=== PATIENT | female | born 1950 | race Caucasian/White ===

== ENCOUNTER 2018-04-28 14:50 | Inpatient (IN) ==
[2018-04-28] MEDS ORDERED: Ipratropium/Albuterol Neb 3 ML IH PRN (15:09)
[2018-04-28] MEDS: *HR* Metformin 500 MG TABLET PO SCH (17:41)
[2018-04-28] MEDS: hydrALAZINE 25 MG TABLET PO SCH (17:45)
[2018-04-28] MEDS: Budesonide/Formoterol 160/4.5 1 PUFF INH IH SCH (22:30)
[2018-04-29] MEDS: hydrALAZINE 25 MG TABLET PO SCH ×3 (00:09→17:26)
[2018-04-29 06:00] LABS: Basophils # 0.1 K/mcL (0.0-0.2); Basophils % 0.9 %; Eosinophils # 0.1 K/mcL (0.0-0.6); Eosinophils % 0.4 %; Hematocrit 48.1 % (35.3-44.9); Hemoglobin 14.9 g/dL (11.5-15.4); Immature Granulocytes % 4.3 % (0-4); Lymphocytes % 15.7 %; Mean Corpuscular Hemoglobin 27.5 pg (28.0-33.3); Mean Corpuscular Volume 88.7 fL (83.0-100.0); Mean Platelet Volume 9.8 fL (9.4-12.4); Monocytes # 1.1 K/mcL (0.0-1.3); Monocytes % 8.9 %; Neutrophils # 8.9 K/mcL (1.6-8.9); Platelet Count 272 K/mcL (140-400); Red Blood Count 5.42 M/mcL (3.82-4.97); Red Cell Distribution Width 15.1 % (11.5-14.5); Segmented Neutrophils % 69.8 %
[2018-04-29 06:25] LABS: Calcium 9.3 mg/dL (8.6-10.3); Potassium 3.4 mEq/L (3.5-5.1)
[2018-04-29] MEDS: *HR* Metformin 500 MG TABLET PO SCH ×2 (08:45→17:26)
[2018-04-29] MEDS: Aspirin 81 MG TAB.CHEW PO SCH (08:45)
[2018-04-29] MEDS: Isosorbide MONOnitrate (24 HR) 60 MG TAB.ER.24H PO SCH (08:46)
[2018-04-29] MEDS: OMEGA ACID ETHYL ESTERS PO SCH (08:47)
[2018-04-29] MEDS ORDERED: levoFLOXacin 500 MG TABLET PO SCH (09:00)
[2018-04-29] MEDS ORDERED: predniSONE 20 MG TABLET PO SCH (09:00)
[2018-04-29] MEDS ORDERED: Furosemide 40 MG TABLET PO SCH (09:00)
[2018-04-29] MEDS: Budesonide/Formoterol 160/4.5 1 PUFF INH IH SCH ×2 (09:33→21:41)
--- NOTE | 2018-04-29 16:08 | Internal Med History&Physical ---
Date of Encounter: 04/29/18 Time of Encounter: 15:25 Assessment and Plan (1) Multifocal pneumonia Current visit: No Status: Acute Continue Levaquin through May 05. Add lactobacillus. (2) Azotemia Current visit: Yes Status: Acute BUN and creatinine are 29 and 1.14 respectively with estimated GFR 48 today. Discontinue Lasix since BN peptide normal. (3) Hypokalemia Current visit: Yes Status: Acute Discontinue Lasix and give supplemental potassium. (4) Hypertension Current visit: No Status: Chronic Continue hydralazine and Cozaar. Qualifiers: Hypertension type: essential hypertension Qualified Code(s): I10 - Essential (primary) hypertension (5) DM type 2 (diabetes mellitus, type 2) Current visit: No Status: Chronic Hemoglobin A1c was 6.1% on 04/26/2018. Decrease prednisone to avoid worsening hyperglycemia. 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 Taper prednisone as per above. Continue Symbicort and use albuterol as needed. Qualifiers: COPD type: COPD with acute exacerbation Qualified Code(s): J44.1 - Chronic obstructive pulmonary disease with (acute) exacerbation (7) (HFpEF) heart failure with preserved ejection fraction Current visit: No Status: Acute Continue hydralazine, Imdur, and Cozaar. Internal Medicine - H&P: HPI Chief complaint: Pneumonia Admitted From: Hospital to Hospital Transfer Plans for Post Hospital Care: Home History of present illness: Ms. Frias is a 67 year old female who was hospitalized at [facility] April 25- for dyspnea felt to be secondary to multifocal pneumonia, exacerbation of COPD, and heart failure. She had elevated BN peptide at 366 on admission which normalized by day of discharge. She received antibiotics and stabilized and was discharged to [facility] swing bed for ongoing antibiotic and therapy intervention prior to returning to independent living at home. Respiratory history is significant for having smoked since age 44 up to 2 packs per day. She has not had PFTs. She qualified for home oxygen at her July 2015 [facility] discharge and states she wears it at bedtime but not during the daytime. She has a diagnosis of MISBAH but states she cannot tolerate CPAP. Past Med Surg Social Fam HX - Past Medical History Medical history: CHF, diabetes, fibromyalgia, GERD, hyperlipidemia, hypertension, other Additional medical history: Deteriorated discs Psychiatric history: depression - Past Surgical History Surgical History: no surgical history - Social History Smoking Status: Current every day smoker Smokeless Tobacco Status: No Alcohol use: none Drug use: none - Family History Mother Living Status: Hx Family Cardiac Disorders: Yes (CHF) Hx Family Respiratory Disorders: Yes (COPD) Hx Family Cancer: Yes (Lung, brain) Hx Family GI Disorders: No Hx Family Endocrine Disorder: No Hx Family Neuromuscular Disorders: No Hx Family Neurologic Disorders: No Hx Family HEENT Disorders: No Hx Family Autoimmune Disorders: No Father Living Status: Internal Medicine - H&P: Meds metFORMIN [Glucophage] 1,000 mg PO BIDWM 07/16/15 [History] Esomeprazole Magnesium [Nexium] 40 mg PO BID 11/22/16 [History] Albuterol Sulfate [Albuterol Inhaler] 1 - 2 puff IH Q6HR PRN 04/25/18 [History] DiphenhydraMINE [Benadryl] 25 mg PO Q4HR 04/25/18 [History] Furosemide [Lasix] 40 mg PO DAILY 04/25/18 [History] [place]-3 Acid Ethyl Esters [Lovaza] 4 gm PO DAILY 04/27/18 [History] Aspirin 81 mg PO DAILY #30 tab.chew 04/28/18 [Rx] Atorvastatin [Lipitor] 40 mg PO HS #30 tablet 04/28/18 [Rx] Budesonide/Formoterol 160/4.5 [Symbicort 160/4.5] 2 puff IH BIDR #1 inh 04/28/18 [Rx] Ipratropium/Albuterol Neb [Duoneb] 3 ml IH [id number] PRN #30 inhsol 04/28/18 [Rx] Isosorbide MONOnitrate (24 HR) [Imdur] 60 mg PO DAILY #30 tab.er.24h 04/28/18 [Rx] Losartan [Cozaar] 100 mg PO DAILY 30 Days #120 tablet 04/28/18 [Rx] hydrALAZINE [HydrALAZINE] 25 mg PO Q8HR 30 Days #90 tablet 04/28/18 [Rx] levoFLOXacin [Levaquin] 500 mg PO Q24H 7 Days #7 tablet 04/28/18 [Rx] predniSONE [PredniSONE] 10 mg PO TAPER 7 Days #21 tablet 04/28/18 [Rx] predniSONE [PredniSONE] 40 mg PO DAILY 7 Days #14 tablet 04/28/18 [Rx] Allergy/AdvReac Type Severity Reaction Status Date / Time amlodipine [From [facility]] Allergy Palpitation Verified 04/26/18 02:07 s Methadone Allergy See Verified 04/25/18 17:01 Comments metoprolol Allergy Itching Verified 04/25/18 17:01 All Systems PM: A 10-system review of systems was performed and is negative for pertinent findings except as documented above in the HPI. Review of systems: Gen.: Her weight is minimally changed from 113.398 kg on 07/16/2015 to 111.272 kg at present. Cardiovascular: She has a history of hypertension but no IL heart failure angina DVT or pulmonary embolus. She had an exercise stress test approximately 2009 which did not show ischemia. Echocardiogram during her recent [facility] stay showed LVEF of 75% and hyperdynamic LV. Interventricular septum and posterior wall thickness measurements were 1.60 and 1.00 cm respectively. The E/A ratio was 0.7. Respiratory: As per history of present illness GI: She has GERD and hiatal hernia but no known disorder of her liver or exocrine pancreas. She has known gallstones. : She denies hematuria dysuria or kidney stones. Neurologic: She denies large distribution strokes or seizures. Endocrine: She was diagnosed with DM 2 in 2012. She has hyperlipidemia but no known thyroid disease. Hematology/oncology: She denies blood disorders cancers or anemia Psychiatric: She has depression but does not take medication. She denies anxiety or other mental health issues Musk skeletal: She has degenerative disc disease and degenerative joint disease. She has chronic low back pain. She denies known gout or osteoporosis. - Constitutional Vitals: Temp Pulse Resp BP Pulse Ox 98.2 F 67 18 131/75 93 04/29/18 07:23 04/29/18 07:23 04/29/18 09:34 04/29/18 07:23 04/29/18 09:34 Exam: Gen.: She is a well-developed obese female lying in bed who appears in no severe distress at present time HEENT: Head is atraumatic and normocephalic. Eyes: EOMI. There is no scleral icterus. Mouth: Mucosa is moist. Neck: Supple and nontender. There is no thyromegaly or adenopathy noted. Heart: Regular without murmurs gallops or ectopics Lungs: No wheezes or crackles are heard. Abdomen: Soft and nontender. No masses or guarding are noted. Extremities: There is no cyanosis edema or clubbing noted. Dorsalis pedis and posttibial pulses are trace palpable bilaterally. Her feet are warm to touch. She has chronic venous stasis pigmentation changes bilaterally. Neurologic: Mental status: She is talkative and a good historian. Cranial nerves: Smile is symmetric. Forehead wrinkles bilaterally. Tongue protrudes midline. EOMI. Motor: There is no pronator drift. Cerebellar: Finger to nose is intact bilaterally. Skin: Warm and dry Internal Med - H&P Results - Labs CBC & Chem 7: 04/29/18 05:15 04/29/18 05:15 Labs: Short CBC 04/29/18 Range/Units 05:15 WBC 12.8 H (4.3-11.1) K/mcL Hgb 14.9 (11.5-15.4) g/dL Hct 48.1 H (35.3-44.9) % Plt Count 272 (140-400) K/mcL Neutrophils # 8.9 (1.6-8.9) K/mcL BMP 04/29/18 05:15 Sodium 136 Potassium 3.4 L Chloride 92 L Carbon Dioxide 33 H BUN 29 H Creatinine 1.14 Glucose 129 H Calcium 9.3
[2018-04-29 17:36] LABS: Magnesium 2.1 mg/dL (1.6-2.6)
[2018-04-29 17:48] LABS: Thyroid Stimulating Hormone 0.594 mcIU/mL (0.340-5.600)
[2018-04-29] MEDS: Lactobacillus 1 EACH CAP.SPRINK PO SCH (20:55)
[2018-04-30] MEDS: hydrALAZINE 25 MG TABLET PO SCH ×3 (00:11→16:34)
[2018-04-30] MEDS: *HR* Metformin 500 MG TABLET PO SCH ×2 (09:18→16:34)
[2018-04-30] MEDS: predniSONE 20 MG TABLET PO SCH (09:18)
[2018-04-30] MEDS: Isosorbide MONOnitrate (24 HR) 60 MG TAB.ER.24H PO SCH (09:18)
[2018-04-30] MEDS: Aspirin 81 MG TAB.CHEW PO SCH (09:18)
[2018-04-30] MEDS: Lactobacillus 1 EACH CAP.SPRINK PO SCH ×2 (09:18→22:03)
[2018-04-30] MEDS: OMEGA ACID ETHYL ESTERS PO SCH (09:19)
[2018-04-30] MEDS: Budesonide/Formoterol 160/4.5 1 PUFF INH IH SCH ×2 (09:26→22:07)
--- NOTE | 2018-04-30 11:17 | Internal Med Progress Note ---
Date of Encounter: 04/30/18 Time of Encounter: 11:10 - Assessment and plan (1) Multifocal pneumonia Current Visit: No Status: Acute Assessment and plan: April 30. Continue oral Levaquin and lactobacillus through May 05. (2) Azotemia Current Visit: Yes Status: Acute Assessment and plan: April 30. Remain off Lasix and monitor labs. (3) Hypokalemia Current Visit: Yes Status: Acute Assessment and plan: April 30. Remain off Lasix and monitor labs. (4) Hypertension Current Visit: No Status: Chronic Assessment and plan: April 30. Continue hydralazine and Cozaar Qualifiers: Hypertension type: essential hypertension Qualified Code(s): I10 - Essential (primary) hypertension (5) DM type 2 (diabetes mellitus, type 2) Current Visit: No Status: Chronic Assessment and plan: April 30. Hemoglobin A1c was 6.1% on 04/26/2018. Continue Glucophage and lower dose prednisone. Qualifiers: Diabetes mellitus roll changer insulin use: with halfway use Diabetes mellitus complication status: with unspecified complications Qualified Code(s): E11.8 - Type 2 diabetes mellitus with unspecified complications; Z79.4 - long-term (current) use of insulin (6) COPD (chronic obstructive pulmonary disease) Current Visit: No Status: Acute Assessment and plan: April 30. Continue Symbicort and tapering prednisone. Qualifiers: COPD type: COPD with acute exacerbation Qualified Code(s): J44.1 - Chronic obstructive pulmonary disease with (acute) exacerbation (7) (HFpEF) heart failure with preserved ejection fraction Current Visit: No Status: Acute Assessment and plan: April 30. Continue hydralazine, Imdur, and Cozaar - Subjective Interval history: April 30. She has no new complaints and feels better. She states she has ambulated to the bathroom using a wheeled walker with contact guard assist from staff. - Constitutional Vitals: Temp Pulse Resp BP Pulse Ox 98.1 F 71 17 133/77 96 04/30/18 07:01 04/30/18 07:01 04/30/18 07:01 04/30/18 07:01 04/30/18 07:01 Exam: She is resting comfortably in bed and appears in no acute distress. Her affect is bright and cheerful. I reviewed her medications and lab results. Internal Medicine: Result - Labs CBC & Chem 7: 04/29/18 05:15 04/29/18 05:15 Consult Discharge Plan - Plan Referrals: NONE,PCP [Primary Care Provider] - 1 week
[2018-05-01] MEDS: hydrALAZINE 25 MG TABLET PO SCH ×3 (00:27→16:10)
[2018-05-01 05:00] LABS: Basophils % 0.2 %; Eosinophils # 0.1 K/mcL (0.0-0.6); Eosinophils % 0.3 %; Hematocrit 49.1 % (35.3-44.9); Hemoglobin 15.6 g/dL (11.5-15.4); Immature Granulocytes % 6.1 % (0-4); Lymphocytes # 2.4 K/mcL (0.6-4.6); Lymphocytes % 13.7 %; Mean Corpuscular HGB Conc 31.8 g/dL (31.6-35.5); Mean Corpuscular Hemoglobin 27.4 pg (28.0-33.3); Mean Corpuscular Volume 86.1 fL (83.0-100.0); Mean Platelet Volume 9.5 fL (9.4-12.4); Monocytes # 1.1 K/mcL (0.0-1.3); Monocytes % 6.5 %; Neutrophils # 12.7 K/mcL (1.6-8.9); Platelet Count 311 K/mcL (140-400); Red Cell Distribution Width 15.1 % (11.5-14.5); Segmented Neutrophils % 73.2 %
[2018-05-01 05:21] LABS: BUN/Creatinine Ratio 25 (6-26); Blood Urea Nitrogen 28 mg/dL (8-23); Calcium 9.4 mg/dL (8.6-10.3); Carbon Dioxide 31 mEq/L (23-29); Chloride 93 mEq/L (98-107); Glucose 144 mg/dL (70-105); Osmolality,Calculated 284 (280-300); Potassium 3.5 mEq/L (3.5-5.1); Sodium 133 mEq/L (136-145); eGFR For Non-African Americans 50 (> 60)
[2018-05-01 05:31] LABS: Platelet Estimate Normal (Normal)
[2018-05-01] MEDS: *HR* Metformin 500 MG TABLET PO SCH (07:17)
[2018-05-01] MEDS: OMEGA ACID ETHYL ESTERS PO SCH (08:08)
[2018-05-01] MEDS: Aspirin 81 MG TAB.CHEW PO SCH (08:11)
[2018-05-01] MEDS: Isosorbide MONOnitrate (24 HR) 60 MG TAB.ER.24H PO SCH (08:12)
[2018-05-01] MEDS: Lactobacillus 1 EACH CAP.SPRINK PO SCH ×2 (08:12→20:08)
[2018-05-01] MEDS: predniSONE 20 MG TABLET PO SCH (08:13)
[2018-05-01] MEDS ORDERED: levoFLOXacin 500 MG TABLET PO SCH (09:00)
[2018-05-01] MEDS: Budesonide/Formoterol 160/4.5 1 PUFF INH IH SCH ×2 (09:40→21:48)
--- NOTE | 2018-05-01 10:55 | Internal Med Progress Note ---
Date of Encounter: 05/01/18 Time of Encounter: 10:45 - Assessment and plan (1) Multifocal pneumonia Current Visit: No Status: Acute Assessment and plan: April 30. Continue oral Levaquin and lactobacillus through May 05. (2) Azotemia Current Visit: Yes Status: Acute Assessment and plan: April 30. Remain off Lasix and monitor labs. (3) Hypokalemia Current Visit: Yes Status: Acute Assessment and plan: April 30. Remain off Lasix and monitor labs. May 01. Potassium improved to 3.5 and creatinine decreased to 1.10. Continue present management. (4) Hypertension Current Visit: No Status: Chronic Assessment and plan: April 30. Continue hydralazine and Cozaar Qualifiers: Hypertension type: essential hypertension Qualified Code(s): I10 - Essential (primary) hypertension (5) DM type 2 (diabetes mellitus, type 2) Current Visit: No Status: Chronic Assessment and plan: April 30. Hemoglobin A1c was 6.1% on 04/26/2018. Continue Glucophage and lower dose prednisone. May 01. Hold Glucophage and discontinue prednisone and see if blood sugars remain stable and diarrhea improves. Qualifiers: Diabetes mellitus care home insulin use: with care home use Diabetes mellitus complication status: with unspecified complications Qualified Code(s): E11.8 - Type 2 diabetes mellitus with unspecified complications; Z79.4 - senior care (current) use of insulin (6) COPD (chronic obstructive pulmonary disease) Current Visit: No Status: Acute Assessment and plan: April 30. Continue Symbicort and tapering prednisone. May 01. Continue Symbicort. Discontinue prednisone. Qualifiers: COPD type: COPD with acute exacerbation Qualified Code(s): J44.1 - Chronic obstructive pulmonary disease with (acute) exacerbation (7) (HFpEF) heart failure with preserved ejection fraction Current Visit: No Status: Acute Assessment and plan: April 30. Continue hydralazine, Imdur, and Cozaar (8) Insomnia Current Visit: Yes Status: Acute Assessment and plan: May 01. Order trazodone. Qualifiers: Insomnia type: unspecified Qualified Code(s): G47.00 - Insomnia, unspecified - Subjective Interval history: April 30. She has no new complaints and feels better. She states she has ambulated to the bathroom using a wheeled walker with contact guard assist from staff. May 01. She states she is fatigued from having multiple episodes of "diarrhea" during the evening and did not sleep well. - Constitutional Vitals: Temp Pulse Resp BP Pulse Ox 98.3 F 96 17 163/77 97 05/01/18 07:08 05/01/18 07:08 05/01/18 07:08 05/01/18 07:08 05/01/18 07:08 Exam: She is resting comfortably in bed and appears in no acute distress. Her affect is overall cheerful. Her lungs are clear. I reviewed her medications and lab results. Internal Medicine: Result - Labs CBC & Chem 7: 05/01/18 04:36 05/01/18 04:36 Labs: Short CBC 05/01/18 Range/Units 04:36 WBC 17.4 H (4.3-11.1) K/mcL Hgb 15.6 H (11.5-15.4) g/dL Hct 49.1 H (35.3-44.9) % Plt Count 311 (140-400) K/mcL Neutrophils # 12.7 H (1.6-8.9) K/mcL BMP 05/01/18 04:36 Sodium 133 L Potassium 3.5 Chloride 93 L Carbon Dioxide 31 H BUN 28 H Creatinine 1.10 Glucose 144 H Calcium 9.4 Consult Discharge Plan - Plan Referrals: NONE,PCP [Primary Care Provider] - 1 week ([facility] Tuesday @ 1100AM at [facility]. )
[2018-05-01] MEDS ORDERED: traZODone 50 MG TABLET PO SCH (21:00)
[2018-05-02] MEDS: hydrALAZINE 25 MG TABLET PO SCH ×2 (00:22→08:25)
[2018-05-02 05:41] VITALS: BP 146/79
[2018-05-02] MEDS: Aspirin 81 MG TAB.CHEW PO SCH (08:25)
[2018-05-02] MEDS: Isosorbide MONOnitrate (24 HR) 60 MG TAB.ER.24H PO SCH (08:25)
[2018-05-02] MEDS: Lactobacillus 1 EACH CAP.SPRINK PO SCH (08:26)
[2018-05-02] MEDS: OMEGA ACID ETHYL ESTERS PO SCH (08:29)
[2018-05-02] MEDS ORDERED: levoFLOXacin 500 MG TABLET PO SCH (09:00)
[2018-05-02] MEDS: Budesonide/Formoterol 160/4.5 1 PUFF INH IH SCH (09:20)
--- NOTE | 2018-05-02 10:50 | Discharge Summary ---
Orders not resulted at time of discharge: Pending orders 05/17/18 15:43 CT chest wo con [CT] Routine Date of Encounter: 05/02/18 Time of Encounter: 10:40 - Discharge Diagnosis (1) Multifocal pneumonia Priority: Primary Status: Acute (2) Azotemia Priority: Secondary Status: Acute (3) Hypokalemia Priority: Secondary Status: Acute (4) Hypertension Priority: Secondary Status: Chronic Qualifiers: Hypertension type: essential hypertension Qualified Code(s): I10 - Essential (primary) hypertension (5) DM type 2 (diabetes mellitus, type 2) Priority: Secondary Status: Chronic Qualifiers: Diabetes mellitus half-way insulin use: with salvage determiner use Diabetes mellitus complication status: with unspecified complications Qualified Code(s): E11.8 - Type 2 diabetes mellitus with unspecified complications; Z79.4 - superintendent marine oil terminal (current) use of insulin (6) COPD (chronic obstructive pulmonary disease) Priority: Secondary Status: Acute Qualifiers: COPD type: COPD with acute exacerbation Qualified Code(s): J44.1 - Chronic obstructive pulmonary disease with (acute) exacerbation (7) (HFpEF) heart failure with preserved ejection fraction Priority: Secondary Status: Acute (8) Insomnia Priority: Secondary Status: Acute Qualifiers: Insomnia type: unspecified Qualified Code(s): G47.00 - Insomnia, unspecified Hospital course: Ms. Frias is a 67 year old female who was hospitalized at [facility] April 25- for dyspnea felt to be secondary to multifocal pneumonia, exacerbation of COPD, and heart failure. She had elevated BN peptide at 366 on admission which normalized by day of discharge. She received antibiotics and stabilized and was discharged to [facility] swing bed for ongoing antibiotic and therapy intervention prior to returning to independent living at home. Initial orders were written by the discharging physicians at [facility]. I saw her on April 29 and performed a swing bed history and physical. She was continued on Levaquin. Lactobacillus was added. She remained afebrile during her hospital stay. WBC re to 17.4 with 73.2% segs on May 01. Follow-up labs were planned before discharge but on May 02 she stated she wished to be discharged home and follow up as an outpatient. Her PCP can monitor labs. Lasix was discontinued since she had no clinical or lab evidence of heart failure. BN peptide remained normal during her hospital stay. She will remain off Lasix at discharge. Azotemia and hypokalemia improved off diuretics with potassium level rising to 3.5 by May 01. BUN and creatinine had improved to 28 and 1.10 respectively with estimated GFR 50 by May 01. Blood pressure remained well controlled on hydralazine and Cozaar. She complained of diarrhea. Glucophage was held and prn Imodium was given. Diarrhea resolved by day of discharge. Blood sugars remain satisfactorily controlled. She will remain off Glucophage at discharge. She will follow with her PCP Suman Scott CNP within 1 week. I encouraged her to wear her oxygen 29/11. PCP can monitor oximetry on room air to see if continuous use is still required. - Time Spent with Patient Total time spent providing and/or coordinating discharge services: - Discharge Medications Prescriptions: Lactobacillus [Culturelle] 1 each PO BID #6 cap.sprink levoFLOXacin [Levaquin] 500 mg PO Q24H #3 tablet Home Medications: Albuterol Sulfate [Albuterol Inhaler] 1 - 2 puff IH Q6HR PRN 04/25/18 [History] [place]-3 Acid Ethyl Esters [Lovaza] 4 gm PO DAILY 04/27/18 [History] Aspirin 81 mg PO DAILY #30 tab.chew 04/28/18 [Rx] Atorvastatin [Lipitor] 40 mg PO HS #30 tablet 04/28/18 [Rx] Budesonide/Formoterol 160/4.5 [Symbicort 160/4.5] 2 puff IH BIDR #1 inh 04/28/18 [Rx] Ipratropium/Albuterol Neb [Duoneb] 3 ml IH [id number] PRN #30 inhsol 04/28/18 [Rx] Isosorbide MONOnitrate (24 HR) [Imdur] 60 mg PO DAILY #30 tab.er.24h 04/28/18 [Rx] Losartan [Cozaar] 100 mg PO DAILY 30 Days #120 tablet 04/28/18 [Rx] hydrALAZINE [HydrALAZINE] 25 mg PO Q8HR 30 Days #90 tablet 04/28/18 [Rx] Lactobacillus [Culturelle] 1 each PO BID #6 cap.sprink 05/02/18 [Rx] levoFLOXacin [Levaquin] 500 mg PO Q24H #3 tablet 12/25/18 [Rx] Allergies/Adverse Reactions: Allergy/AdvReac Type Severity Reaction Status Date / Time amlodipine [From [facility]] Allergy Palpitation Verified 04/26/18 02:07 s Methadone Allergy See Verified 04/25/18 17:01 Comments metoprolol Allergy Itching Verified 04/25/18 17:01 Date of admission: 04/28/18 15:01 Primary care physician: Suman Scott CNP Consults: 04/28/18 15:22 Consult to Physical Therapy [CONS] Routine Comment: Evaluate, develop and implement POC Reason for Consult: Evaluate, develop and implement POC Does patient have active BEDREST order?: No Is patient medically & hemodynamically stable?: Yes Patient assessed for mobility or mobilized this visit?: Yes OT [Consult to Occupational Therapy] [CONS] Routine Comment: Evaluate, develop and implement POC Reason for Consult: Evaluate, develop and implement POC Does patient have active BEDREST order?: No Is patient medically & hemodynamically stable?: Yes Patient assessed for mobility or mobilized this visit?: Yes 04/29/18 16:23 Consult to Physical Therapy [CONS] Routine Comment: Evaluate, develop and implement POC Reason for Consult: Weakness Does patient have active BEDREST order?: No Is patient medically & hemodynamically stable?: Yes Patient assessed for mobility or mobilized this visit?: Yes - Constitutional Vitals: Temp Pulse Resp BP Pulse Ox 98.3 F 105 16 146/79 95 05/02/18 05:40 05/02/18 05:40 05/02/18 09:21 05/02/18 05:40 05/02/18 09:21 - Patient Status Disposition: Home, Self-Care - Discharge Instructions Follow Up With: Suman Scott, [place] [Advanced Practice Nurse] - 1 week - Diet and Activity Activity: resume usual activities as tolerated, wear oxygen at all times Diet: diabetic diet
== END 2018-05-02 12:20 | disposition home or self-care (01) | DRG 194 ==
LOC: INPPIK 15:01
PROVIDERS: ADMIT Internal Medicine; ATTEND Internal Medicine

== ENCOUNTER 2020-09-11 11:27 | Inpatient (IN) ==
[2020-09-11] MEDS: Ipratropium 1 PUFF INHALER IH SCH ×2 (16:20→20:45)
[2020-09-11] MEDS: Levalbuterol 1 PUFF INHALER IH SCH ×2 (16:21→20:45)
[2020-09-11] MEDS: *HR* Rivaroxaban 10 MG TABLET PO SCH (17:11)
[2020-09-11] MEDS: Gabapentin 400 MG CAPSULE PO SCH ×2 (17:11→21:23)
[2020-09-11] MEDS: carvediloL 25 MG TABLET PO SCH (17:12)
[2020-09-11] MEDS: *HR* Metformin 500 MG TABLET PO SCH (17:12)
[2020-09-11] MEDS: Budesonide/Formoterol 160/4.5 1 PUFF INH IH SCH (20:46)
[2020-09-12] MEDS: Levalbuterol 1 PUFF INHALER IH SCH ×6 (00:46→21:45)
[2020-09-12] MEDS: Ipratropium 1 PUFF INHALER IH SCH ×6 (00:47→21:44)
[2020-09-12] MEDS: Levothyroxine 25 MCG TABLET PO SCH (04:35)
[2020-09-12 06:38] LABS: Basophils # 0.1 K/mcL (0.0-0.2); Basophils % 0.6 %; Eosinophils % 0.2 %; Hematocrit 37.3 % (35.3-44.9); Hemoglobin 10.9 g/dL (11.5-15.4); Immature Granulocytes % 4.5 % (0-4); Lymphocytes % 7.1 %; Mean Corpuscular HGB Conc 29.2 g/dL (31.6-35.5); Mean Corpuscular Hemoglobin 23.1 pg (28.0-33.3); Mean Platelet Volume 9.3 fL (9.4-12.4); Monocytes # 0.9 K/mcL (0.0-1.3); Monocytes % 6.5 %; Neutrophils # 11.8 K/mcL (1.6-8.9); Nucleated Red Blood Cells 0.1 /100 WBC (0); Platelet Count 295 K/mcL (140-400); Red Blood Count 4.72 M/mcL (3.82-4.97); Red Cell Distribution Width 16.4 % (11.5-14.5); Segmented Neutrophils % 81.1 %; White Blood Count 14.5 K/mcL (4.3-11.1)
[2020-09-12 07:18] LABS: BUN/Creatinine Ratio 39 (6-26); Blood Urea Nitrogen 31 mg/dL (8-23); Calcium 8.8 mg/dL (8.6-10.3); Carbon Dioxide 27 mEq/L (23-29); Chloride 100 mEq/L (98-107); Glucose 145 mg/dL (70-105); Osmolality,Calculated 293 (280-300); Potassium 4.2 mEq/L (3.5-5.1); Sodium 137 mEq/L (136-145); eGFR For African Americans > 60 (> 60); eGFR For Non-African Americans > 60 (> 60)
[2020-09-12] MEDS: Budesonide/Formoterol 160/4.5 1 PUFF INH IH SCH ×2 (07:55→21:43)
[2020-09-12] MEDS: Furosemide 40 MG TABLET PO SCH (08:48)
[2020-09-12] MEDS: carvediloL 25 MG TABLET PO SCH ×2 (08:48→16:23)
[2020-09-12] MEDS: Aspirin 81 MG TAB.CHEW PO SCH (08:48)
[2020-09-12] MEDS: *HR* Metformin 500 MG TABLET PO SCH ×2 (08:48→16:23)
[2020-09-12] MEDS: Gabapentin 400 MG CAPSULE PO SCH ×3 (08:48→20:46)
[2020-09-12] MEDS: DilTIAZem CD (24hr) 180 MG CAP.ER.24H PO SCH (08:48)
[2020-09-12] MEDS: *HR* Rivaroxaban 10 MG TABLET PO SCH (16:24)
[2020-09-12] MEDS: Methyl Salicylate/Menthol 57 APPL/57 GM TUBE TP PRN (16:25)
[2020-09-12] MEDS: Insulin LISPRO 300 UNITS/3 ML VIAL SUBQ SCH ×2 (16:37→20:46)
[2020-09-13] MEDS: Levalbuterol 1 PUFF INHALER IH SCH ×4 (03:06→22:02)
[2020-09-13] MEDS: Ipratropium 1 PUFF INHALER IH SCH ×4 (03:07→22:02)
[2020-09-13] MEDS: Levothyroxine 25 MCG TABLET PO SCH (05:50)
[2020-09-13] MEDS: Insulin LISPRO 300 UNITS/3 ML VIAL SUBQ SCH ×4 (08:07→21:10)
[2020-09-13] MEDS: carvediloL 25 MG TABLET PO SCH ×2 (08:08→17:36)
[2020-09-13] MEDS: Aspirin 81 MG TAB.CHEW PO SCH (08:08)
[2020-09-13] MEDS: DilTIAZem CD (24hr) 180 MG CAP.ER.24H PO SCH (08:08)
[2020-09-13] MEDS: *HR* Metformin 500 MG TABLET PO SCH ×2 (08:08→17:36)
[2020-09-13] MEDS: Furosemide 40 MG TABLET PO SCH (08:08)
[2020-09-13] MEDS: Gabapentin 400 MG CAPSULE PO SCH ×3 (08:08→21:09)
[2020-09-13] MEDS: Budesonide/Formoterol 160/4.5 1 PUFF INH IH SCH ×2 (09:22→22:01)
[2020-09-13] MEDS ORDERED: 0.9 % Sodium Chloride 500 ML IVC ONE (12:18)
[2020-09-13] MEDS ORDERED: 0.9 % Sodium Chloride 500 ML ONE (13:48)
[2020-09-13] MEDS ORDERED: 0.9 % Sodium Chloride 500 ML IVC PRN (13:50)
[2020-09-13] MEDS: *HR* Rivaroxaban 10 MG TABLET PO SCH (17:36)
[2020-09-14] MEDS: Levalbuterol 1 PUFF INHALER IH SCH ×4 (04:47→22:56)
[2020-09-14] MEDS: Ipratropium 1 PUFF INHALER IH SCH ×4 (04:48→22:57)
[2020-09-14] MEDS: Levothyroxine 25 MCG TABLET PO SCH (05:20)
[2020-09-14] MEDS: DilTIAZem CD (24hr) 180 MG CAP.ER.24H PO SCH (07:53)
[2020-09-14] MEDS: Furosemide 40 MG TABLET PO SCH (07:53)
[2020-09-14] MEDS: *HR* Metformin 500 MG TABLET PO SCH ×2 (07:53→16:35)
[2020-09-14] MEDS: Insulin LISPRO 300 UNITS/3 ML VIAL SUBQ SCH ×3 (07:53→16:36)
[2020-09-14] MEDS: Aspirin 81 MG TAB.CHEW PO SCH (07:53)
[2020-09-14] MEDS: Gabapentin 400 MG CAPSULE PO SCH ×3 (07:53→19:27)
[2020-09-14] MEDS: Budesonide/Formoterol 160/4.5 1 PUFF INH IH SCH ×2 (09:52→22:56)
[2020-09-14] MEDS: Nystatin Cream 15 GM TUBE TP SCH ×2 (15:21→19:29)
[2020-09-14] MEDS: *HR* Rivaroxaban 10 MG TABLET PO SCH (16:35)
[2020-09-15] MEDS: Levalbuterol 1 PUFF INHALER IH SCH ×4 (04:24→22:50)
[2020-09-15] MEDS: Ipratropium 1 PUFF INHALER IH SCH ×4 (04:24→22:49)
[2020-09-15] MEDS: Levothyroxine 25 MCG TABLET PO SCH (06:02)
[2020-09-15] MEDS: Insulin LISPRO 300 UNITS/3 ML VIAL SUBQ SCH ×5 (06:03→20:22)
[2020-09-15 07:18] LABS: Basophils % 0.2 %; Eosinophils # 0.4 K/mcL (0.0-0.6); Eosinophils % 3.4 %; Hematocrit 34.3 % (35.3-44.9); Immature Granulocytes % 1.5 % (0-4); Lymphocytes # 0.8 K/mcL (0.6-4.6); Lymphocytes % 6.4 %; Mean Corpuscular HGB Conc 29.2 g/dL (31.6-35.5); Mean Corpuscular Hemoglobin 23.3 pg (28.0-33.3); Mean Platelet Volume 10.1 fL (9.4-12.4); Monocytes # 0.9 K/mcL (0.0-1.3); Platelet Count 285 K/mcL (140-400); Red Blood Count 4.29 M/mcL (3.82-4.97); Segmented Neutrophils % 81.5 %; White Blood Count 12.6 K/mcL (4.3-11.1)
[2020-09-15 07:27] LABS: BUN/Creatinine Ratio 28 (6-26); Blood Urea Nitrogen 22 mg/dL (8-23); Calcium 8.4 mg/dL (8.6-10.3); Carbon Dioxide 35 mEq/L (23-29); Chloride 99 mEq/L (98-107); Glucose 216 mg/dL (70-105); Osmolality,Calculated 296 (280-300); Potassium 4.2 mEq/L (3.5-5.1); Sodium 138 mEq/L (136-145); eGFR For African Americans > 60 (> 60); eGFR For Non-African Americans > 60 (> 60)
[2020-09-15 07:32] LABS: Neutrophils # 10.3 K/mcL (1.6-8.9)
[2020-09-15] MEDS: Gabapentin 400 MG CAPSULE PO SCH ×3 (07:39→20:23)
[2020-09-15] MEDS: carvediloL 25 MG TABLET PO SCH ×2 (07:39→17:03)
[2020-09-15] MEDS: Aspirin 81 MG TAB.CHEW PO SCH (07:39)
[2020-09-15] MEDS: *HR* Metformin 500 MG TABLET PO SCH ×2 (07:39→17:02)
[2020-09-15] MEDS: Nystatin Cream 15 GM TUBE TP SCH ×3 (07:39→20:31)
[2020-09-15] MEDS: DilTIAZem CD (24hr) 180 MG CAP.ER.24H PO SCH (07:40)
[2020-09-15] MEDS: Furosemide 40 MG TABLET PO SCH (07:40)
[2020-09-15] MEDS: Budesonide/Formoterol 160/4.5 1 PUFF INH IH SCH ×2 (09:12→22:49)
[2020-09-15] MEDS ORDERED: Acetaminophen 325 MG TABLET PO PRN (16:48)
[2020-09-15] MEDS: *HR* Rivaroxaban 10 MG TABLET PO SCH (17:04)
[2020-09-16] MEDS: Ipratropium 1 PUFF INHALER IH SCH ×4 (04:28→21:42)
[2020-09-16] MEDS: Levalbuterol 1 PUFF INHALER IH SCH ×4 (04:28→21:43)
[2020-09-16] MEDS: Levothyroxine 25 MCG TABLET PO SCH (05:24)
[2020-09-16] MEDS: carvediloL 25 MG TABLET PO SCH ×2 (08:31→16:53)
[2020-09-16] MEDS: DilTIAZem CD (24hr) 180 MG CAP.ER.24H PO SCH (08:31)
[2020-09-16] MEDS: Aspirin 81 MG TAB.CHEW PO SCH (08:32)
[2020-09-16] MEDS: Gabapentin 400 MG CAPSULE PO SCH ×3 (08:32→20:33)
[2020-09-16] MEDS: *HR* Metformin 500 MG TABLET PO SCH ×2 (08:32→16:53)
[2020-09-16] MEDS: Furosemide 40 MG TABLET PO SCH (08:32)
[2020-09-16] MEDS: Insulin LISPRO 300 UNITS/3 ML VIAL SUBQ SCH ×4 (08:33→21:54)
[2020-09-16] MEDS: Budesonide/Formoterol 160/4.5 1 PUFF INH IH SCH ×2 (10:51→21:44)
[2020-09-16] MEDS: Nystatin Cream 15 GM TUBE TP SCH ×3 (12:12→20:33)
[2020-09-16] MEDS: *HR* Rivaroxaban 10 MG TABLET PO SCH (16:53)
[2020-09-17] MEDS: Levalbuterol 1 PUFF INHALER IH SCH ×2 (04:15→11:03)
[2020-09-17] MEDS: Ipratropium 1 PUFF INHALER IH SCH ×2 (04:16→11:03)
[2020-09-17] MEDS: Levothyroxine 25 MCG TABLET PO SCH (05:47)
[2020-09-17] MEDS: Aspirin 81 MG TAB.CHEW PO SCH (07:48)
[2020-09-17] MEDS: Gabapentin 400 MG CAPSULE PO SCH ×3 (07:48→19:44)
[2020-09-17] MEDS: Furosemide 40 MG TABLET PO SCH (07:48)
[2020-09-17] MEDS: DilTIAZem CD (24hr) 180 MG CAP.ER.24H PO SCH (07:48)
[2020-09-17] MEDS: Nystatin Cream 15 GM TUBE TP SCH ×3 (07:48→19:45)
[2020-09-17] MEDS: *HR* Metformin 500 MG TABLET PO SCH ×2 (07:48→16:59)
[2020-09-17] MEDS: carvediloL 25 MG TABLET PO SCH ×2 (07:48→16:59)
[2020-09-17] MEDS: Insulin LISPRO 300 UNITS/3 ML VIAL SUBQ SCH ×4 (07:51→19:45)
[2020-09-17] MEDS: Budesonide/Formoterol 160/4.5 1 PUFF INH IH SCH ×2 (11:04→22:15)
[2020-09-17] MEDS ORDERED: Ipratropium 1 PUFF INHALER IH PRN (14:16)
[2020-09-17] MEDS ORDERED: Levalbuterol 1 PUFF INHALER IH PRN (14:19)
[2020-09-17] MEDS: *HR* Rivaroxaban 10 MG TABLET PO SCH (16:59)
[2020-09-17] MEDS: Simethicone 80 MG TAB.CHEW PO PRN (16:59)
[2020-09-17] MEDS: hydrOXYzine pamoate 25 MG CAPSULE PO PRN (16:59)
[2020-09-18] MEDS: Levothyroxine 25 MCG TABLET PO SCH (05:02)
[2020-09-18] MEDS: Budesonide/Formoterol 160/4.5 1 PUFF INH IH SCH ×2 (07:42→22:45)
[2020-09-18] MEDS: DilTIAZem CD (24hr) 180 MG CAP.ER.24H PO SCH (08:16)
[2020-09-18] MEDS: Gabapentin 400 MG CAPSULE PO SCH ×3 (08:16→20:06)
[2020-09-18] MEDS: *HR* Metformin 500 MG TABLET PO SCH ×2 (08:16→16:55)
[2020-09-18] MEDS: Aspirin 81 MG TAB.CHEW PO SCH (08:16)
[2020-09-18] MEDS: Insulin LISPRO 300 UNITS/3 ML VIAL SUBQ SCH ×4 (08:16→20:07)
[2020-09-18] MEDS: carvediloL 25 MG TABLET PO SCH ×2 (08:16→16:55)
[2020-09-18] MEDS: Furosemide 40 MG TABLET PO SCH (08:16)
[2020-09-18] MEDS: Nystatin Cream 15 GM TUBE TP SCH (08:18)
[2020-09-18] MEDS: Nystatin POWDER 30 GM BOTTLE TP SCH ×2 (11:36→21:28)
[2020-09-18] MEDS: *HR* Rivaroxaban 10 MG TABLET PO SCH (16:55)
[2020-09-18] MEDS: Simethicone 80 MG TAB.CHEW PO PRN (16:55)
[2020-09-19] MEDS: Levothyroxine 25 MCG TABLET PO SCH (05:04)
[2020-09-19] MEDS: hydrOXYzine pamoate 25 MG CAPSULE PO PRN ×2 (08:38→20:37)
[2020-09-19] MEDS: *HR* Metformin 500 MG TABLET PO SCH ×2 (08:38→15:38)
[2020-09-19] MEDS: Gabapentin 400 MG CAPSULE PO SCH ×3 (08:38→20:37)
[2020-09-19] MEDS: DilTIAZem CD (24hr) 180 MG CAP.ER.24H PO SCH (08:38)
[2020-09-19] MEDS: Furosemide 40 MG TABLET PO SCH (08:38)
[2020-09-19] MEDS: Insulin LISPRO 300 UNITS/3 ML VIAL SUBQ SCH ×4 (08:39→20:38)
[2020-09-19] MEDS: carvediloL 25 MG TABLET PO SCH ×2 (08:39→15:38)
[2020-09-19] MEDS: Aspirin 81 MG TAB.CHEW PO SCH (08:39)
[2020-09-19] MEDS: Budesonide/Formoterol 160/4.5 1 PUFF INH IH SCH ×2 (09:53→22:17)
[2020-09-19] MEDS: Nystatin POWDER 30 GM BOTTLE TP SCH ×2 (15:08→20:40)
[2020-09-19] MEDS: *HR* Rivaroxaban 10 MG TABLET PO SCH (15:38)
[2020-09-20] MEDS: Levothyroxine 25 MCG TABLET PO SCH (05:11)
[2020-09-20] MEDS: *HR* Metformin 500 MG TABLET PO SCH ×2 (09:02→16:33)
[2020-09-20] MEDS: carvediloL 25 MG TABLET PO SCH ×2 (09:02→16:33)
[2020-09-20] MEDS: DilTIAZem CD (24hr) 180 MG CAP.ER.24H PO SCH (09:02)
[2020-09-20] MEDS: Simethicone 80 MG TAB.CHEW PO PRN (09:03)
[2020-09-20] MEDS: Nystatin POWDER 30 GM BOTTLE TP SCH ×2 (09:03→20:57)
[2020-09-20] MEDS: Aspirin 81 MG TAB.CHEW PO SCH (09:03)
[2020-09-20] MEDS: Furosemide 40 MG TABLET PO SCH (09:03)
[2020-09-20] MEDS: hydrOXYzine pamoate 25 MG CAPSULE PO PRN ×2 (09:03→20:50)
[2020-09-20] MEDS: Gabapentin 400 MG CAPSULE PO SCH ×3 (09:03→20:48)
[2020-09-20] MEDS: Insulin LISPRO 300 UNITS/3 ML VIAL SUBQ SCH ×4 (09:04→20:48)
[2020-09-20] MEDS: Budesonide/Formoterol 160/4.5 1 PUFF INH IH SCH ×2 (09:56→22:06)
[2020-09-20] MEDS: *HR* Rivaroxaban 10 MG TABLET PO SCH (16:33)
[2020-09-20] MEDS: Methyl Salicylate/Menthol 57 APPL/57 GM TUBE TP PRN (22:30)
[2020-09-21] MEDS: Levothyroxine 25 MCG TABLET PO SCH (05:26)
[2020-09-21] MEDS: Furosemide 40 MG TABLET PO SCH (07:31)
[2020-09-21] MEDS: carvediloL 25 MG TABLET PO SCH ×2 (07:31→16:39)
[2020-09-21] MEDS: DilTIAZem CD (24hr) 180 MG CAP.ER.24H PO SCH (07:31)
[2020-09-21] MEDS: Gabapentin 400 MG CAPSULE PO SCH ×3 (07:32→20:48)
[2020-09-21] MEDS: Aspirin 81 MG TAB.CHEW PO SCH (07:32)
[2020-09-21] MEDS: *HR* Metformin 500 MG TABLET PO SCH ×2 (07:32→16:39)
[2020-09-21] MEDS: Nystatin POWDER 30 GM BOTTLE TP SCH ×2 (07:33→20:47)
[2020-09-21] MEDS: Insulin LISPRO 300 UNITS/3 ML VIAL SUBQ SCH ×4 (08:07→20:25)
[2020-09-21] MEDS: Budesonide/Formoterol 160/4.5 1 PUFF INH IH SCH ×2 (10:40→21:36)
[2020-09-21] MEDS: *HR* Rivaroxaban 10 MG TABLET PO SCH (16:39)
[2020-09-21] MEDS: hydrOXYzine pamoate 25 MG CAPSULE PO PRN (20:48)
[2020-09-22] MEDS: Levothyroxine 25 MCG TABLET PO SCH (05:39)
[2020-09-22] MEDS: Furosemide 40 MG TABLET PO SCH (08:36)
[2020-09-22] MEDS: *HR* Metformin 500 MG TABLET PO SCH ×2 (08:36→16:54)
[2020-09-22] MEDS: DilTIAZem CD (24hr) 180 MG CAP.ER.24H PO SCH (08:36)
[2020-09-22] MEDS: Gabapentin 400 MG CAPSULE PO SCH ×3 (08:36→20:22)
[2020-09-22] MEDS: Aspirin 81 MG TAB.CHEW PO SCH (08:36)
[2020-09-22] MEDS: carvediloL 25 MG TABLET PO SCH ×2 (08:36→16:54)
[2020-09-22] MEDS: Nystatin POWDER 30 GM BOTTLE TP SCH ×2 (08:39→20:26)
[2020-09-22] MEDS: Insulin LISPRO 300 UNITS/3 ML VIAL SUBQ SCH ×4 (08:45→20:32)
[2020-09-22 09:48] LABS: Basophils % 0.3 %; Eosinophils # 0.2 K/mcL (0.0-0.6); Eosinophils % 2.8 %; Hematocrit 31.9 % (35.3-44.9); Hemoglobin 9.3 g/dL (11.5-15.4); Immature Granulocytes % 0.5 % (0-4); Lymphocytes % 12.8 %; Mean Corpuscular HGB Conc 29.2 g/dL (31.6-35.5); Mean Corpuscular Hemoglobin 24.3 pg (28.0-33.3); Mean Corpuscular Volume 83.5 fL (83.0-100.0); Mean Platelet Volume 10.4 fL (9.4-12.4); Monocytes # 0.6 K/mcL (0.0-1.3); Monocytes % 7.4 %; Platelet Count 171 K/mcL (140-400); Red Blood Count 3.82 M/mcL (3.82-4.97); Segmented Neutrophils % 76.2 %; White Blood Count 7.9 K/mcL (4.3-11.1)
[2020-09-22] MEDS: Budesonide/Formoterol 160/4.5 1 PUFF INH IH SCH ×2 (11:15→22:08)
[2020-09-22 11:58] LABS: BUN/Creatinine Ratio 21 (6-26); Blood Urea Nitrogen 19 mg/dL (8-23); Calcium 8.5 mg/dL (8.6-10.3); Carbon Dioxide 38 mEq/L (23-29); Chloride 94 mEq/L (98-107); Glucose 223 mg/dL (70-105); Osmolality,Calculated 297 (280-300); Potassium 4.5 mEq/L (3.5-5.1); Sodium 139 mEq/L (136-145); eGFR For African Americans > 60 (> 60); eGFR For Non-African Americans > 60 (> 60)
[2020-09-22] MEDS: hydrOXYzine pamoate 25 MG CAPSULE PO PRN (14:44)
[2020-09-22] MEDS: *HR* Rivaroxaban 10 MG TABLET PO SCH (16:53)
[2020-09-23] MEDS: Levothyroxine 25 MCG TABLET PO SCH (05:35)
[2020-09-23] MEDS: Insulin LISPRO 300 UNITS/3 ML VIAL SUBQ SCH ×4 (07:32→19:58)
[2020-09-23] MEDS: Gabapentin 400 MG CAPSULE PO SCH ×3 (09:01→21:00)
[2020-09-23] MEDS: DilTIAZem CD (24hr) 180 MG CAP.ER.24H PO SCH (09:01)
[2020-09-23] MEDS: Aspirin 81 MG TAB.CHEW PO SCH (09:02)
[2020-09-23] MEDS: *HR* Metformin 500 MG TABLET PO SCH ×2 (09:03→15:51)
[2020-09-23] MEDS: Furosemide 40 MG TABLET PO SCH (09:03)
[2020-09-23] MEDS: carvediloL 25 MG TABLET PO SCH ×2 (09:03→15:51)
[2020-09-23] MEDS: Nystatin POWDER 30 GM BOTTLE TP SCH ×2 (09:30→21:00)
[2020-09-23] MEDS: Budesonide/Formoterol 160/4.5 1 PUFF INH IH SCH ×2 (09:36→22:49)
[2020-09-23] MEDS: *HR* Rivaroxaban 10 MG TABLET PO SCH (15:51)
[2020-09-24] MEDS: Levothyroxine 25 MCG TABLET PO SCH (05:17)
[2020-09-24] MEDS: Budesonide/Formoterol 160/4.5 1 PUFF INH IH SCH ×2 (08:16→21:47)
[2020-09-24] MEDS: hydrOXYzine pamoate 25 MG CAPSULE PO PRN ×3 (08:27→22:01)
[2020-09-24] MEDS: Aspirin 81 MG TAB.CHEW PO SCH (08:27)
[2020-09-24] MEDS: Gabapentin 400 MG CAPSULE PO SCH ×3 (08:27→20:21)
[2020-09-24] MEDS: DilTIAZem CD (24hr) 180 MG CAP.ER.24H PO SCH (08:27)
[2020-09-24] MEDS: carvediloL 25 MG TABLET PO SCH ×2 (08:28→16:39)
[2020-09-24] MEDS: Furosemide 40 MG TABLET PO SCH (08:28)
[2020-09-24] MEDS: *HR* Metformin 500 MG TABLET PO SCH ×2 (08:28→16:39)
[2020-09-24] MEDS: Nystatin POWDER 30 GM BOTTLE TP SCH ×2 (08:31→23:34)
[2020-09-24] MEDS: Insulin LISPRO 300 UNITS/3 ML VIAL SUBQ SCH ×4 (08:31→20:21)
[2020-09-24] MEDS: Simethicone 80 MG TAB.CHEW PO PRN ×2 (12:12→18:08)
[2020-09-24] MEDS: *HR* Rivaroxaban 10 MG TABLET PO SCH (16:39)
[2020-09-25] MEDS: Levothyroxine 25 MCG TABLET PO SCH (05:34)
[2020-09-25] MEDS: Insulin LISPRO 300 UNITS/3 ML VIAL SUBQ SCH ×3 (08:43→16:30)
[2020-09-25] MEDS: carvediloL 25 MG TABLET PO SCH ×2 (08:44→20:36)
[2020-09-25] MEDS: DilTIAZem CD (24hr) 180 MG CAP.ER.24H PO SCH (08:44)
[2020-09-25] MEDS: hydrOXYzine pamoate 25 MG CAPSULE PO PRN (08:45)
[2020-09-25] MEDS: Gabapentin 400 MG CAPSULE PO SCH ×3 (08:46→20:36)
[2020-09-25] MEDS: Aspirin 81 MG TAB.CHEW PO SCH (08:46)
[2020-09-25] MEDS: *HR* Metformin 500 MG TABLET PO SCH ×2 (08:48→20:36)
[2020-09-25] MEDS: Nystatin POWDER 30 GM BOTTLE TP SCH ×2 (08:48→20:36)
[2020-09-25] MEDS: Furosemide 40 MG TABLET PO SCH (08:52)
[2020-09-25] MEDS: Budesonide/Formoterol 160/4.5 1 PUFF INH IH SCH ×2 (10:03→21:59)
[2020-09-25] MEDS: *HR* Rivaroxaban 10 MG TABLET PO SCH (20:35)
[2020-09-26] MEDS: Insulin LISPRO 300 UNITS/3 ML VIAL SUBQ SCH ×5 (00:28→21:27)
[2020-09-26] MEDS: Levothyroxine 25 MCG TABLET PO SCH (08:34)
[2020-09-26] MEDS: *HR* Metformin 500 MG TABLET PO SCH ×2 (08:34→16:44)
[2020-09-26] MEDS: Furosemide 40 MG TABLET PO SCH (08:34)
[2020-09-26] MEDS: DilTIAZem CD (24hr) 180 MG CAP.ER.24H PO SCH (08:34)
[2020-09-26] MEDS: carvediloL 25 MG TABLET PO SCH ×2 (08:34→16:44)
[2020-09-26] MEDS: Aspirin 81 MG TAB.CHEW PO SCH (08:35)
[2020-09-26] MEDS: Nystatin POWDER 30 GM BOTTLE TP SCH ×2 (08:35→22:24)
[2020-09-26] MEDS: Gabapentin 400 MG CAPSULE PO SCH ×3 (08:35→21:27)
[2020-09-26] MEDS: Budesonide/Formoterol 160/4.5 1 PUFF INH IH SCH ×2 (11:30→21:48)
[2020-09-26] MEDS: *HR* Rivaroxaban 10 MG TABLET PO SCH (16:44)
[2020-09-26] MEDS: hydrOXYzine pamoate 25 MG CAPSULE PO PRN (21:27)
[2020-09-26] MEDS: Methyl Salicylate/Menthol 57 APPL/57 GM TUBE TP PRN (23:55)
[2020-09-27] MEDS: Levothyroxine 25 MCG TABLET PO SCH (05:06)
[2020-09-27] MEDS: Insulin LISPRO 300 UNITS/3 ML VIAL SUBQ SCH ×4 (07:48→21:17)
[2020-09-27] MEDS: carvediloL 25 MG TABLET PO SCH ×2 (07:59→16:54)
[2020-09-27] MEDS: Aspirin 81 MG TAB.CHEW PO SCH (07:59)
[2020-09-27] MEDS: *HR* Metformin 500 MG TABLET PO SCH ×2 (07:59→16:54)
[2020-09-27] MEDS: DilTIAZem CD (24hr) 180 MG CAP.ER.24H PO SCH (08:00)
[2020-09-27] MEDS: Furosemide 40 MG TABLET PO SCH (08:00)
[2020-09-27] MEDS: Nystatin POWDER 30 GM BOTTLE TP SCH ×2 (08:01→21:17)
[2020-09-27] MEDS: Gabapentin 400 MG CAPSULE PO SCH ×3 (08:01→21:13)
[2020-09-27] MEDS: Budesonide/Formoterol 160/4.5 1 PUFF INH IH SCH ×2 (08:47→23:21)
[2020-09-27] MEDS: *HR* Rivaroxaban 10 MG TABLET PO SCH (16:54)
[2020-09-28] MEDS: Levothyroxine 25 MCG TABLET PO SCH (05:26)
[2020-09-28] MEDS: *HR* Metformin 500 MG TABLET PO SCH ×2 (07:33→16:19)
[2020-09-28] MEDS: carvediloL 25 MG TABLET PO SCH ×2 (07:33→16:19)
[2020-09-28] MEDS: Insulin LISPRO 300 UNITS/3 ML VIAL SUBQ SCH ×4 (07:34→19:58)
[2020-09-28] MEDS: Aspirin 81 MG TAB.CHEW PO SCH (09:20)
[2020-09-28] MEDS: DilTIAZem CD (24hr) 180 MG CAP.ER.24H PO SCH (09:20)
[2020-09-28] MEDS: Furosemide 40 MG TABLET PO SCH (09:21)
[2020-09-28] MEDS: Nystatin POWDER 30 GM BOTTLE TP SCH ×2 (09:21→21:51)
[2020-09-28] MEDS: Gabapentin 400 MG CAPSULE PO SCH ×3 (09:21→20:05)
[2020-09-28] MEDS: Budesonide/Formoterol 160/4.5 1 PUFF INH IH SCH ×2 (09:27→21:30)
[2020-09-28] MEDS: *HR* Rivaroxaban 10 MG TABLET PO SCH (16:19)
[2020-09-28] MEDS: Simethicone 80 MG TAB.CHEW PO PRN (18:23)
[2020-09-29] MEDS: Levothyroxine 25 MCG TABLET PO SCH (05:27)
[2020-09-29 06:52] VITALS: BP 128/76
[2020-09-29] MEDS: carvediloL 25 MG TABLET PO SCH (08:12)
[2020-09-29] MEDS: Furosemide 40 MG TABLET PO SCH (08:13)
[2020-09-29] MEDS: DilTIAZem CD (24hr) 180 MG CAP.ER.24H PO SCH (08:13)
[2020-09-29] MEDS: *HR* Metformin 500 MG TABLET PO SCH (08:13)
[2020-09-29] MEDS: Aspirin 81 MG TAB.CHEW PO SCH (08:13)
[2020-09-29] MEDS: Insulin LISPRO 300 UNITS/3 ML VIAL SUBQ SCH ×2 (08:13→12:11)
[2020-09-29] MEDS: Gabapentin 400 MG CAPSULE PO SCH (08:13)
[2020-09-29] MEDS: Nystatin POWDER 30 GM BOTTLE TP SCH (08:14)
[2020-09-29] MEDS: Budesonide/Formoterol 160/4.5 1 PUFF INH IH SCH (09:14)
== END 2020-09-29 16:17 | disposition home health service (06) | DRG 177 ==
LOC: INPPIK 13:04 → UNDODISIN 09-25 13:30
PROVIDERS: ADMIT Family Medicine; ATTEND Family Medicine

== ENCOUNTER 2020-11-19 18:51 | Inpatient (IN) ==
[2020-11-19 19:30] LABS: Bilirubin,Urine Negative (Negative); Blood,Urine Negative (Negative); Clarity,Urine Clear (Clear); Color,Urine Yellow (Yellow); Glucose,Urine (UA) Normal (Normal); Ketones,Urine Negative (Negative); Leukocyte Esterase,Urine Small (Negative); Nitrite,Urine Negative (Negative); PH,Urine 7.5 pH Units (5.0-8.0); Protein,Urine Negative (Neg-Trace)
[2020-11-19 19:35] LABS: Basophils % 0.4 %; Eosinophils # 0.1 K/mcL (0.0-0.6); Eosinophils % 2.4 %; Hematocrit 32.4 % (35.3-44.9); Hemoglobin 9.7 g/dL (11.5-15.4); Immature Granulocytes % 0.5 % (0-4); Mean Corpuscular HGB Conc 29.9 g/dL (31.6-35.5); Mean Corpuscular Hemoglobin 25.9 pg (28.0-33.3); Mean Corpuscular Volume 86.4 fL (83.0-100.0); Mean Platelet Volume 9.6 fL (9.4-12.4); Monocytes # 0.5 K/mcL (0.0-1.3); Monocytes % 8.9 %; Neutrophils # 3.8 K/mcL (1.6-8.9); Platelet Count 159 K/mcL (140-400); Red Blood Count 3.75 M/mcL (3.82-4.97); Red Cell Distribution Width 15.2 % (11.5-14.5); Segmented Neutrophils % 69.8 %; White Blood Count 5.5 K/mcL (4.3-11.1)
[2020-11-19 19:38] LABS: Hyaline Casts,Urine Few per lpf (None Seen); RBC,Urine 0-3 per hpf (0-3); Squamous Epithelial Cell,Urine Few per hpf (None-Few)
[2020-11-19 19:39] LABS: Bacteria,Urine Few per hpf (None-Few)
[2020-11-19 20:10] LABS: Alanine Aminotransferase 11 Units/L (7-52); Albumin 3.9 g/dL (3.5-5.7); Albumin/Globulin Ratio 1.3 (1.1-2.2); Alkaline Phosphatase 70 Units/L (34-104); Aspartate Amino Transferase 13 Units/L (13-39); BUN/Creatinine Ratio 15 (6-26); Bilirubin,Total 0.7 mg/dL (0.3-1.0); Blood Urea Nitrogen 12 mg/dL (8-23); Calcium 9.4 mg/dL (8.6-10.3); Chloride 94 mEq/L (98-107); Globulin 3.1 g/dL (2.4-3.5); Glucose 117 mg/dL (70-105); Osmolality,Calculated 293 (280-300); Sodium 141 mEq/L (136-145); eGFR For African Americans > 60 (> 60); eGFR For Non-African Americans > 60 (> 60)
[2020-11-19] MEDS ORDERED: Furosemide 40 MG/4 ML VIAL IVP ONE (20:10)
[2020-11-19] MEDS ORDERED: cefTRIAXone 1,000 MG in 0.9 % Sodium Chloride Mini Bag 100 ML IVPB ONE (20:11)
[2020-11-19] MEDS: *HR* Metoprolol 5 MG/5 ML VIAL IVP ONE ×2 (20:14→20:17)
[2020-11-19] MEDS ORDERED: DilTIAZem 125 MG in 0.9 % Sodium Chloride 50 MG/100 ML IV.SOLN IVC SCH (21:30)
[2020-11-20] MEDS ORDERED: Simethicone 80 MG TAB.CHEW PO PRN (00:19)
[2020-11-20] MEDS ORDERED: DilTIAZem 50 MG in 0.9 % Sodium Chloride 40 ML IVC SCH (00:19)
[2020-11-20] MEDS ORDERED: DilTIAZem 125 MG in 0.9 % Sodium Chloride 50 MG/100 ML IV.SOLN IVC SCH ×2 (00:19→00:45)
[2020-11-20] MEDS ORDERED: Ondansetron ODT 4 MG TAB.RAPDIS SL PRN (00:19)
[2020-11-20] MEDS ORDERED: Naloxone 0.4 MG/ML INJ IVP PRN (00:19)
[2020-11-20] MEDS: Levalbuterol 1 PUFF INHALER IH SCH ×5 (02:19→16:32)
[2020-11-20] MEDS: Ipratropium 1 PUFF INHALER IH SCH ×5 (02:19→16:32)
[2020-11-20] MEDS: Levothyroxine 25 MCG TABLET PO SCH (05:09)
[2020-11-20 07:22] LABS: Basophils % 0.4 %; Eosinophils # 0.2 K/mcL (0.0-0.6); Eosinophils % 3.7 %; Hematocrit 31.4 % (35.3-44.9); Hemoglobin 9.3 g/dL (11.5-15.4); Immature Granulocytes % 0.2 % (0-4); Lymphocytes # 1.2 K/mcL (0.6-4.6); Lymphocytes % 22.7 %; Mean Corpuscular HGB Conc 29.6 g/dL (31.6-35.5); Mean Corpuscular Hemoglobin 25.8 pg (28.0-33.3); Mean Corpuscular Volume 87.2 fL (83.0-100.0); Mean Platelet Volume 9.7 fL (9.4-12.4); Monocytes # 0.5 K/mcL (0.0-1.3); Monocytes % 10.1 %; Neutrophils # 3.3 K/mcL (1.6-8.9); Platelet Count 168 K/mcL (140-400); Red Cell Distribution Width 15.5 % (11.5-14.5); Segmented Neutrophils % 62.9 %; White Blood Count 5.2 K/mcL (4.3-11.1)
[2020-11-20 07:55] LABS: BUN/Creatinine Ratio 14 (6-26); Blood Urea Nitrogen 11 mg/dL (8-23); Calcium 9.1 mg/dL (8.6-10.3); Carbon Dioxide 44 mEq/L (23-29); Chloride 93 mEq/L (98-107); Glucose 132 mg/dL (70-105); Osmolality,Calculated 293 (280-300); Potassium 3.5 mEq/L (3.5-5.1); Sodium 141 mEq/L (136-145); eGFR For African Americans > 60 (> 60); eGFR For Non-African Americans > 60 (> 60)
[2020-11-20] MEDS ORDERED: Isovue-370 500 ML BOTTLE IVP ONE (08:00)
[2020-11-20] MEDS ORDERED: *HR* Metformin 500 MG TABLET PO SCH (08:00)
[2020-11-20 08:20] LABS: Carbon Dioxide 41 mEq/L (23-29)
[2020-11-20] MEDS: Gabapentin 400 MG CAPSULE PO SCH ×3 (08:50→20:27)
[2020-11-20] MEDS: carvediloL 25 MG TABLET PO SCH ×2 (08:51→17:44)
[2020-11-20] MEDS: Aspirin 81 MG TAB.CHEW PO SCH (08:51)
[2020-11-20] MEDS: (Omega-3/Dha/Epa/Fish Oil) PO SCH (08:52)
[2020-11-20] MEDS ORDERED: DilTIAZem CD (24hr) 180 MG CAP.ER.24H PO SCH (09:00)
[2020-11-20] MEDS ORDERED: Furosemide 40 MG/4 ML VIAL IVP SCH (09:00)
[2020-11-20] MEDS ORDERED: Furosemide 40 MG TABLET PO SCH (09:00)
[2020-11-20] MEDS: Budesonide/Formoterol 160/4.5 1 PUFF INH IH SCH ×2 (09:07→20:12)
[2020-11-20] MEDS: cefTRIAXone 2,000 MG in 0.9 % Sodium Chloride Mini Bag 100 ML IVPB SCH (10:49)
[2020-11-20] MEDS: Insulin LISPRO 300 UNITS/3 ML VIAL SUBQ SCH ×3 (12:00→23:30)
[2020-11-20] MEDS: DilTIAZem CD (24hr) 180 MG CAP.ER.24H PO SCH (16:06)
[2020-11-20] MEDS: *HR* Rivaroxaban 10 MG TABLET PO SCH (17:43)
[2020-11-20] MEDS: hydrOXYzine pamoate 25 MG CAPSULE PO PRN (23:48)
[2020-11-21] MEDS: Levothyroxine 25 MCG TABLET PO SCH (06:48)
[2020-11-21 08:11] LABS: Basophils % 0.7 %; Eosinophils # 0.4 K/mcL (0.0-0.6); Eosinophils % 6.5 %; Hemoglobin 9.7 g/dL (11.5-15.4); Immature Granulocytes % 0.5 % (0-4); Lymphocytes # 1.7 K/mcL (0.6-4.6); Lymphocytes % 31.1 %; Mean Corpuscular HGB Conc 29.4 g/dL (31.6-35.5); Mean Corpuscular Hemoglobin 25.7 pg (28.0-33.3); Mean Corpuscular Volume 87.5 fL (83.0-100.0); Mean Platelet Volume 10.2 fL (9.4-12.4); Monocytes # 0.5 K/mcL (0.0-1.3); Monocytes % 9.3 %; Neutrophils # 2.9 K/mcL (1.6-8.9); Platelet Count 193 K/mcL (140-400); Red Blood Count 3.77 M/mcL (3.82-4.97); Red Cell Distribution Width 15.7 % (11.5-14.5); Segmented Neutrophils % 51.9 %; White Blood Count 5.6 K/mcL (4.3-11.1)
[2020-11-21 08:39] LABS: BUN/Creatinine Ratio 13 (6-26); Blood Urea Nitrogen 11 mg/dL (8-23); Calcium 9.3 mg/dL (8.6-10.3); Carbon Dioxide 41 mEq/L (23-29); Chloride 94 mEq/L (98-107); Glucose 134 mg/dL (70-105); Osmolality,Calculated 293 (280-300); Potassium 3.6 mEq/L (3.5-5.1); Sodium 141 mEq/L (136-145); eGFR For African Americans > 60 (> 60); eGFR For Non-African Americans > 60 (> 60)
[2020-11-21] MEDS: Gabapentin 400 MG CAPSULE PO SCH ×3 (09:04→22:06)
[2020-11-21] MEDS: DilTIAZem CD (24hr) 180 MG CAP.ER.24H PO SCH (09:04)
[2020-11-21] MEDS: cefTRIAXone 2,000 MG in 0.9 % Sodium Chloride Mini Bag 100 ML IVPB SCH (09:04)
[2020-11-21] MEDS: carvediloL 25 MG TABLET PO SCH ×2 (09:04→16:05)
[2020-11-21] MEDS: Aspirin 81 MG TAB.CHEW PO SCH (09:04)
[2020-11-21] MEDS: (Omega-3/Dha/Epa/Fish Oil) PO SCH (09:05)
[2020-11-21] MEDS: Insulin LISPRO 300 UNITS/3 ML VIAL SUBQ SCH ×4 (09:36→22:06)
[2020-11-21] MEDS: Furosemide 20 MG/2 ML VIAL IVP SCH ×2 (09:43→17:09)
[2020-11-21] MEDS: Budesonide/Formoterol 160/4.5 1 PUFF INH IH SCH ×2 (10:13→21:05)
[2020-11-21] MEDS: Levalbuterol 1 PUFF INHALER IH PRN (10:14)
[2020-11-21] MEDS: Ipratropium 1 PUFF INHALER IH PRN (10:15)
[2020-11-21] MEDS: Loratadine 10 MG TABLET PO SCH (11:38)
[2020-11-21 15:15] LABS: Adenovirus Not Detected (Not Detect); Bordetella Pertussis Not Detected (Not Detect); Chlamydophila pneumoniae Not Detected (Not Detect); Coronavirus 229E Not Detected (Not Detect); Coronavirus HKU1 Not Detected (Not Detect); Coronavirus NL63 Not Detected (Not Detect); Coronavirus OC43 Not Detected (Not Detect); Human Metapneumovirus Not Detected (Not Detect); Human Rhinovirus/Enterovirus Not Detected (Not Detect); Influenza A Subtype 2009 H1 Not Detected (Not Detect); Influenza B Not Detected (Not Detect); Mycoplasma pneumoniae Not Detected (Not Detect); Parainfluenza Virus 1 Not Detected (Not Detect); Parainfluenza Virus 2 Not Detected (Not Detect); Parainfluenza Virus 3 Not Detected (Not Detect); Parainfluenza Virus 4 Not Detected (Not Detect); Respiratory Syncytial Virus Not Detected (Not Detect); SARS-CoV-2 Not Detected (Not Detect)
[2020-11-21] MEDS: *HR* Rivaroxaban 10 MG TABLET PO SCH (16:05)
[2020-11-21] MEDS: hydrOXYzine pamoate 25 MG CAPSULE PO PRN (22:11)
[2020-11-22] MEDS: Levothyroxine 25 MCG TABLET PO SCH (06:46)
[2020-11-22 08:29] LABS: Basophils % 0.6 %; Eosinophils # 0.4 K/mcL (0.0-0.6); Eosinophils % 6.5 %; Hematocrit 31.5 % (35.3-44.9); Hemoglobin 9.2 g/dL (11.5-15.4); Immature Granulocytes % 0.5 % (0-4); Lymphocytes # 1.8 K/mcL (0.6-4.6); Lymphocytes % 28.5 %; Mean Corpuscular HGB Conc 29.2 g/dL (31.6-35.5); Mean Corpuscular Hemoglobin 25.6 pg (28.0-33.3); Mean Corpuscular Volume 87.7 fL (83.0-100.0); Mean Platelet Volume 10.4 fL (9.4-12.4); Monocytes # 0.7 K/mcL (0.0-1.3); Monocytes % 10.5 %; Neutrophils # 3.4 K/mcL (1.6-8.9); Platelet Count 193 K/mcL (140-400); Red Blood Count 3.59 M/mcL (3.82-4.97); Red Cell Distribution Width 15.7 % (11.5-14.5); Segmented Neutrophils % 53.4 %; White Blood Count 6.3 K/mcL (4.3-11.1)
[2020-11-22 08:33] LABS: Calcium 9.1 mg/dL (8.6-10.3); Potassium 3.8 mEq/L (3.5-5.1)
[2020-11-22] MEDS: Gabapentin 400 MG CAPSULE PO SCH ×3 (08:48→21:01)
[2020-11-22] MEDS: Aspirin 81 MG TAB.CHEW PO SCH (08:48)
[2020-11-22] MEDS: Furosemide 20 MG/2 ML VIAL IVP SCH (08:49)
[2020-11-22] MEDS: Loratadine 10 MG TABLET PO SCH (08:49)
[2020-11-22] MEDS: DilTIAZem CD (24hr) 180 MG CAP.ER.24H PO SCH (08:49)
[2020-11-22] MEDS: Insulin LISPRO 300 UNITS/3 ML VIAL SUBQ SCH ×4 (08:50→21:00)
[2020-11-22] MEDS: carvediloL 25 MG TABLET PO SCH (08:50)
[2020-11-22] MEDS: (Omega-3/Dha/Epa/Fish Oil) PO SCH (08:50)
[2020-11-22] MEDS: cefTRIAXone 2,000 MG in 0.9 % Sodium Chloride Mini Bag 100 ML IVPB SCH (08:50)
[2020-11-22] MEDS: Budesonide/Formoterol 160/4.5 1 PUFF INH IH SCH ×2 (10:19→22:05)
[2020-11-22] MEDS: Ipratropium 1 PUFF INHALER IH PRN ×2 (10:20→22:06)
[2020-11-22] MEDS: Levalbuterol 1 PUFF INHALER IH PRN ×2 (10:20→22:05)
[2020-11-22] MEDS ORDERED: 0.9 % Sodium Chloride 500 ML IVC ONE (13:18)
[2020-11-22] MEDS: Nitrofurantoin (BID) 100 MG CAPSULE PO SCH (17:42)
[2020-11-22] MEDS: *HR* Rivaroxaban 10 MG TABLET PO SCH (17:42)
[2020-11-23] MEDS: hydrOXYzine pamoate 25 MG CAPSULE PO PRN (03:21)
[2020-11-23 04:36] LABS: Basophils % 0.4 %; Eosinophils # 0.3 K/mcL (0.0-0.6); Eosinophils % 4.6 %; Hematocrit 32.2 % (35.3-44.9); Hemoglobin 9.5 g/dL (11.5-15.4); Immature Granulocytes % 0.4 % (0-4); Lymphocytes # 1.7 K/mcL (0.6-4.6); Lymphocytes % 22.5 %; Mean Corpuscular HGB Conc 29.5 g/dL (31.6-35.5); Mean Corpuscular Hemoglobin 25.9 pg (28.0-33.3); Mean Corpuscular Volume 87.7 fL (83.0-100.0); Mean Platelet Volume 9.9 fL (9.4-12.4); Monocytes # 0.6 K/mcL (0.0-1.3); Monocytes % 8.6 %; Neutrophils # 4.6 K/mcL (1.6-8.9); Platelet Count 194 K/mcL (140-400); Red Blood Count 3.67 M/mcL (3.82-4.97); Red Cell Distribution Width 15.6 % (11.5-14.5); Segmented Neutrophils % 63.5 %; White Blood Count 7.3 K/mcL (4.3-11.1)
[2020-11-23] MEDS: Levothyroxine 25 MCG TABLET PO SCH (05:51)
[2020-11-23 07:55] LABS: BUN/Creatinine Ratio 26 (6-26); Blood Urea Nitrogen 28 mg/dL (8-23); Calcium 8.9 mg/dL (8.6-10.3); Carbon Dioxide 40 mEq/L (23-29); Chloride 96 mEq/L (98-107); Glucose 172 mg/dL (70-105); Osmolality,Calculated 300 (280-300); Potassium 4.4 mEq/L (3.5-5.1); Sodium 140 mEq/L (136-145); eGFR For African Americans > 60 (> 60); eGFR For Non-African Americans 50 (> 60)
[2020-11-23] MEDS: Budesonide/Formoterol 160/4.5 1 PUFF INH IH SCH (08:12)
[2020-11-23] MEDS: Ipratropium 1 PUFF INHALER IH PRN (08:12)
[2020-11-23] MEDS: Levalbuterol 1 PUFF INHALER IH PRN (08:13)
[2020-11-23] MEDS ORDERED: Furosemide 40 MG TABLET PO SCH (09:00)
[2020-11-23] MEDS ORDERED: DilTIAZem CD (24hr) 240 MG CAP.ER.24H PO SCH (09:34)
[2020-11-23] MEDS: Nitrofurantoin (BID) 100 MG CAPSULE PO SCH ×2 (10:24→16:58)
[2020-11-23] MEDS: Loratadine 10 MG TABLET PO SCH (10:24)
[2020-11-23] MEDS: Insulin LISPRO 300 UNITS/3 ML VIAL SUBQ SCH ×4 (10:24→19:41)
[2020-11-23] MEDS: Aspirin 81 MG TAB.CHEW PO SCH (10:24)
[2020-11-23] MEDS: Gabapentin 400 MG CAPSULE PO SCH ×3 (10:25→19:40)
[2020-11-23] MEDS: (Omega-3/Dha/Epa/Fish Oil) PO SCH (10:25)
[2020-11-23] MEDS: acetaZOLAMIDE 250 MG TABLET PO SCH ×2 (10:29→19:39)
[2020-11-23] MEDS: Nystatin POWDER 30 GM BOTTLE TP SCH ×3 (10:42→19:40)
[2020-11-23] MEDS: carvediloL 25 MG TABLET PO SCH (16:56)
[2020-11-23] MEDS: *HR* Rivaroxaban 10 MG TABLET PO SCH (16:57)
[2020-11-23 18:40] VITALS: BP 130/75
== END 2020-11-23 19:52 | disposition other institution (70) | DRG 292 ==
LOC: EMEROOPIK 18:51 → INPPIK 18:51
PROVIDERS: ADMIT Family Medicine; ATTEND Family Medicine

== ENCOUNTER 2020-11-23 18:36 | Inpatient (IN) ==
[2020-11-23] MEDS: Levalbuterol 1 PUFF INHALER IH SCH ×2 (22:36→23:42)
[2020-11-23] MEDS: Budesonide/Formoterol 160/4.5 1 PUFF INH IH SCH (22:37)
[2020-11-23] MEDS: Ipratropium 1 PUFF INHALER IH SCH ×2 (22:37→23:42)
[2020-11-23] MEDS: carvediloL 6.25 MG TABLET PO SCH (23:42)
[2020-11-23] MEDS: *HR* Rivaroxaban 10 MG TABLET PO SCH (23:58)
[2020-11-23] MEDS: Nitrofurantoin (BID) 100 MG CAPSULE PO SCH (23:58)
[2020-11-23] MEDS: *HR* Metformin 500 MG TABLET PO SCH (23:58)
[2020-11-24] MEDS: acetaZOLAMIDE 250 MG TABLET PO SCH ×3 (00:03→21:36)
[2020-11-24] MEDS: Gabapentin 400 MG CAPSULE PO SCH ×4 (00:03→21:36)
[2020-11-24] MEDS: Nystatin POWDER 30 GM BOTTLE TP SCH ×4 (00:04→21:10)
[2020-11-24] MEDS: Levalbuterol 1 PUFF INHALER IH SCH ×2 (00:50→04:14)
[2020-11-24] MEDS: Ipratropium 1 PUFF INHALER IH SCH ×2 (00:50→04:14)
[2020-11-24] MEDS: Levothyroxine 25 MCG TABLET PO SCH (06:51)
[2020-11-24 07:39] LABS: Basophils % 0.7 %; Eosinophils # 0.3 K/mcL (0.0-0.6); Eosinophils % 4.8 %; Hematocrit 31.8 % (35.3-44.9); Hemoglobin 9.1 g/dL (11.5-15.4); Immature Granulocytes % 0.5 % (0-4); Lymphocytes # 1.2 K/mcL (0.6-4.6); Mean Corpuscular HGB Conc 28.6 g/dL (31.6-35.5); Mean Corpuscular Hemoglobin 25.7 pg (28.0-33.3); Mean Corpuscular Volume 89.8 fL (83.0-100.0); Mean Platelet Volume 10.6 fL (9.4-12.4); Monocytes # 0.6 K/mcL (0.0-1.3); Monocytes % 9.4 %; Neutrophils # 3.9 K/mcL (1.6-8.9); Platelet Count 192 K/mcL (140-400); Red Blood Count 3.54 M/mcL (3.82-4.97); Red Cell Distribution Width 15.3 % (11.5-14.5); Segmented Neutrophils % 64.6 %
[2020-11-24 08:00] LABS: BUN/Creatinine Ratio 20 (6-26); Blood Urea Nitrogen 19 mg/dL (8-23); Carbon Dioxide 34 mEq/L (23-29); Chloride 101 mEq/L (98-107); Glucose 150 mg/dL (70-105); Osmolality,Calculated 295 (280-300); Potassium 4.2 mEq/L (3.5-5.1); Sodium 140 mEq/L (136-145); eGFR For African Americans > 60 (> 60); eGFR For Non-African Americans 57 (> 60)
[2020-11-24 08:48] LABS: Anisocytosis 1+ (Not Present); Platelet Estimate Normal (Normal)
[2020-11-24] MEDS ORDERED: Furosemide 40 MG TABLET PO SCH (09:00)
[2020-11-24] MEDS: carvediloL 6.25 MG TABLET PO SCH (09:06)
[2020-11-24] MEDS: Nitrofurantoin (BID) 100 MG CAPSULE PO SCH ×2 (09:06→16:40)
[2020-11-24] MEDS: *HR* Metformin 500 MG TABLET PO SCH ×2 (09:06→16:40)
[2020-11-24] MEDS: Aspirin 81 MG TAB.CHEW PO SCH (09:06)
[2020-11-24] MEDS: DilTIAZem CD (24hr) 240 MG CAP.ER.24H PO SCH (09:06)
[2020-11-24] MEDS: Loratadine 10 MG TABLET PO SCH (09:06)
[2020-11-24] MEDS: Budesonide/Formoterol 160/4.5 1 PUFF INH IH SCH ×2 (09:15→21:55)
[2020-11-24] MEDS: Levalbuterol 1 PUFF INHALER IH PRN ×2 (09:15→21:54)
[2020-11-24] MEDS ORDERED: D5% in Water 1,000 ML IVC PRN (12:59)
[2020-11-24] MEDS ORDERED: Dextrose Gel 15 GM/37.5 ML TUBE PO PRN ×2 (12:59)
[2020-11-24] MEDS ORDERED: *HR* Dextrose 50 % in Water (Vial) 50 ML VIAL IVP PRN (12:59)
[2020-11-24] MEDS: *HR* Rivaroxaban 10 MG TABLET PO SCH (16:40)
[2020-11-24] MEDS: Insulin LISPRO 300 UNITS/3 ML VIAL SUBQ SCH ×2 (16:47→21:10)
[2020-11-24] MEDS: Ipratropium 1 PUFF INHALER IH PRN (21:55)
[2020-11-25] MEDS: Levothyroxine 25 MCG TABLET PO SCH (05:30)
[2020-11-25] MEDS ORDERED: carvediloL 6.25 MG TABLET PO SCH (08:00)
[2020-11-25] MEDS: *HR* Metformin 500 MG TABLET PO SCH ×2 (09:31→17:40)
[2020-11-25] MEDS: Aspirin 81 MG TAB.CHEW PO SCH (09:31)
[2020-11-25] MEDS: Gabapentin 400 MG CAPSULE PO SCH ×3 (09:31→20:25)
[2020-11-25] MEDS: Nitrofurantoin (BID) 100 MG CAPSULE PO SCH ×2 (09:31→17:40)
[2020-11-25] MEDS: DilTIAZem CD (24hr) 240 MG CAP.ER.24H PO SCH (09:32)
[2020-11-25] MEDS: Loratadine 10 MG TABLET PO SCH (09:32)
[2020-11-25] MEDS: Insulin LISPRO 300 UNITS/3 ML VIAL SUBQ SCH ×4 (09:32→20:25)
[2020-11-25] MEDS: Nystatin POWDER 30 GM BOTTLE TP SCH ×3 (09:35→20:27)
[2020-11-25] MEDS: Budesonide/Formoterol 160/4.5 1 PUFF INH IH SCH ×2 (10:05→20:38)
[2020-11-25] MEDS: *HR* Rivaroxaban 10 MG TABLET PO SCH (17:40)
[2020-11-25] MEDS: Ipratropium 1 PUFF INHALER IH PRN (20:40)
[2020-11-25] MEDS: Levalbuterol 1 PUFF INHALER IH PRN (20:40)
[2020-11-26] MEDS: Levothyroxine 25 MCG TABLET PO SCH (05:27)
[2020-11-26] MEDS: DilTIAZem CD (24hr) 240 MG CAP.ER.24H PO SCH (08:04)
[2020-11-26] MEDS: Aspirin 81 MG TAB.CHEW PO SCH (08:04)
[2020-11-26] MEDS: Loratadine 10 MG TABLET PO SCH (08:05)
[2020-11-26] MEDS: Nitrofurantoin (BID) 100 MG CAPSULE PO SCH ×2 (08:05→17:08)
[2020-11-26] MEDS: *HR* Metformin 500 MG TABLET PO SCH ×2 (08:05→17:08)
[2020-11-26] MEDS: Gabapentin 400 MG CAPSULE PO SCH ×3 (08:05→20:49)
[2020-11-26] MEDS: Insulin LISPRO 300 UNITS/3 ML VIAL SUBQ SCH ×4 (08:05→20:50)
[2020-11-26] MEDS: Furosemide 40 MG TABLET PO SCH (08:05)
[2020-11-26] MEDS: Nystatin POWDER 30 GM BOTTLE TP SCH ×3 (11:15→20:50)
[2020-11-26] MEDS: Budesonide/Formoterol 160/4.5 1 PUFF INH IH SCH ×2 (11:21→21:39)
[2020-11-26] MEDS: Levalbuterol 1 PUFF INHALER IH PRN (11:22)
[2020-11-26] MEDS: *HR* Rivaroxaban 10 MG TABLET PO SCH (17:08)
[2020-11-27 06:51] LABS: Hemoglobin 9.5 g/dL (11.5-15.4); Mean Corpuscular HGB Conc 29.7 g/dL (31.6-35.5); Mean Corpuscular Hemoglobin 25.4 pg (28.0-33.3); Mean Corpuscular Volume 85.6 fL (83.0-100.0); Mean Platelet Volume 10.4 fL (9.4-12.4); Platelet Count 178 K/mcL (140-400); Red Blood Count 3.74 M/mcL (3.82-4.97); Red Cell Distribution Width 15.1 % (11.5-14.5); White Blood Count 6.1 K/mcL (4.3-11.1)
[2020-11-27] MEDS: Levothyroxine 25 MCG TABLET PO SCH (06:54)
[2020-11-27 07:19] LABS: BUN/Creatinine Ratio 27 (6-26); Blood Urea Nitrogen 20 mg/dL (8-23); Calcium 9.1 mg/dL (8.6-10.3); Carbon Dioxide 37 mEq/L (23-29); Chloride 99 mEq/L (98-107); Glucose 134 mg/dL (70-105); Osmolality,Calculated 297 (280-300); Potassium 4.1 mEq/L (3.5-5.1); Sodium 141 mEq/L (136-145); eGFR For African Americans > 60 (> 60); eGFR For Non-African Americans > 60 (> 60)
[2020-11-27] MEDS: Insulin LISPRO 300 UNITS/3 ML VIAL SUBQ SCH ×4 (07:31→19:53)
[2020-11-27] MEDS: Gabapentin 400 MG CAPSULE PO SCH ×3 (08:26→19:52)
[2020-11-27] MEDS: Nystatin POWDER 30 GM BOTTLE TP SCH ×3 (08:27→19:53)
[2020-11-27] MEDS: Furosemide 40 MG TABLET PO SCH (08:27)
[2020-11-27] MEDS: *HR* Metformin 500 MG TABLET PO SCH ×2 (08:27→17:37)
[2020-11-27] MEDS: Loratadine 10 MG TABLET PO SCH (08:27)
[2020-11-27] MEDS: Nitrofurantoin (BID) 100 MG CAPSULE PO SCH ×2 (08:27→17:37)
[2020-11-27] MEDS: Aspirin 81 MG TAB.CHEW PO SCH (08:27)
[2020-11-27] MEDS ORDERED: DilTIAZem CD (24hr) 180 MG CAP.ER.24H PO SCH (09:00)
[2020-11-27] MEDS: Budesonide/Formoterol 160/4.5 1 PUFF INH IH SCH ×2 (09:35→22:24)
[2020-11-27] MEDS: *HR* Rivaroxaban 10 MG TABLET PO SCH (17:37)
[2020-11-27] MEDS ORDERED: cloNIDine HCL 0.1 MG TABLET PO PRN (19:06)
[2020-11-27] MEDS ORDERED: *HR* Metoprolol 5 MG/5 ML VIAL IVP PRN (21:46)
[2020-11-27] MEDS ORDERED: Acetaminophen 325 MG TABLET PO PRN (21:49)
[2020-11-27] MEDS: Levalbuterol 1 PUFF INHALER IH PRN (22:24)
[2020-11-28] MEDS: Levothyroxine 25 MCG TABLET PO SCH (06:51)
[2020-11-28] MEDS: Insulin LISPRO 300 UNITS/3 ML VIAL SUBQ SCH ×4 (07:45→20:48)
[2020-11-28] MEDS: Budesonide/Formoterol 160/4.5 1 PUFF INH IH SCH ×2 (08:41→21:21)
[2020-11-28] MEDS: Levalbuterol 1 PUFF INHALER IH PRN ×2 (08:41→21:21)
[2020-11-28] MEDS: *HR* Metformin 500 MG TABLET PO SCH ×2 (08:57→16:42)
[2020-11-28] MEDS: Furosemide 40 MG TABLET PO SCH (08:57)
[2020-11-28] MEDS: DilTIAZem CD (24hr) 240 MG CAP.ER.24H PO SCH (08:57)
[2020-11-28] MEDS: Aspirin 81 MG TAB.CHEW PO SCH (08:57)
[2020-11-28] MEDS: Gabapentin 400 MG CAPSULE PO SCH ×3 (08:59→21:09)
[2020-11-28] MEDS: Loratadine 10 MG TABLET PO SCH (08:59)
[2020-11-28] MEDS: Nystatin POWDER 30 GM BOTTLE TP SCH ×3 (09:00→21:09)
[2020-11-28] MEDS: carvediloL 6.25 MG TABLET PO SCH ×2 (09:08→16:43)
[2020-11-28] MEDS: *HR* Rivaroxaban 10 MG TABLET PO SCH (16:43)
[2020-11-28] MEDS: hydrOXYzine pamoate 25 MG CAPSULE PO PRN (22:54)
[2020-11-29] MEDS: Levothyroxine 25 MCG TABLET PO SCH (06:34)
[2020-11-29] MEDS: Insulin LISPRO 300 UNITS/3 ML VIAL SUBQ SCH ×4 (07:17→20:36)
[2020-11-29] MEDS: DilTIAZem CD (24hr) 240 MG CAP.ER.24H PO SCH (07:53)
[2020-11-29] MEDS: Loratadine 10 MG TABLET PO SCH (07:53)
[2020-11-29] MEDS: Aspirin 81 MG TAB.CHEW PO SCH (07:53)
[2020-11-29] MEDS: carvediloL 6.25 MG TABLET PO SCH ×2 (07:54→16:00)
[2020-11-29] MEDS: *HR* Metformin 500 MG TABLET PO SCH ×2 (07:54→15:59)
[2020-11-29] MEDS: Gabapentin 400 MG CAPSULE PO SCH ×3 (07:54→21:01)
[2020-11-29] MEDS: Nystatin POWDER 30 GM BOTTLE TP SCH ×3 (07:54→21:01)
[2020-11-29] MEDS: Furosemide 40 MG TABLET PO SCH (07:54)
[2020-11-29] MEDS: Budesonide/Formoterol 160/4.5 1 PUFF INH IH SCH ×2 (09:46→20:13)
[2020-11-29] MEDS: Levalbuterol 1 PUFF INHALER IH PRN (09:47)
[2020-11-29] MEDS: *HR* Rivaroxaban 10 MG TABLET PO SCH (15:59)
[2020-11-30] MEDS: hydrOXYzine pamoate 25 MG CAPSULE PO PRN ×2 (03:20→23:55)
[2020-11-30] MEDS: Levothyroxine 25 MCG TABLET PO SCH (06:17)
[2020-11-30] MEDS: Insulin LISPRO 300 UNITS/3 ML VIAL SUBQ SCH ×4 (07:24→20:06)
[2020-11-30] MEDS: carvediloL 6.25 MG TABLET PO SCH ×2 (07:37→16:52)
[2020-11-30] MEDS: Aspirin 81 MG TAB.CHEW PO SCH (07:37)
[2020-11-30] MEDS: *HR* Metformin 500 MG TABLET PO SCH ×2 (07:37→16:52)
[2020-11-30] MEDS: Gabapentin 400 MG CAPSULE PO SCH ×3 (07:37→19:54)
[2020-11-30] MEDS: Nystatin POWDER 30 GM BOTTLE TP SCH ×3 (07:38→20:06)
[2020-11-30] MEDS: Furosemide 40 MG TABLET PO SCH (07:38)
[2020-11-30] MEDS: Loratadine 10 MG TABLET PO SCH (07:38)
[2020-11-30] MEDS: DilTIAZem CD (24hr) 240 MG CAP.ER.24H PO SCH (07:38)
[2020-11-30 08:54] LABS: Basophils % 0.3 %; Eosinophils # 0.3 K/mcL (0.0-0.6); Eosinophils % 4.5 %; Hematocrit 31.7 % (35.3-44.9); Hemoglobin 9.4 g/dL (11.5-15.4); Immature Granulocytes % 0.3 % (0-4); Lymphocytes # 1.5 K/mcL (0.6-4.6); Lymphocytes % 26.4 %; Mean Corpuscular HGB Conc 29.7 g/dL (31.6-35.5); Mean Corpuscular Hemoglobin 25.7 pg (28.0-33.3); Mean Corpuscular Volume 86.6 fL (83.0-100.0); Mean Platelet Volume 9.8 fL (9.4-12.4); Monocytes # 0.6 K/mcL (0.0-1.3); Neutrophils # 3.3 K/mcL (1.6-8.9); Platelet Count 192 K/mcL (140-400); Red Blood Count 3.66 M/mcL (3.82-4.97); Red Cell Distribution Width 14.8 % (11.5-14.5); Segmented Neutrophils % 57.5 %; White Blood Count 5.8 K/mcL (4.3-11.1)
[2020-11-30] MEDS: Budesonide/Formoterol 160/4.5 1 PUFF INH IH SCH ×2 (09:53→21:13)
[2020-11-30] MEDS: Levalbuterol 1 PUFF INHALER IH PRN (09:54)
[2020-11-30 11:26] LABS: BUN/Creatinine Ratio 28 (6-26); Blood Urea Nitrogen 26 mg/dL (8-23); Calcium 8.8 mg/dL (8.6-10.3); Carbon Dioxide 42 mEq/L (23-29); Chloride 96 mEq/L (98-107); Glucose 180 mg/dL (70-105); Osmolality,Calculated 299 (280-300); Potassium 4.3 mEq/L (3.5-5.1); Sodium 140 mEq/L (136-145); eGFR For African Americans > 60 (> 60); eGFR For Non-African Americans > 60 (> 60)
[2020-11-30] MEDS: acetaZOLAMIDE 250 MG TABLET PO SCH ×2 (12:38→19:56)
[2020-11-30] MEDS: *HR* Rivaroxaban 10 MG TABLET PO SCH (16:52)
[2020-11-30] MEDS: Simethicone 80 MG TAB.CHEW PO PRN (23:38)
[2020-12-01] MEDS: Levothyroxine 25 MCG TABLET PO SCH (05:12)
[2020-12-01] MEDS: DilTIAZem CD (24hr) 240 MG CAP.ER.24H PO SCH (08:21)
[2020-12-01] MEDS: Aspirin 81 MG TAB.CHEW PO SCH (08:21)
[2020-12-01] MEDS: acetaZOLAMIDE 250 MG TABLET PO SCH ×2 (08:22→20:00)
[2020-12-01] MEDS: *HR* Metformin 500 MG TABLET PO SCH ×2 (08:22→16:51)
[2020-12-01] MEDS: Nystatin POWDER 30 GM BOTTLE TP SCH ×3 (08:23→20:00)
[2020-12-01] MEDS: Gabapentin 400 MG CAPSULE PO SCH ×3 (08:23→19:59)
[2020-12-01] MEDS: Loratadine 10 MG TABLET PO SCH (08:23)
[2020-12-01] MEDS: Insulin LISPRO 300 UNITS/3 ML VIAL SUBQ SCH ×4 (08:23→20:00)
[2020-12-01] MEDS: Furosemide 40 MG TABLET PO SCH (08:23)
[2020-12-01] MEDS: carvediloL 6.25 MG TABLET PO SCH ×2 (08:23→16:51)
[2020-12-01] MEDS: Budesonide/Formoterol 160/4.5 1 PUFF INH IH SCH ×2 (09:35→22:01)
[2020-12-01] MEDS: Levalbuterol 1 PUFF INHALER IH PRN (09:36)
[2020-12-01] MEDS: *HR* Rivaroxaban 10 MG TABLET PO SCH (16:51)
[2020-12-02] MEDS: hydrOXYzine pamoate 25 MG CAPSULE PO PRN (00:37)
[2020-12-02] MEDS: Levothyroxine 25 MCG TABLET PO SCH (05:57)
[2020-12-02 06:02] LABS: Hematocrit 33.3 % (35.3-44.9); Hemoglobin 9.7 g/dL (11.5-15.4); Mean Corpuscular HGB Conc 29.1 g/dL (31.6-35.5); Mean Corpuscular Hemoglobin 25.5 pg (28.0-33.3); Mean Corpuscular Volume 87.4 fL (83.0-100.0); Mean Platelet Volume 10.9 fL (9.4-12.4); Platelet Count 198 K/mcL (140-400); Red Blood Count 3.81 M/mcL (3.82-4.97); Red Cell Distribution Width 14.8 % (11.5-14.5); White Blood Count 6.6 K/mcL (4.3-11.1)
[2020-12-02 06:31] LABS: BUN/Creatinine Ratio 28 (6-26); Blood Urea Nitrogen 25 mg/dL (8-23); Calcium 9.3 mg/dL (8.6-10.3); Carbon Dioxide 33 mEq/L (23-29); Chloride 99 mEq/L (98-107); Glucose 130 mg/dL (70-105); Osmolality,Calculated 296 (280-300); Potassium 4.1 mEq/L (3.5-5.1); Sodium 140 mEq/L (136-145); eGFR For African Americans > 60 (> 60); eGFR For Non-African Americans > 60 (> 60)
[2020-12-02] MEDS: Insulin LISPRO 300 UNITS/3 ML VIAL SUBQ SCH ×4 (07:41→20:37)
[2020-12-02] MEDS: *HR* Metformin 500 MG TABLET PO SCH ×2 (08:57→16:52)
[2020-12-02] MEDS: Aspirin 81 MG TAB.CHEW PO SCH (08:57)
[2020-12-02] MEDS: Gabapentin 400 MG CAPSULE PO SCH ×3 (08:57→20:37)
[2020-12-02] MEDS: DilTIAZem CD (24hr) 240 MG CAP.ER.24H PO SCH (08:57)
[2020-12-02] MEDS: Furosemide 40 MG TABLET PO SCH (08:57)
[2020-12-02] MEDS: carvediloL 6.25 MG TABLET PO SCH ×2 (08:57→16:52)
[2020-12-02] MEDS: acetaZOLAMIDE 250 MG TABLET PO SCH (08:57)
[2020-12-02] MEDS: Loratadine 10 MG TABLET PO SCH (08:57)
[2020-12-02] MEDS: Nystatin POWDER 30 GM BOTTLE TP SCH ×3 (08:58→20:39)
[2020-12-02] MEDS: Budesonide/Formoterol 160/4.5 1 PUFF INH IH SCH ×2 (09:24→23:36)
[2020-12-02] MEDS: Levalbuterol 1 PUFF INHALER IH PRN ×2 (09:24→23:36)
[2020-12-02] MEDS: *HR* Rivaroxaban 10 MG TABLET PO SCH (16:52)
[2020-12-02 17:00] LABS: Bilirubin,Urine Negative (Negative); Blood,Urine Negative (Negative); Clarity,Urine Clear (Clear); Color,Urine Yellow (Yellow); Glucose,Urine (UA) Normal (Normal); Ketones,Urine Negative (Negative); Leukocyte Esterase,Urine Trace (Negative); Nitrite,Urine Negative (Negative); Protein,Urine Negative (Neg-Trace); Urobilinogen,Urine Normal (Normal)
[2020-12-02 18:07] LABS: Hyaline Casts,Urine Few per lpf (None Seen); RBC,Urine 0-3 per hpf (0-3); Squamous Epithelial Cell,Urine Few per hpf (None-Few)
[2020-12-03] MEDS: Levothyroxine 25 MCG TABLET PO SCH (06:28)
[2020-12-03] MEDS: Levalbuterol 1 PUFF INHALER IH PRN ×2 (08:02→22:04)
[2020-12-03] MEDS: Budesonide/Formoterol 160/4.5 1 PUFF INH IH SCH ×2 (08:02→22:04)
[2020-12-03] MEDS: Gabapentin 400 MG CAPSULE PO SCH ×3 (09:54→20:27)
[2020-12-03] MEDS: Loratadine 10 MG TABLET PO SCH (09:55)
[2020-12-03] MEDS: DilTIAZem CD (24hr) 240 MG CAP.ER.24H PO SCH (09:55)
[2020-12-03] MEDS: Furosemide 40 MG TABLET PO SCH (09:55)
[2020-12-03] MEDS: *HR* Metformin 500 MG TABLET PO SCH ×2 (09:55→16:37)
[2020-12-03] MEDS: Insulin LISPRO 300 UNITS/3 ML VIAL SUBQ SCH ×4 (09:55→20:34)
[2020-12-03] MEDS: carvediloL 6.25 MG TABLET PO SCH ×2 (09:55→16:36)
[2020-12-03] MEDS: Aspirin 81 MG TAB.CHEW PO SCH (09:55)
[2020-12-03] MEDS: Nystatin POWDER 30 GM BOTTLE TP SCH ×3 (10:10→20:27)
[2020-12-03] MEDS: *HR* Rivaroxaban 10 MG TABLET PO SCH (16:37)
[2020-12-04] MEDS: Levothyroxine 25 MCG TABLET PO SCH (06:45)
[2020-12-04] MEDS: Insulin LISPRO 300 UNITS/3 ML VIAL SUBQ SCH ×4 (08:16→20:24)
[2020-12-04] MEDS: *HR* Metformin 500 MG TABLET PO SCH ×2 (08:29→16:42)
[2020-12-04] MEDS: Gabapentin 400 MG CAPSULE PO SCH ×3 (08:29→20:22)
[2020-12-04] MEDS: Furosemide 40 MG TABLET PO SCH (08:29)
[2020-12-04] MEDS: Aspirin 81 MG TAB.CHEW PO SCH (08:29)
[2020-12-04] MEDS: Loratadine 10 MG TABLET PO SCH (08:29)
[2020-12-04] MEDS: DilTIAZem CD (24hr) 240 MG CAP.ER.24H PO SCH (08:29)
[2020-12-04] MEDS: carvediloL 6.25 MG TABLET PO SCH ×2 (08:29→16:42)
[2020-12-04] MEDS: Nystatin POWDER 30 GM BOTTLE TP SCH ×3 (08:30→20:24)
[2020-12-04] MEDS: Budesonide/Formoterol 160/4.5 1 PUFF INH IH SCH ×2 (09:52→21:54)
[2020-12-04] MEDS: Levalbuterol 1 PUFF INHALER IH PRN ×2 (09:53→21:54)
[2020-12-04] MEDS: hydrOXYzine pamoate 25 MG CAPSULE PO PRN ×2 (11:28→20:23)
[2020-12-04] MEDS: Simethicone 80 MG TAB.CHEW PO PRN (11:28)
[2020-12-04] MEDS: *HR* Rivaroxaban 10 MG TABLET PO SCH (16:41)
[2020-12-05] MEDS: Levothyroxine 25 MCG TABLET PO SCH (05:51)
[2020-12-05] MEDS: Budesonide/Formoterol 160/4.5 1 PUFF INH IH SCH ×2 (08:35→21:39)
[2020-12-05] MEDS: Levalbuterol 1 PUFF INHALER IH PRN ×2 (08:37→21:39)
[2020-12-05] MEDS: Furosemide 40 MG TABLET PO SCH (09:24)
[2020-12-05] MEDS: Gabapentin 400 MG CAPSULE PO SCH ×3 (09:24→21:13)
[2020-12-05] MEDS: *HR* Metformin 500 MG TABLET PO SCH ×2 (09:24→17:02)
[2020-12-05] MEDS: Loratadine 10 MG TABLET PO SCH (09:24)
[2020-12-05] MEDS: Aspirin 81 MG TAB.CHEW PO SCH (09:24)
[2020-12-05] MEDS: DilTIAZem CD (24hr) 240 MG CAP.ER.24H PO SCH (09:24)
[2020-12-05] MEDS: carvediloL 6.25 MG TABLET PO SCH ×2 (09:24→17:02)
[2020-12-05] MEDS: Insulin LISPRO 300 UNITS/3 ML VIAL SUBQ SCH ×4 (09:25→21:11)
[2020-12-05] MEDS: Nystatin POWDER 30 GM BOTTLE TP SCH ×3 (09:27→21:17)
[2020-12-05] MEDS: hydrOXYzine pamoate 25 MG CAPSULE PO PRN ×2 (14:26→21:13)
[2020-12-05] MEDS: Simethicone 80 MG TAB.CHEW PO PRN (14:26)
[2020-12-05] MEDS: *HR* Rivaroxaban 10 MG TABLET PO SCH (17:02)
[2020-12-05 20:26] VITALS: PULSE 68
[2020-12-06] MEDS: hydrOXYzine pamoate 25 MG CAPSULE PO PRN ×2 (03:54→09:25)
[2020-12-06] MEDS: Levothyroxine 25 MCG TABLET PO SCH (05:56)
[2020-12-06 06:48] VITALS: BP 128/75; TEMP 97.3
[2020-12-06] MEDS: Budesonide/Formoterol 160/4.5 1 PUFF INH IH SCH (09:13)
[2020-12-06] MEDS: Insulin LISPRO 300 UNITS/3 ML VIAL SUBQ SCH (09:16)
[2020-12-06 09:18] VITALS: RESP 18; O2SAT 98
[2020-12-06] MEDS: Gabapentin 400 MG CAPSULE PO SCH (09:23)
[2020-12-06] MEDS: Furosemide 40 MG TABLET PO SCH (09:24)
[2020-12-06] MEDS: *HR* Metformin 500 MG TABLET PO SCH (09:24)
[2020-12-06] MEDS: Loratadine 10 MG TABLET PO SCH (09:24)
[2020-12-06] MEDS: carvediloL 6.25 MG TABLET PO SCH (09:24)
[2020-12-06] MEDS: DilTIAZem CD (24hr) 240 MG CAP.ER.24H PO SCH (09:24)
[2020-12-06] MEDS: Aspirin 81 MG TAB.CHEW PO SCH (09:24)
[2020-12-06] MEDS: Nystatin POWDER 30 GM BOTTLE TP SCH (09:26)
== END 2020-12-06 11:58 | disposition home health service (06) | DRG 945 ==
LOC: INPPIK 19:56
PROVIDERS: ADMIT Family Medicine; ATTEND Family Medicine

== ENCOUNTER 2021-07-29 10:03 | Inpatient (IN) ==
[2021-07-29 10:59] LABS: Basophils % 0.5 %; Eosinophils # 0.1 K/mcL (0.0-0.6); Eosinophils % 2.4 %; Hematocrit 31.4 % (35.3-44.9); Hemoglobin 8.7 g/dL (11.5-15.4); Immature Granulocytes % 0.5 % (0-4); Lymphocytes % 22.9 %; Mean Corpuscular HGB Conc 27.7 g/dL (31.6-35.5); Mean Corpuscular Volume 86.7 fL (83.0-100.0); Mean Platelet Volume 9.7 fL (9.4-12.4); Monocytes # 0.5 K/mcL (0.0-1.3); Monocytes % 12.3 %; Neutrophils # 2.6 K/mcL (1.6-8.9); Platelet Count 180 K/mcL (140-400); Red Blood Count 3.62 M/mcL (3.82-4.97); Segmented Neutrophils % 61.4 %; White Blood Count 4.2 K/mcL (4.3-11.1)
[2021-07-29 11:01] LABS: Bilirubin,Urine Small (Negative); Blood,Urine Negative (Negative); Clarity,Urine Clear (Clear); Color,Urine Yellow (Yellow); Glucose,Urine (UA) Normal (Normal); Ketones,Urine Trace mg/dL (Negative); Leukocyte Esterase,Urine Negative (Negative); Nitrite,Urine Negative (Negative); PH,Urine 5.5 pH Units (5.0-8.0); Protein,Urine Negative (Neg-Trace); Specific Gravity,Urine >= 1.030 (1.010-1.025)
[2021-07-29 11:02] LABS: VBG HCO3 36 mEq/L (21-27); VBG PCO2 74 mmHg (41-51); VBG PO2 27 mmHg (25-50)
[2021-07-29 11:10] LABS: Amphetamine Screen,Urine Negative ng/mL (Cutoff=1000); Barbiturate Screen,Urine Negative ng/mL (Cutoff=200); Benzodiazepines Screen,Urine Negative ng/mL (Cutoff=200); Cannabinoid Screen,Urine Negative ng/mL (Cutoff = 50); Cocaine Screen,Urine Negative ng/mL (Cutoff= 300); Opiate Screen,Urine Negative ng/mL (Cutoff=300); Phencyclidine Screen,Urine Negative ng/mL (Cutoff=25)
[2021-07-29 11:16] LABS: BUN/Creatinine Ratio 23 (6-26); Blood Urea Nitrogen 21 mg/dL (8-23); Calcium 8.7 mg/dL (8.6-10.3); Carbon Dioxide 39 mEq/L (23-29); Chloride 98 mEq/L (98-107); Glucose 144 mg/dL (70-105); Osmolality,Calculated 300 (280-300); Potassium 4.3 mEq/L (3.5-5.1); Sodium 142 mEq/L (136-145); eGFR For African Americans > 60 (> 60); eGFR For Non-African Americans > 60 (> 60)
[2021-07-29 11:41] LABS: Microcytosis Present (Not Present); Platelet Estimate Normal (Normal)
[2021-07-29 13:39] LABS: Albumin 3.6 g/dL (3.5-5.7); Albumin/Globulin Ratio 1.2 (1.1-2.2); Bilirubin,Direct 0.2 mg/dL (0.0-0.2); Bilirubin,Indirect 0.3 mg/dL (0.0-1.0); Bilirubin,Total 0.5 mg/dL (0.3-1.0); Total Protein 6.6 g/dL (6.4-8.9)
[2021-07-29] MEDS: 0.9 % Sodium Chloride 1,000 ML IVC SCH ×2 (13:46→23:32)
[2021-07-29] MEDS ORDERED: Ondansetron ODT 4 MG TAB.RAPDIS SL PRN (13:50)
[2021-07-29] MEDS ORDERED: Simethicone 80 MG TAB.CHEW PO PRN (13:50)
[2021-07-29] MEDS ORDERED: Naloxone 0.4 MG/ML INJ IVP PRN (13:53)
[2021-07-29] MEDS ORDERED: *HR* Dextrose 50 % in Water (Syg) 50 ML SYRINGE IVP PRN (13:55)
[2021-07-29] MEDS ORDERED: Dextrose 4 GM Chewable Tablets PO PRN ×2 (13:55)
[2021-07-29] MEDS ORDERED: D5% in Water 1,000 ML IVC PRN (13:55)
[2021-07-29] MEDS ORDERED: Levalbuterol 1 PUFF INHALER IH PRN (15:20)
[2021-07-29] MEDS ORDERED: Ipratropium 1 PUFF INHALER IH SCH (16:00)
[2021-07-29] MEDS ORDERED: *HR* Metformin 500 MG TABLET PO SCH (17:00)
[2021-07-29] MEDS: cefTRIAXone 1,000 MG in 0.9 % Sodium Chloride Mini Bag 100 ML IVPB SCH (18:32)
[2021-07-29] MEDS: carvediloL 6.25 MG TABLET PO SCH (18:34)
[2021-07-29] MEDS: *HR* Rivaroxaban 10 MG TABLET PO SCH (18:34)
[2021-07-29] MEDS: Nystatin POWDER 30 GM BOTTLE TP SCH ×2 (18:35→20:37)
[2021-07-29] MEDS: Insulin LISPRO 300 UNITS/3 ML VIAL SUBQ SCH ×2 (18:38→20:36)
[2021-07-29] MEDS: Budesonide/Formoterol 160/4.5 1 PUFF INH IH SCH (22:19)
[2021-07-30] MEDS ORDERED: Haloperidol Lactate 5 MG/ML VIAL IVP ONE (01:47)
[2021-07-30] MEDS ORDERED: *HR* LORazepam 2 MG/ML VIAL IVP ONE (04:13)
[2021-07-30] MEDS: Levothyroxine 25 MCG TABLET PO SCH ×2 (05:52→08:25)
[2021-07-30] MEDS: Insulin LISPRO 300 UNITS/3 ML VIAL SUBQ SCH ×4 (07:08→22:51)
[2021-07-30 08:08] LABS: Basophils % 0.5 %; Eosinophils # 0.1 K/mcL (0.0-0.6); Eosinophils % 2.9 %; Hematocrit 30.1 % (35.3-44.9); Hemoglobin 8.6 g/dL (11.5-15.4); Immature Granulocytes % 1.2 % (0-4); Lymphocytes # 1.1 K/mcL (0.6-4.6); Lymphocytes % 26.4 %; Mean Corpuscular HGB Conc 28.6 g/dL (31.6-35.5); Mean Corpuscular Hemoglobin 24.4 pg (28.0-33.3); Mean Corpuscular Volume 85.3 fL (83.0-100.0); Mean Platelet Volume 9.7 fL (9.4-12.4); Monocytes # 0.4 K/mcL (0.0-1.3); Monocytes % 10.5 %; Neutrophils # 2.5 K/mcL (1.6-8.9); Platelet Count 161 K/mcL (140-400); Red Blood Count 3.53 M/mcL (3.82-4.97); Segmented Neutrophils % 58.5 %; White Blood Count 4.2 K/mcL (4.3-11.1)
[2021-07-30 08:17] LABS: VBG HCO3 31 mEq/L (21-27); VBG PCO2 54 mmHg (41-51); VBG PH 7.36 pH Units (7.32-7.42); VBG PO2 76 mmHg (25-50)
[2021-07-30] MEDS: Nystatin POWDER 30 GM BOTTLE TP SCH ×3 (08:23→19:47)
[2021-07-30] MEDS: Loratadine 10 MG TABLET PO SCH (08:23)
[2021-07-30] MEDS: Aspirin 81 MG TAB.CHEW PO SCH (08:24)
[2021-07-30] MEDS: carvediloL 6.25 MG TABLET PO SCH ×2 (08:24→16:59)
[2021-07-30] MEDS: DilTIAZem CD (24hr) 240 MG CAP.ER.24H PO SCH (08:24)
[2021-07-30 08:29] LABS: BUN/Creatinine Ratio 22 (6-26); Blood Urea Nitrogen 18 mg/dL (8-23); Calcium 8.4 mg/dL (8.6-10.3); Carbon Dioxide 33 mEq/L (23-29); Chloride 99 mEq/L (98-107); Glucose 118 mg/dL (70-105); Magnesium 1.5 mg/dL (1.6-2.6); Osmolality,Calculated 289 (280-300); Potassium 4.3 mEq/L (3.5-5.1); Sodium 138 mEq/L (136-145); eGFR For African Americans > 60 (> 60); eGFR For Non-African Americans > 60 (> 60)
[2021-07-30] MEDS ORDERED: Furosemide 40 MG TABLET PO SCH (09:00)
[2021-07-30] MEDS ORDERED: NON-FORMULARY MEDICATION 1 EACH EACH (Omega-3/Dha/Epa/Fish Oil [Fish Oil 1,000 Mg Softgel] PO SCH (09:00)
[2021-07-30] MEDS: Budesonide/Formoterol 160/4.5 1 PUFF INH IH SCH ×2 (09:22→22:01)
[2021-07-30 10:53] LABS: Anisocytosis 1+ (Not Present); Hypochromasia Present (Not Present); Microcytosis Present (Not Present); Ovalocytes 1+ (Not Present); Platelet Estimate Normal (Normal)
[2021-07-30] MEDS: *HR* Rivaroxaban 10 MG TABLET PO SCH (16:59)
[2021-07-30] MEDS: cefTRIAXone 1,000 MG in 0.9 % Sodium Chloride Mini Bag 100 ML IVPB SCH (17:01)
[2021-07-30] MEDS ORDERED: cloNIDine HCL 0.1 MG TABLET PO ONE (18:54)
[2021-07-30] MEDS: hydrOXYzine pamoate 25 MG CAPSULE PO PRN (19:46)
[2021-07-31] MEDS: Levothyroxine 25 MCG TABLET PO SCH ×2 (05:28→09:06)
[2021-07-31 05:48] LABS: Basophils % 0.4 %; Eosinophils # 0.2 K/mcL (0.0-0.6); Eosinophils % 3.5 %; Hematocrit 30.2 % (35.3-44.9); Hemoglobin 8.5 g/dL (11.5-15.4); Immature Granulocytes % 0.7 % (0-4); Lymphocytes # 1.1 K/mcL (0.6-4.6); Lymphocytes % 23.7 %; Mean Corpuscular HGB Conc 28.1 g/dL (31.6-35.5); Mean Corpuscular Hemoglobin 24.2 pg (28.0-33.3); Mean Platelet Volume 9.3 fL (9.4-12.4); Monocytes # 0.4 K/mcL (0.0-1.3); Monocytes % 8.6 %; Neutrophils # 2.8 K/mcL (1.6-8.9); Platelet Count 168 K/mcL (140-400); Red Blood Count 3.51 M/mcL (3.82-4.97); Red Cell Distribution Width 16.1 % (11.5-14.5); Segmented Neutrophils % 63.1 %; White Blood Count 4.5 K/mcL (4.3-11.1)
[2021-07-31 07:03] LABS: BUN/Creatinine Ratio 17 (6-26); Blood Urea Nitrogen 13 mg/dL (8-23); Calcium 8.5 mg/dL (8.6-10.3); Carbon Dioxide 31 mEq/L (23-29); Chloride 100 mEq/L (98-107); Glucose 127 mg/dL (70-105); Magnesium 1.7 mg/dL (1.6-2.6); Osmolality,Calculated 288 (280-300); Potassium 4.1 mEq/L (3.5-5.1); Sodium 138 mEq/L (136-145); eGFR For African Americans > 60 (> 60); eGFR For Non-African Americans > 60 (> 60)
[2021-07-31] MEDS: Insulin LISPRO 300 UNITS/3 ML VIAL SUBQ SCH ×4 (07:30→22:31)
[2021-07-31 07:37] LABS: Hypochromasia Present (Not Present)
[2021-07-31] MEDS: Loratadine 10 MG TABLET PO SCH (09:02)
[2021-07-31] MEDS: carvediloL 6.25 MG TABLET PO SCH ×2 (09:02→16:46)
[2021-07-31] MEDS: DilTIAZem CD (24hr) 240 MG CAP.ER.24H PO SCH (09:02)
[2021-07-31] MEDS: Aspirin 81 MG TAB.CHEW PO SCH (09:02)
[2021-07-31] MEDS: Nystatin POWDER 30 GM BOTTLE TP SCH ×3 (09:03→21:11)
[2021-07-31] MEDS: Budesonide/Formoterol 160/4.5 1 PUFF INH IH SCH ×2 (09:39→22:05)
[2021-07-31] MEDS: hydroCHLOROthiazide 25 MG TABLET PO SCH (16:46)
[2021-07-31] MEDS: *HR* Rivaroxaban 10 MG TABLET PO SCH (16:46)
[2021-07-31] MEDS: Gabapentin 400 MG CAPSULE PO SCH (21:11)
[2021-07-31] MEDS: Cefdinir 300 MG CAPSULE PO SCH (21:11)
[2021-08-01] MEDS: Levothyroxine 25 MCG TABLET PO SCH (05:30)
[2021-08-01 07:34] LABS: Basophils % 0.2 %; Eosinophils # 0.1 K/mcL (0.0-0.6); Eosinophils % 3.1 %; Hematocrit 29.2 % (35.3-44.9); Hemoglobin 8.4 g/dL (11.5-15.4); Immature Granulocytes % 0.5 % (0-4); Lymphocytes % 24.8 %; Mean Corpuscular HGB Conc 28.8 g/dL (31.6-35.5); Mean Corpuscular Hemoglobin 24.3 pg (28.0-33.3); Mean Corpuscular Volume 84.6 fL (83.0-100.0); Mean Platelet Volume 9.1 fL (9.4-12.4); Monocytes # 0.4 K/mcL (0.0-1.3); Monocytes % 10.5 %; Neutrophils # 2.6 K/mcL (1.6-8.9); Platelet Count 164 K/mcL (140-400); Red Blood Count 3.45 M/mcL (3.82-4.97); Red Cell Distribution Width 16.2 % (11.5-14.5); Segmented Neutrophils % 60.9 %; White Blood Count 4.2 K/mcL (4.3-11.1)
[2021-08-01 07:54] LABS: Anisocytosis 1+ (Not Present); BUN/Creatinine Ratio 15 (6-26); Blood Urea Nitrogen 12 mg/dL (8-23); Calcium 8.6 mg/dL (8.6-10.3); Carbon Dioxide 37 mEq/L (23-29); Chloride 100 mEq/L (98-107); Glucose 134 mg/dL (70-105); Hypochromasia Present (Not Present); Magnesium 1.7 mg/dL (1.6-2.6); Osmolality,Calculated 292 (280-300); Platelet Estimate Normal (Normal); Potassium 3.8 mEq/L (3.5-5.1); Sodium 140 mEq/L (136-145); eGFR For African Americans > 60 (> 60); eGFR For Non-African Americans > 60 (> 60)
[2021-08-01] MEDS: Insulin LISPRO 300 UNITS/3 ML VIAL SUBQ SCH ×4 (08:06→21:35)
[2021-08-01] MEDS: Cefdinir 300 MG CAPSULE PO SCH ×2 (08:08→21:39)
[2021-08-01] MEDS: Aspirin 81 MG TAB.CHEW PO SCH (08:09)
[2021-08-01] MEDS: carvediloL 6.25 MG TABLET PO SCH ×2 (08:09→17:17)
[2021-08-01] MEDS: Gabapentin 400 MG CAPSULE PO SCH ×2 (08:09→21:39)
[2021-08-01] MEDS: Loratadine 10 MG TABLET PO SCH (08:10)
[2021-08-01] MEDS: DilTIAZem CD (24hr) 240 MG CAP.ER.24H PO SCH (08:10)
[2021-08-01] MEDS: hydroCHLOROthiazide 25 MG TABLET PO SCH (08:10)
[2021-08-01] MEDS ORDERED: Furosemide 20 MG TABLET PO SCH (09:00)
[2021-08-01] MEDS: Budesonide/Formoterol 160/4.5 1 PUFF INH IH SCH ×2 (09:14→21:58)
[2021-08-01] MEDS: Nystatin POWDER 30 GM BOTTLE TP SCH ×3 (10:13→21:48)
[2021-08-01] MEDS: *HR* Rivaroxaban 10 MG TABLET PO SCH (17:17)
[2021-08-01] MEDS: acetaZOLAMIDE 250 MG TABLET PO SCH (21:39)
[2021-08-01] MEDS: hydrOXYzine pamoate 25 MG CAPSULE PO PRN (21:48)
[2021-08-02] MEDS: Levothyroxine 25 MCG TABLET PO SCH (06:06)
[2021-08-02 07:42] LABS: Basophils % 0.4 %; Eosinophils # 0.2 K/mcL (0.0-0.6); Eosinophils % 3.3 %; Hematocrit 30.3 % (35.3-44.9); Hemoglobin 8.6 g/dL (11.5-15.4); Immature Granulocytes % 0.6 % (0-4); Lymphocytes # 1.2 K/mcL (0.6-4.6); Mean Corpuscular HGB Conc 28.4 g/dL (31.6-35.5); Mean Corpuscular Hemoglobin 24.2 pg (28.0-33.3); Mean Corpuscular Volume 85.1 fL (83.0-100.0); Mean Platelet Volume 9.3 fL (9.4-12.4); Monocytes # 0.5 K/mcL (0.0-1.3); Neutrophils # 3.3 K/mcL (1.6-8.9); Platelet Count 178 K/mcL (140-400); Red Blood Count 3.56 M/mcL (3.82-4.97); Red Cell Distribution Width 16.3 % (11.5-14.5); Segmented Neutrophils % 63.7 %; White Blood Count 5.1 K/mcL (4.3-11.1)
[2021-08-02 07:45] VITALS: BP 157/75; PULSE 63; TEMP 97.5
[2021-08-02] MEDS: Budesonide/Formoterol 160/4.5 1 PUFF INH IH SCH (08:01)
[2021-08-02 08:03] VITALS: RESP 18
[2021-08-02 08:03] LABS: BUN/Creatinine Ratio 16 (6-26); Blood Urea Nitrogen 13 mg/dL (8-23); Calcium 8.8 mg/dL (8.6-10.3); Carbon Dioxide 35 mEq/L (23-29); Chloride 101 mEq/L (98-107); Glucose 130 mg/dL (70-105); Osmolality,Calculated 292 (280-300); Potassium 3.8 mEq/L (3.5-5.1); Sodium 140 mEq/L (136-145); eGFR For African Americans > 60 (> 60); eGFR For Non-African Americans > 60 (> 60)
[2021-08-02] MEDS: Loratadine 10 MG TABLET PO SCH (08:05)
[2021-08-02] MEDS: Aspirin 81 MG TAB.CHEW PO SCH (08:05)
[2021-08-02] MEDS: carvediloL 6.25 MG TABLET PO SCH ×2 (08:05→16:49)
[2021-08-02] MEDS: Gabapentin 400 MG CAPSULE PO SCH (08:05)
[2021-08-02] MEDS: acetaZOLAMIDE 250 MG TABLET PO SCH (08:06)
[2021-08-02] MEDS: DilTIAZem CD (24hr) 240 MG CAP.ER.24H PO SCH (08:06)
[2021-08-02] MEDS: Nystatin POWDER 30 GM BOTTLE TP SCH ×2 (08:06→16:49)
[2021-08-02] MEDS: Insulin LISPRO 300 UNITS/3 ML VIAL SUBQ SCH ×3 (08:06→16:49)
[2021-08-02] MEDS: Cefdinir 300 MG CAPSULE PO SCH (08:06)
[2021-08-02 08:28] LABS: Anisocytosis 1+ (Not Present); Hypochromasia Present (Not Present); Platelet Estimate Normal (Normal)
[2021-08-02 09:57] VITALS: O2SAT 95
[2021-08-02] MEDS: *HR* Rivaroxaban 10 MG TABLET PO SCH (16:48)
== END 2021-08-02 16:59 | disposition other institution (70) | DRG 689 ==
LOC: EMEROOPIK 10:03 → INPPIK 10:03
PROVIDERS: ADMIT Internal Medicine; ATTEND Internal Medicine

== ENCOUNTER 2021-07-31 19:27 | Inpatient (IN) ==
[2021-08-02] MEDS ORDERED: Ondansetron ODT 4 MG TAB.RAPDIS SL PRN (17:40)
[2021-08-02] MEDS ORDERED: Simethicone 80 MG TAB.CHEW PO PRN (17:40)
[2021-08-02] MEDS ORDERED: *HR* Dextrose 50 % in Water (Syg) 50 ML SYRINGE IVP PRN (17:45)
[2021-08-02] MEDS ORDERED: Dextrose 4 GM Chewable Tablets PO PRN ×2 (17:45)
[2021-08-02] MEDS ORDERED: D5% in Water 1,000 ML IVC PRN (17:45)
[2021-08-02] MEDS ORDERED: Levalbuterol 1 PUFF INHALER IH PRN (18:59)
[2021-08-02] MEDS ORDERED: Ipratropium 1 PUFF INHALER IH SCH (20:00)
[2021-08-02] MEDS ORDERED: Levalbuterol 1 PUFF INHALER IH SCH (20:00)
[2021-08-02] MEDS: Insulin LISPRO 300 UNITS/3 ML VIAL SUBQ SCH (21:28)
[2021-08-02] MEDS: Gabapentin 400 MG CAPSULE PO SCH (21:40)
[2021-08-02] MEDS: Cefdinir 300 MG CAPSULE PO SCH (21:40)
[2021-08-02] MEDS: Nystatin POWDER 30 GM BOTTLE TP SCH (21:40)
[2021-08-02] MEDS: acetaZOLAMIDE 250 MG TABLET PO SCH (21:40)
[2021-08-02] MEDS: Budesonide/Formoterol 160/4.5 1 PUFF INH IH SCH (21:46)
[2021-08-03] MEDS: hydrOXYzine pamoate 25 MG CAPSULE PO PRN (02:24)
[2021-08-03 07:24] LABS: Basophils % 0.3 %; Eosinophils # 0.2 K/mcL (0.0-0.6); Eosinophils % 3.2 %; Hematocrit 31.2 % (35.3-44.9); Hemoglobin 8.7 g/dL (11.5-15.4); Immature Granulocytes % 0.5 % (0-4); Lymphocytes # 1.3 K/mcL (0.6-4.6); Lymphocytes % 22.4 %; Mean Corpuscular HGB Conc 27.9 g/dL (31.6-35.5); Mean Corpuscular Hemoglobin 24.1 pg (28.0-33.3); Mean Corpuscular Volume 86.4 fL (83.0-100.0); Mean Platelet Volume 9.1 fL (9.4-12.4); Monocytes # 0.5 K/mcL (0.0-1.3); Neutrophils # 3.8 K/mcL (1.6-8.9); Platelet Count 190 K/mcL (140-400); Red Blood Count 3.61 M/mcL (3.82-4.97); Red Cell Distribution Width 16.3 % (11.5-14.5); Segmented Neutrophils % 64.6 %; White Blood Count 5.9 K/mcL (4.3-11.1)
[2021-08-03 07:53] LABS: BUN/Creatinine Ratio 15 (6-26); Blood Urea Nitrogen 14 mg/dL (8-23); Calcium 8.9 mg/dL (8.6-10.3); Carbon Dioxide 32 mEq/L (23-29); Chloride 105 mEq/L (98-107); Glucose 141 mg/dL (70-105); Osmolality,Calculated 295 (280-300); Potassium 3.9 mEq/L (3.5-5.1); Sodium 141 mEq/L (136-145); eGFR For African Americans > 60 (> 60); eGFR For Non-African Americans 60 (> 60)
[2021-08-03] MEDS ORDERED: *HR* Metformin 500 MG TABLET PO SCH (08:00)
[2021-08-03 08:34] LABS: Hypochromasia Present (Not Present); Platelet Estimate Normal (Normal)
[2021-08-03] MEDS: Insulin LISPRO 300 UNITS/3 ML VIAL SUBQ SCH ×4 (08:57→21:52)
[2021-08-03] MEDS: DilTIAZem CD (24hr) 240 MG CAP.ER.24H PO SCH (09:00)
[2021-08-03] MEDS: Levothyroxine 25 MCG TABLET PO SCH (09:00)
[2021-08-03] MEDS: carvediloL 6.25 MG TABLET PO SCH ×2 (09:00→17:31)
[2021-08-03] MEDS: acetaZOLAMIDE 250 MG TABLET PO SCH ×2 (09:00→21:52)
[2021-08-03] MEDS: Gabapentin 400 MG CAPSULE PO SCH ×2 (09:00→21:51)
[2021-08-03] MEDS ORDERED: NON-FORMULARY MEDICATION 1 EACH EACH (Omega-3/Dha/Epa/Fish Oil [Fish Oil 1,000 Mg Softgel] PO SCH (09:00)
[2021-08-03] MEDS: Cefdinir 300 MG CAPSULE PO SCH ×2 (09:00→21:52)
[2021-08-03] MEDS: Aspirin 81 MG TAB.CHEW PO SCH (09:00)
[2021-08-03] MEDS: Loratadine 10 MG TABLET PO SCH (09:00)
[2021-08-03] MEDS: Nystatin POWDER 30 GM BOTTLE TP SCH ×3 (09:01→21:52)
[2021-08-03] MEDS: Budesonide/Formoterol 160/4.5 1 PUFF INH IH SCH ×2 (09:29→22:42)
[2021-08-03] MEDS: *HR* Rivaroxaban 10 MG TABLET PO SCH (17:31)
[2021-08-04] MEDS: Insulin LISPRO 300 UNITS/3 ML VIAL SUBQ SCH ×4 (08:36→21:00)
[2021-08-04] MEDS: Aspirin 81 MG TAB.CHEW PO SCH (08:41)
[2021-08-04] MEDS: Gabapentin 400 MG CAPSULE PO SCH ×2 (08:41→21:02)
[2021-08-04] MEDS: carvediloL 6.25 MG TABLET PO SCH ×2 (08:42→17:21)
[2021-08-04] MEDS: Levothyroxine 25 MCG TABLET PO SCH (08:42)
[2021-08-04] MEDS: Furosemide 20 MG TABLET PO SCH (08:42)
[2021-08-04] MEDS: Cefdinir 300 MG CAPSULE PO SCH (08:42)
[2021-08-04] MEDS: Nystatin POWDER 30 GM BOTTLE TP SCH ×3 (08:42→21:05)
[2021-08-04] MEDS: DilTIAZem CD (24hr) 240 MG CAP.ER.24H PO SCH (08:42)
[2021-08-04] MEDS: Loratadine 10 MG TABLET PO SCH (08:42)
[2021-08-04] MEDS: Budesonide/Formoterol 160/4.5 1 PUFF INH IH SCH ×2 (10:01→21:54)
[2021-08-04 13:50] LABS: Bilirubin,Urine Negative (Negative); Blood,Urine Moderate (Negative); Clarity,Urine Clear (Clear); Color,Urine Yellow (Yellow); Glucose,Urine (UA) Normal (Normal); Ketones,Urine Negative (Negative); Leukocyte Esterase,Urine Negative (Negative); Nitrite,Urine Negative (Negative); PH,Urine 5.5 pH Units (5.0-8.0); Protein,Urine Negative (Neg-Trace); Specific Gravity,Urine 1.015 (1.010-1.025); Urobilinogen,Urine Normal (Normal)
[2021-08-04 13:57] LABS: Hyaline Casts,Urine Few per lpf (None Seen); Squamous Epithelial Cell,Urine Few per hpf (None-Few); WBC,Urine 0-3 per hpf (0-3)
[2021-08-04] MEDS: *HR* Rivaroxaban 10 MG TABLET PO SCH (17:19)
[2021-08-05] MEDS: hydrOXYzine pamoate 25 MG CAPSULE PO PRN (03:29)
[2021-08-05] MEDS: Insulin LISPRO 300 UNITS/3 ML VIAL SUBQ SCH ×4 (07:17→20:12)
[2021-08-05] MEDS: carvediloL 6.25 MG TABLET PO SCH ×2 (09:07→16:59)
[2021-08-05] MEDS: Furosemide 20 MG TABLET PO SCH (09:07)
[2021-08-05] MEDS: Gabapentin 400 MG CAPSULE PO SCH ×2 (09:07→20:11)
[2021-08-05] MEDS: Aspirin 81 MG TAB.CHEW PO SCH (09:07)
[2021-08-05] MEDS: Loratadine 10 MG TABLET PO SCH (09:07)
[2021-08-05] MEDS: DilTIAZem CD (24hr) 240 MG CAP.ER.24H PO SCH (09:07)
[2021-08-05] MEDS: Levothyroxine 25 MCG TABLET PO SCH (09:07)
[2021-08-05] MEDS: Nystatin POWDER 30 GM BOTTLE TP SCH ×3 (09:08→20:12)
[2021-08-05] MEDS: Budesonide/Formoterol 160/4.5 1 PUFF INH IH SCH ×2 (11:46→22:32)
[2021-08-05] MEDS: *HR* Rivaroxaban 10 MG TABLET PO SCH (16:59)
[2021-08-06 07:57] LABS: BUN/Creatinine Ratio 20 (6-26); Blood Urea Nitrogen 20 mg/dL (8-23); Calcium 8.9 mg/dL (8.6-10.3); Carbon Dioxide 34 mEq/L (23-29); Chloride 104 mEq/L (98-107); Glucose 183 mg/dL (70-105); Osmolality,Calculated 299 (280-300); Potassium 3.9 mEq/L (3.5-5.1); Sodium 141 mEq/L (136-145); eGFR For African Americans > 60 (> 60); eGFR For Non-African Americans 56 (> 60)
[2021-08-06] MEDS: Insulin LISPRO 300 UNITS/3 ML VIAL SUBQ SCH ×4 (08:37→22:38)
[2021-08-06] MEDS: Budesonide/Formoterol 160/4.5 1 PUFF INH IH SCH ×2 (09:08→21:40)
[2021-08-06] MEDS: Aspirin 81 MG TAB.CHEW PO SCH (10:18)
[2021-08-06] MEDS: carvediloL 6.25 MG TABLET PO SCH ×2 (10:18→17:16)
[2021-08-06] MEDS: DilTIAZem CD (24hr) 240 MG CAP.ER.24H PO SCH (10:18)
[2021-08-06] MEDS: Levothyroxine 25 MCG TABLET PO SCH (10:18)
[2021-08-06] MEDS: Loratadine 10 MG TABLET PO SCH (10:18)
[2021-08-06] MEDS: Gabapentin 400 MG CAPSULE PO SCH ×2 (10:18→20:35)
[2021-08-06] MEDS: Furosemide 20 MG TABLET PO SCH (10:19)
[2021-08-06] MEDS: Nystatin POWDER 30 GM BOTTLE TP SCH ×3 (10:19→22:40)
[2021-08-06] MEDS: *HR* Rivaroxaban 10 MG TABLET PO SCH (17:16)
[2021-08-06 19:26] VITALS: TEMP 98.1
[2021-08-06] MEDS: hydrOXYzine pamoate 25 MG CAPSULE PO PRN (20:35)
[2021-08-07 07:33] VITALS: BP 133/79; PULSE 62; RESP 18
[2021-08-07] MEDS: Loratadine 10 MG TABLET PO SCH (08:20)
[2021-08-07] MEDS: Levothyroxine 25 MCG TABLET PO SCH (08:20)
[2021-08-07] MEDS: Aspirin 81 MG TAB.CHEW PO SCH (08:20)
[2021-08-07] MEDS: Gabapentin 400 MG CAPSULE PO SCH (08:21)
[2021-08-07] MEDS: Furosemide 20 MG TABLET PO SCH (08:21)
[2021-08-07] MEDS: DilTIAZem CD (24hr) 240 MG CAP.ER.24H PO SCH (08:21)
[2021-08-07] MEDS: carvediloL 6.25 MG TABLET PO SCH (08:22)
[2021-08-07] MEDS: Nystatin POWDER 30 GM BOTTLE TP SCH (08:22)
[2021-08-07] MEDS: Insulin LISPRO 300 UNITS/3 ML VIAL SUBQ SCH (08:23)
[2021-08-07] MEDS: Budesonide/Formoterol 160/4.5 1 PUFF INH IH SCH (09:41)
[2021-08-07 09:44] VITALS: O2SAT 92
== END 2021-08-07 12:05 | disposition home health service (06) | DRG 189 ==
LOC: INPPIK 08-02 18:43
PROVIDERS: ADMIT Internal Medicine; ATTEND Internal Medicine

== ENCOUNTER 2021-10-07 14:29 | Inpatient (IN) ==
[2021-10-07 15:01] LABS: Bilirubin,Urine Negative (Negative); Blood,Urine Negative (Negative); Clarity,Urine Clear (Clear); Color,Urine Yellow (Yellow); Glucose,Urine (UA) Normal (Normal); Ketones,Urine Negative (Negative); Leukocyte Esterase,Urine Negative (Negative); Nitrite,Urine Negative (Negative); PH,Urine 6.5 pH Units (5.0-8.0); Protein,Urine Negative (Neg-Trace); Urobilinogen,Urine Normal (Normal)
[2021-10-07 15:28] LABS: Basophils % 0.3 %; Eosinophils # 0.1 K/mcL (0.0-0.6); Eosinophils % 1.9 %; Hemoglobin 7.1 g/dL (11.5-15.4); Immature Granulocytes % 0.6 % (0-4); Lymphocytes # 1.1 K/mcL (0.6-4.6); Lymphocytes % 16.6 %; Mean Corpuscular HGB Conc 27.3 g/dL (31.6-35.5); Mean Corpuscular Hemoglobin 24.1 pg (28.0-33.3); Mean Corpuscular Volume 88.1 fL (83.0-100.0); Mean Platelet Volume 10.5 fL (9.4-12.4); Monocytes # 0.6 K/mcL (0.0-1.3); Monocytes % 9.8 %; Neutrophils # 4.5 K/mcL (1.6-8.9); Platelet Count 179 K/mcL (140-400); Red Blood Count 2.95 M/mcL (3.82-4.97); Red Cell Distribution Width 14.8 % (11.5-14.5); Segmented Neutrophils % 70.8 %; White Blood Count 6.3 K/mcL (4.3-11.1)
[2021-10-07 15:37] LABS: INR 1.2; Prothrombin Time 13.6 Seconds (9.4-12.1)
[2021-10-07 15:40] LABS: Activated Partial Thrombo Time 28.5 Seconds (26.0-36.0)
[2021-10-07 15:44] LABS: ABG Base Excess 11 mEq/L (-2 to 3); ABG HCO3 40 mEq/L (21-27); ABG Oxygen Saturation 90 % (95-98); ABG PCO2 79 mmHg (35-45); ABG PH 7.31 pH Units (7.32-7.45); ABG PO2 68 mmHg (85-104); ABG TCO2 42 mEq/L (20-26)
[2021-10-07 15:54] LABS: Microcytosis Present (Not Present); Platelet Estimate Normal (Normal)
[2021-10-07 15:56] LABS: Alanine Aminotransferase 10 Units/L (7-52); Albumin 3.3 g/dL (3.5-5.7); Albumin/Globulin Ratio 1.1 (1.1-2.2); Alkaline Phosphatase 101 Units/L (34-104); Aspartate Amino Transferase 8 Units/L (13-39); BUN/Creatinine Ratio 17 (6-26); Bilirubin,Total 0.4 mg/dL (0.3-1.0); Blood Urea Nitrogen 18 mg/dL (8-23); Calcium 8.3 mg/dL (8.6-10.3); Carbon Dioxide 41 mEq/L (23-29); Chloride 92 mEq/L (98-107); Glucose 175 mg/dL (70-105); Magnesium 1.5 mg/dL (1.6-2.6); Osmolality,Calculated 288 (280-300); Potassium 4.6 mEq/L (3.5-5.1); Sodium 136 mEq/L (136-145); Total Protein 6.3 g/dL (6.4-8.9); Troponin I < 0.03 ng/mL (< 0.04); eGFR For African Americans > 60 (> 60); eGFR For Non-African Americans 52 (> 60)
[2021-10-07 16:59] LABS: ABG Base Excess 11 mEq/L (-2 to 3); ABG HCO3 40 mEq/L (21-27); ABG Oxygen Saturation 95 % (95-98); ABG PCO2 78 mmHg (35-45); ABG PH 7.32 pH Units (7.32-7.45); ABG PO2 88 mmHg (85-104); ABG TCO2 42 mEq/L (20-26)
[2021-10-07] MEDS ORDERED: Naloxone 0.4 MG/ML INJ IVP PRN ×2 (17:32→19:55)
[2021-10-07] MEDS ORDERED: Melatonin 3 MG TABLET PO PRN (17:32)
[2021-10-07] MEDS ORDERED: Simethicone 80 MG TAB.CHEW PO PRN (17:35)
[2021-10-07] MEDS ORDERED: Ondansetron ODT 4 MG TAB.RAPDIS SL PRN (17:35)
[2021-10-07] MEDS ORDERED: *HR* Dextrose 50 % in Water (Syg) 50 ML SYRINGE IVP PRN (17:47)
[2021-10-07] MEDS ORDERED: Dextrose Gel 15 GM/37.5 ML TUBE PO PRN ×2 (17:47)
[2021-10-07] MEDS ORDERED: D5% in Water 1,000 ML IVC PRN (17:47)
[2021-10-07 19:27] LABS: ABG Base Excess 13 mEq/L (-2 to 3); ABG HCO3 41 mEq/L (21-27); ABG Oxygen Saturation 94 % (95-98); ABG PCO2 78 mmHg (35-45); ABG PH 7.33 pH Units (7.32-7.45); ABG PO2 82 mmHg (85-104); ABG TCO2 43 mEq/L (20-26)
[2021-10-07] MEDS ORDERED: 0.9 % Sodium Chloride 250 ML IVC SCH (20:00)
[2021-10-07] MEDS: Levalbuterol 1 PUFF INHALER IH SCH (20:10)
[2021-10-07] MEDS: Budesonide/Formoterol 160/4.5 1 PUFF INH IH SCH (20:10)
[2021-10-07] MEDS: Ipratropium 1 PUFF INHALER IH SCH (20:11)
[2021-10-07] MEDS: Gabapentin 400 MG CAPSULE PO SCH (20:41)
[2021-10-07] MEDS: Nystatin POWDER 30 GM BOTTLE TP SCH (20:42)
[2021-10-07] MEDS: Nicotine 21 MG PATCH.TD24 TD SCH (20:44)
[2021-10-07] MEDS: Insulin LISPRO 300 UNITS/3 ML VIAL SUBQ SCH (20:45)
[2021-10-07 21:31] LABS: Adenovirus Not Detected (Not Detect); Bordetella Pertussis Not Detected (Not Detect); Chlamydophila pneumoniae Not Detected (Not Detect); Coronavirus 229E Not Detected (Not Detect); Coronavirus HKU1 Not Detected (Not Detect); Coronavirus NL63 Not Detected (Not Detect); Coronavirus OC43 Not Detected (Not Detect); Human Metapneumovirus Not Detected (Not Detect); Human Rhinovirus/Enterovirus Not Detected (Not Detect); Influenza A Subtype 2009 H1 Not Detected (Not Detect); Influenza B Not Detected (Not Detect); Mycoplasma pneumoniae Not Detected (Not Detect); Parainfluenza Virus 1 Not Detected (Not Detect); Parainfluenza Virus 2 Not Detected (Not Detect); Parainfluenza Virus 3 Not Detected (Not Detect); Parainfluenza Virus 4 Not Detected (Not Detect); Respiratory Syncytial Virus Not Detected (Not Detect); SARS-CoV-2 Not Detected (Not Detect)
[2021-10-08] MEDS: Levalbuterol 1 PUFF INHALER IH SCH ×6 (00:05→20:02)
[2021-10-08] MEDS: Ipratropium 1 PUFF INHALER IH SCH ×6 (00:06→20:03)
[2021-10-08] MEDS: hydrOXYzine pamoate 25 MG CAPSULE PO PRN ×2 (03:08→21:05)
[2021-10-08] MEDS: Levothyroxine 25 MCG TABLET PO SCH (06:09)
[2021-10-08] MEDS: Nystatin POWDER 30 GM BOTTLE TP SCH ×3 (08:09→20:56)
[2021-10-08] MEDS: DilTIAZem CD (24hr) 240 MG CAP.ER.24H PO SCH (08:09)
[2021-10-08] MEDS: carvediloL 6.25 MG TABLET PO SCH ×2 (08:10→16:55)
[2021-10-08] MEDS: Aspirin 81 MG TAB.CHEW PO SCH (08:10)
[2021-10-08] MEDS: Loratadine 10 MG TABLET PO SCH (08:10)
[2021-10-08] MEDS: Insulin LISPRO 300 UNITS/3 ML VIAL SUBQ SCH ×4 (08:10→20:50)
[2021-10-08] MEDS: Gabapentin 400 MG CAPSULE PO SCH ×2 (08:10→20:55)
[2021-10-08] MEDS: Nicotine 21 MG PATCH.TD24 TD SCH (08:12)
[2021-10-08] MEDS: Budesonide/Formoterol 160/4.5 1 PUFF INH IH SCH ×2 (08:49→20:04)
[2021-10-08] MEDS ORDERED: NON-FORMULARY MEDICATION 1 EACH EACH (Omega-3/Dha/Epa/Fish Oil [Fish Oil 1,000 Mg Softgel] PO SCH (09:00)
[2021-10-08] MEDS ORDERED: Furosemide 20 MG TABLET PO SCH ×2 (09:00)
[2021-10-08 09:22] LABS: Basophils % 0.4 %; Eosinophils # 0.1 K/mcL (0.0-0.6); Eosinophils % 2.6 %; Hematocrit 30.5 % (35.3-44.9); Hemoglobin 8.5 g/dL (11.5-15.4); Immature Granulocytes % 0.4 % (0-4); Lymphocytes # 1.1 K/mcL (0.6-4.6); Lymphocytes % 20.8 %; Mean Corpuscular HGB Conc 27.9 g/dL (31.6-35.5); Mean Corpuscular Hemoglobin 24.4 pg (28.0-33.3); Mean Corpuscular Volume 87.6 fL (83.0-100.0); Mean Platelet Volume 10.3 fL (9.4-12.4); Monocytes # 0.6 K/mcL (0.0-1.3); Monocytes % 11.3 %; Neutrophils # 3.3 K/mcL (1.6-8.9); Platelet Count 181 K/mcL (140-400); Red Blood Count 3.48 M/mcL (3.82-4.97); Red Cell Distribution Width 14.7 % (11.5-14.5); Segmented Neutrophils % 64.5 %
[2021-10-08 09:57] LABS: BUN/Creatinine Ratio 16 (6-26); Blood Urea Nitrogen 15 mg/dL (8-23); Carbon Dioxide 41 mEq/L (23-29); Chloride 95 mEq/L (98-107); Glucose 140 mg/dL (70-105); Magnesium 1.6 mg/dL (1.6-2.6); Osmolality,Calculated 291 (280-300); Potassium 4.4 mEq/L (3.5-5.1); Sodium 139 mEq/L (136-145); eGFR For African Americans > 60 (> 60); eGFR For Non-African Americans 58 (> 60)
[2021-10-08 16:20] LABS: Anisocytosis 1+ (Not Present); Platelet Estimate Normal (Normal)
[2021-10-08] MEDS: Furosemide 20 MG TABLET PO SCH (16:55)
[2021-10-08] MEDS: *HR* Rivaroxaban 10 MG TABLET PO SCH (16:55)
[2021-10-09] MEDS: Levalbuterol 1 PUFF INHALER IH SCH ×6 (00:26→20:22)
[2021-10-09] MEDS: Ipratropium 1 PUFF INHALER IH SCH ×6 (00:26→20:22)
[2021-10-09 04:37] LABS: ABG Base Excess 11 mEq/L (-2 to 3); ABG HCO3 40 mEq/L (21-27); ABG Oxygen Saturation 84 % (95-98); ABG PCO2 74 mmHg (35-45); ABG PH 7.34 pH Units (7.32-7.45); ABG PO2 54 mmHg (85-104); ABG TCO2 42 mEq/L (20-26); Blood Gas Modality BiLevel; Blood Gas Pressure Support 4 cm H2O
[2021-10-09 05:45] LABS: BUN/Creatinine Ratio 17 (6-26); Blood Urea Nitrogen 17 mg/dL (8-23); Calcium 9.1 mg/dL (8.6-10.3); Carbon Dioxide 42 mEq/L (23-29); Chloride 93 mEq/L (98-107); Glucose 164 mg/dL (70-105); Magnesium 1.9 mg/dL (1.6-2.6); Osmolality,Calculated 293 (280-300); Potassium 4.2 mEq/L (3.5-5.1); Sodium 139 mEq/L (136-145); eGFR For African Americans > 60 (> 60); eGFR For Non-African Americans 55 (> 60)
[2021-10-09] MEDS: Levothyroxine 25 MCG TABLET PO SCH (06:45)
[2021-10-09] MEDS: carvediloL 6.25 MG TABLET PO SCH ×2 (07:53→16:50)
[2021-10-09] MEDS: Furosemide 20 MG TABLET PO SCH (07:53)
[2021-10-09] MEDS: Insulin LISPRO 300 UNITS/3 ML VIAL SUBQ SCH ×4 (07:54→20:50)
[2021-10-09] MEDS: Budesonide/Formoterol 160/4.5 1 PUFF INH IH SCH ×2 (08:41→20:23)
[2021-10-09] MEDS: DilTIAZem CD (24hr) 240 MG CAP.ER.24H PO SCH (09:44)
[2021-10-09] MEDS: Aspirin 81 MG TAB.CHEW PO SCH (09:44)
[2021-10-09] MEDS: Nicotine 21 MG PATCH.TD24 TD SCH (09:44)
[2021-10-09] MEDS: Gabapentin 400 MG CAPSULE PO SCH ×2 (09:44→20:50)
[2021-10-09] MEDS: Loratadine 10 MG TABLET PO SCH (09:44)
[2021-10-09] MEDS: Nystatin POWDER 30 GM BOTTLE TP SCH ×3 (09:45→20:52)
[2021-10-09] MEDS ORDERED: *HR* Metoprolol 5 MG/5 ML VIAL IVP ONE (11:41)
[2021-10-09] MEDS ORDERED: DilTIAZem CD (24hr) 120 MG CAP.ER.24H PO ONE (13:47)
[2021-10-09] MEDS: *HR* Rivaroxaban 10 MG TABLET PO SCH (16:50)
[2021-10-09] MEDS: Furosemide 20 MG/2 ML VIAL IVP SCH (20:50)
[2021-10-10] MEDS: Ipratropium 1 PUFF INHALER IH SCH ×6 (00:11→20:21)
[2021-10-10] MEDS: Levalbuterol 1 PUFF INHALER IH SCH ×6 (00:11→20:21)
[2021-10-10] MEDS: Levothyroxine 25 MCG TABLET PO SCH (06:17)
[2021-10-10 07:49] LABS: Hematocrit 31.5 % (35.3-44.9); Hemoglobin 8.7 g/dL (11.5-15.4); Mean Corpuscular HGB Conc 27.6 g/dL (31.6-35.5); Mean Corpuscular Hemoglobin 24.1 pg (28.0-33.3); Mean Corpuscular Volume 87.3 fL (83.0-100.0); Mean Platelet Volume 9.7 fL (9.4-12.4); Platelet Count 184 K/mcL (140-400); Red Blood Count 3.61 M/mcL (3.82-4.97); Red Cell Distribution Width 15.2 % (11.5-14.5); White Blood Count 6.4 K/mcL (4.3-11.1)
[2021-10-10 08:15] LABS: BUN/Creatinine Ratio 15 (6-26); Blood Urea Nitrogen 15 mg/dL (8-23); Calcium 8.8 mg/dL (8.6-10.3); Carbon Dioxide 42 mEq/L (23-29); Chloride 92 mEq/L (98-107); Glucose 148 mg/dL (70-105); Magnesium 1.7 mg/dL (1.6-2.6); Osmolality,Calculated 292 (280-300); Potassium 4.2 mEq/L (3.5-5.1); Sodium 139 mEq/L (136-145); eGFR For African Americans > 60 (> 60); eGFR For Non-African Americans 56 (> 60)
[2021-10-10] MEDS: Aspirin 81 MG TAB.CHEW PO SCH (08:34)
[2021-10-10] MEDS: Loratadine 10 MG TABLET PO SCH (08:34)
[2021-10-10] MEDS: Gabapentin 400 MG CAPSULE PO SCH ×2 (08:34→20:05)
[2021-10-10] MEDS: Nystatin POWDER 30 GM BOTTLE TP SCH ×3 (08:34→20:05)
[2021-10-10] MEDS: Insulin LISPRO 300 UNITS/3 ML VIAL SUBQ SCH ×4 (08:35→20:05)
[2021-10-10] MEDS: carvediloL 6.25 MG TABLET PO SCH ×2 (08:35→16:37)
[2021-10-10] MEDS: Furosemide 20 MG/2 ML VIAL IVP SCH ×2 (08:36→20:05)
[2021-10-10] MEDS: Budesonide/Formoterol 160/4.5 1 PUFF INH IH SCH ×2 (08:51→20:20)
[2021-10-10] MEDS ORDERED: DilTIAZem CD (24hr) 180 MG CAP.ER.24H PO SCH (09:00)
[2021-10-10] MEDS: *HR* Rivaroxaban 10 MG TABLET PO SCH (16:37)
[2021-10-11] MEDS: Ipratropium 1 PUFF INHALER IH SCH ×7 (00:20→23:22)
[2021-10-11] MEDS: Levalbuterol 1 PUFF INHALER IH SCH ×7 (00:20→23:22)
[2021-10-11] MEDS: hydrOXYzine pamoate 25 MG CAPSULE PO PRN ×2 (01:02→14:22)
[2021-10-11 07:44] LABS: Basophils % 0.2 %; Eosinophils # 0.2 K/mcL (0.0-0.6); Eosinophils % 3.7 %; Hematocrit 30.3 % (35.3-44.9); Hemoglobin 8.5 g/dL (11.5-15.4); Immature Granulocytes % 0.4 % (0-4); Lymphocytes % 18.4 %; Mean Corpuscular HGB Conc 28.1 g/dL (31.6-35.5); Mean Corpuscular Hemoglobin 24.7 pg (28.0-33.3); Mean Corpuscular Volume 88.1 fL (83.0-100.0); Mean Platelet Volume 9.9 fL (9.4-12.4); Monocytes # 0.7 K/mcL (0.0-1.3); Monocytes % 12.5 %; Neutrophils # 3.5 K/mcL (1.6-8.9); Platelet Count 185 K/mcL (140-400); Red Blood Count 3.44 M/mcL (3.82-4.97); Red Cell Distribution Width 15.3 % (11.5-14.5); Segmented Neutrophils % 64.8 %; White Blood Count 5.4 K/mcL (4.3-11.1)
[2021-10-11] MEDS: Budesonide/Formoterol 160/4.5 1 PUFF INH IH SCH ×2 (08:01→20:27)
[2021-10-11] MEDS: Gabapentin 400 MG CAPSULE PO SCH ×2 (08:11→22:15)
[2021-10-11] MEDS: Aspirin 81 MG TAB.CHEW PO SCH (08:12)
[2021-10-11] MEDS: Loratadine 10 MG TABLET PO SCH (08:13)
[2021-10-11] MEDS: carvediloL 6.25 MG TABLET PO SCH ×2 (08:13→17:21)
[2021-10-11] MEDS: Furosemide 20 MG/2 ML VIAL IVP SCH (08:13)
[2021-10-11] MEDS: Levothyroxine 25 MCG TABLET PO SCH (08:13)
[2021-10-11] MEDS: Insulin LISPRO 300 UNITS/3 ML VIAL SUBQ SCH ×4 (08:14→19:27)
[2021-10-11] MEDS ORDERED: DilTIAZem CD (24hr) 240 MG CAP.ER.24H PO SCH (09:00)
[2021-10-11 09:21] LABS: BUN/Creatinine Ratio 16 (6-26); Blood Urea Nitrogen 17 mg/dL (8-23); Calcium 8.8 mg/dL (8.6-10.3); Carbon Dioxide 45 mEq/L (23-29); Chloride 92 mEq/L (98-107); Glucose 169 mg/dL (70-105); Osmolality,Calculated 295 (280-300); Potassium 3.7 mEq/L (3.5-5.1); Sodium 140 mEq/L (136-145); eGFR For African Americans > 60 (> 60); eGFR For Non-African Americans 53 (> 60)
[2021-10-11 12:27] LABS: ABG Base Excess 12 mEq/L (-2 to 3); ABG HCO3 40 mEq/L (21-27); ABG Oxygen Saturation 92 % (95-98); ABG PCO2 76 mmHg (35-45); ABG PH 7.33 pH Units (7.32-7.45); ABG PO2 71 mmHg (85-104); ABG TCO2 43 mEq/L (20-26)
[2021-10-11] MEDS: Nystatin POWDER 30 GM BOTTLE TP SCH ×3 (14:24→22:17)
[2021-10-11] MEDS: *HR* Rivaroxaban 10 MG TABLET PO SCH (17:21)
[2021-10-11] MEDS ORDERED: acetaZOLAMIDE 250 MG TABLET PO SCH (21:00)
[2021-10-11] MEDS ORDERED: Ondansetron 4 MG/2 ML VIAL IVP PRN (22:51)
[2021-10-11] MEDS ORDERED: Iopamidol - 370 500 ML MLS IVP ONE (23:06)
[2021-10-11 23:18] VITALS: BP 155/72; PULSE 66; TEMP 98.9
[2021-10-11 23:33] VITALS: RESP 16; O2SAT 94
[2021-10-12] MEDS ORDERED: *HR* Promethazine 25 MG/ML VIAL IM ONE (02:10)
[2021-10-12] MEDS: Ipratropium 1 PUFF INHALER IH SCH (03:50)
[2021-10-12] MEDS: Levalbuterol 1 PUFF INHALER IH SCH (03:50)
== END 2021-10-12 03:53 | disposition short-term general hospital (02) | DRG 189 ==
LOC: EMEROOPIK 14:29 → INPPIK 14:29
PROVIDERS: ADMIT Internal Medicine; ATTEND Internal Medicine

== ENCOUNTER 2021-10-15 15:56 | Inpatient (IN) ==
[2021-10-15] MEDS: *HR* HYDROcodone/Acet 5/325 mg TABLET PO PRN (21:33)
[2021-10-15] MEDS ORDERED: Acetaminophen 325 MG TABLET PO PRN (22:26)
[2021-10-15] MEDS ORDERED: Simethicone 80 MG TAB.CHEW PO PRN (22:26)
[2021-10-15] MEDS ORDERED: Dextrose Gel 15 GM/37.5 ML TUBE PO PRN ×2 (22:29)
[2021-10-15] MEDS ORDERED: D5% in Water 1,000 ML IVC PRN (22:29)
[2021-10-15] MEDS ORDERED: *HR* Dextrose 50 % in Water (Syg) 50 ML SYRINGE IVP PRN (22:29)
[2021-10-15] MEDS ORDERED: Nystatin POWDER 30 GM BOTTLE TP PRN (22:31)
[2021-10-16] MEDS: hydrOXYzine pamoate 25 MG CAPSULE PO PRN ×3 (00:25→20:24)
[2021-10-16] MEDS ORDERED: Albuterol 2.5 MG/3 ML NEBULIZER ONE (00:55)
[2021-10-16] MEDS: Albuterol 2.5 MG/3 ML NEBULIZER IH SCH ×3 (00:57→16:48)
[2021-10-16] MEDS ORDERED: VISINE TEARS DROPS 15 ML BOTH EYES PRN (01:11)
[2021-10-16] MEDS: Fluticasone Propionate Nasal 50 MCG/SPRAY BOTTLE NS SCH ×2 (01:13→09:16)
[2021-10-16] MEDS: *HR* HYDROcodone/Acet 5/325 mg TABLET PO PRN ×2 (04:19→20:24)
[2021-10-16] MEDS: Levothyroxine 25 MCG TABLET PO SCH (05:33)
[2021-10-16] MEDS: carvediloL 25 MG TABLET PO SCH ×2 (06:28→16:24)
[2021-10-16] MEDS: (Fish Oil 1,000 Mg Softgel) PO SCH (07:27)
[2021-10-16 07:41] LABS: Basophils % 0.4 %; Eosinophils # 0.1 K/mcL (0.0-0.6); Eosinophils % 1.6 %; Hematocrit 30.6 % (35.3-44.9); Hemoglobin 10.1 g/dL (11.5-15.4); Immature Granulocytes % 0.4 % (0-4); Lymphocytes # 1.2 K/mcL (0.6-4.6); Lymphocytes % 21.8 %; Mean Corpuscular Hemoglobin 28.3 pg (28.0-33.3); Mean Corpuscular Volume 85.7 fL (83.0-100.0); Mean Platelet Volume 9.6 fL (9.4-12.4); Monocytes # 0.7 K/mcL (0.0-1.3); Monocytes % 11.7 %; Neutrophils # 3.6 K/mcL (1.6-8.9); Platelet Count 231 K/mcL (140-400); Red Blood Count 3.57 M/mcL (3.82-4.97); Red Cell Distribution Width 15.2 % (11.5-14.5); Segmented Neutrophils % 64.1 %; White Blood Count 5.6 K/mcL (4.3-11.1)
[2021-10-16 07:54] LABS: BUN/Creatinine Ratio 20 (6-26); Blood Urea Nitrogen 17 mg/dL (8-23); Calcium 9.2 mg/dL (8.6-10.3); Carbon Dioxide 37 mEq/L (23-29); Chloride 97 mEq/L (98-107); Glucose 146 mg/dL (70-105); Osmolality,Calculated 292 (280-300); Potassium 3.1 mEq/L (3.5-5.1); Sodium 139 mEq/L (136-145); eGFR For African Americans > 60 (> 60); eGFR For Non-African Americans > 60 (> 60)
[2021-10-16] MEDS: Aspirin 81 MG TAB.CHEW PO SCH (09:15)
[2021-10-16] MEDS: Gabapentin 400 MG CAPSULE PO SCH ×3 (09:15→20:24)
[2021-10-16] MEDS: *HR* Metformin 500 MG TABLET PO SCH ×2 (09:15→16:24)
[2021-10-16] MEDS: Loratadine 10 MG TABLET PO SCH (09:15)
[2021-10-16] MEDS: predniSONE 20 MG TABLET PO SCH (09:15)
[2021-10-16] MEDS: DilTIAZem CD (24hr) 240 MG CAP.ER.24H PO SCH (09:15)
[2021-10-16] MEDS: Artificial Tears SOLN 15 ML BOTTLE BOTH EYES SCH ×4 (09:16→20:24)
[2021-10-16] MEDS: Furosemide 40 MG TABLET PO SCH (09:16)
[2021-10-16] MEDS: Insulin LISPRO 300 UNITS/3 ML VIAL SUBQ SCH ×4 (09:18→21:26)
[2021-10-16] MEDS: Budesonide/Formoterol 160/4.5 1 PUFF INH IH SCH ×2 (10:57→21:01)
[2021-10-16] MEDS: *HR* Rivaroxaban 10 MG TABLET PO SCH (16:24)
[2021-10-16] MEDS ORDERED: Insulin LISPRO 300 UNITS/3 ML VIAL SUBQ SCH (21:00)
[2021-10-17] MEDS: Albuterol 2.5 MG/3 ML NEBULIZER IH SCH ×3 (02:27→18:03)
[2021-10-17] MEDS: Levothyroxine 25 MCG TABLET PO SCH (06:17)
[2021-10-17 06:48] LABS: BUN/Creatinine Ratio 25 (6-26); Blood Urea Nitrogen 22 mg/dL (8-23); Calcium 9.2 mg/dL (8.6-10.3); Carbon Dioxide 37 mEq/L (23-29); Chloride 97 mEq/L (98-107); Glucose 122 mg/dL (70-105); Osmolality,Calculated 297 (280-300); Potassium 3.6 mEq/L (3.5-5.1); Sodium 141 mEq/L (136-145); eGFR For African Americans > 60 (> 60); eGFR For Non-African Americans > 60 (> 60)
[2021-10-17] MEDS: Insulin LISPRO 300 UNITS/3 ML VIAL SUBQ SCH ×4 (07:28→19:39)
[2021-10-17] MEDS: Aspirin 81 MG TAB.CHEW PO SCH (08:05)
[2021-10-17] MEDS: DilTIAZem CD (24hr) 240 MG CAP.ER.24H PO SCH (08:06)
[2021-10-17] MEDS: Gabapentin 400 MG CAPSULE PO SCH ×3 (08:06→19:39)
[2021-10-17] MEDS: *HR* Metformin 500 MG TABLET PO SCH ×2 (08:06→16:35)
[2021-10-17] MEDS: (Fish Oil 1,000 Mg Softgel) PO SCH (08:06)
[2021-10-17] MEDS: Loratadine 10 MG TABLET PO SCH (08:06)
[2021-10-17] MEDS: Furosemide 40 MG TABLET PO SCH (08:06)
[2021-10-17] MEDS: carvediloL 25 MG TABLET PO SCH ×2 (08:06→16:35)
[2021-10-17] MEDS: predniSONE 20 MG TABLET PO SCH (08:06)
[2021-10-17] MEDS: *HR* HYDROcodone/Acet 5/325 mg TABLET PO PRN ×3 (08:08→21:19)
[2021-10-17] MEDS: Fluticasone Propionate Nasal 50 MCG/SPRAY BOTTLE NS SCH (08:09)
[2021-10-17] MEDS: Artificial Tears SOLN 15 ML BOTTLE BOTH EYES SCH ×4 (08:09→19:38)
[2021-10-17] MEDS: Budesonide/Formoterol 160/4.5 1 PUFF INH IH SCH ×2 (09:07→21:02)
[2021-10-17 09:59] LABS: Estimated Average Glucose 146 mg/dl; Hemoglobin A1C 6.7 %
[2021-10-17] MEDS: *HR* Rivaroxaban 10 MG TABLET PO SCH (16:35)
[2021-10-18] MEDS: Albuterol 2.5 MG/3 ML NEBULIZER IH SCH ×3 (01:42→17:29)
[2021-10-18] MEDS: Levothyroxine 25 MCG TABLET PO SCH (06:08)
[2021-10-18] MEDS: Gabapentin 400 MG CAPSULE PO SCH ×3 (07:27→21:43)
[2021-10-18] MEDS: *HR* Metformin 500 MG TABLET PO SCH ×2 (07:28→15:51)
[2021-10-18] MEDS: Furosemide 40 MG TABLET PO SCH (07:28)
[2021-10-18] MEDS: DilTIAZem CD (24hr) 240 MG CAP.ER.24H PO SCH (07:28)
[2021-10-18] MEDS: Aspirin 81 MG TAB.CHEW PO SCH (07:28)
[2021-10-18] MEDS: *HR* HYDROcodone/Acet 5/325 mg TABLET PO PRN ×3 (07:28→21:43)
[2021-10-18] MEDS: Loratadine 10 MG TABLET PO SCH (07:28)
[2021-10-18] MEDS: carvediloL 25 MG TABLET PO SCH ×2 (07:29→15:50)
[2021-10-18] MEDS: Artificial Tears SOLN 15 ML BOTTLE BOTH EYES SCH ×4 (07:33→22:40)
[2021-10-18] MEDS: Fluticasone Propionate Nasal 50 MCG/SPRAY BOTTLE NS SCH (07:33)
[2021-10-18] MEDS: Insulin LISPRO 300 UNITS/3 ML VIAL SUBQ SCH ×4 (07:34→21:44)
[2021-10-18] MEDS: Budesonide/Formoterol 160/4.5 1 PUFF INH IH SCH ×2 (08:53→20:39)
[2021-10-18] MEDS: (Fish Oil 1,000 Mg Softgel) PO SCH (09:08)
[2021-10-18] MEDS: predniSONE 10 MG TABLET PO SCH (09:37)
[2021-10-18] MEDS: *HR* Rivaroxaban 10 MG TABLET PO SCH (15:51)
[2021-10-18] MEDS ORDERED: Sennosides/Docusate Sodium TABLET PO PRN (19:45)
[2021-10-19] MEDS: Albuterol 2.5 MG/3 ML NEBULIZER IH SCH ×3 (01:35→15:42)
[2021-10-19] MEDS: Levothyroxine 25 MCG TABLET PO SCH (05:37)
[2021-10-19] MEDS: Aspirin 81 MG TAB.CHEW PO SCH (08:49)
[2021-10-19] MEDS: Gabapentin 400 MG CAPSULE PO SCH ×3 (08:49→20:25)
[2021-10-19] MEDS: DilTIAZem CD (24hr) 240 MG CAP.ER.24H PO SCH (08:49)
[2021-10-19] MEDS: Fluticasone Propionate Nasal 50 MCG/SPRAY BOTTLE NS SCH (08:51)
[2021-10-19] MEDS: carvediloL 25 MG TABLET PO SCH ×2 (08:51→16:10)
[2021-10-19] MEDS: *HR* HYDROcodone/Acet 5/325 mg TABLET PO PRN ×2 (08:52→16:17)
[2021-10-19] MEDS: *HR* Metformin 500 MG TABLET PO SCH ×2 (08:53→16:10)
[2021-10-19] MEDS: Loratadine 10 MG TABLET PO SCH (08:53)
[2021-10-19] MEDS: Furosemide 40 MG TABLET PO SCH (08:53)
[2021-10-19] MEDS: predniSONE 10 MG TABLET PO SCH (08:54)
[2021-10-19] MEDS: Artificial Tears SOLN 15 ML BOTTLE BOTH EYES SCH ×4 (08:55→20:27)
[2021-10-19] MEDS: (Fish Oil 1,000 Mg Softgel) PO SCH (08:55)
[2021-10-19] MEDS: Insulin LISPRO 300 UNITS/3 ML VIAL SUBQ SCH ×4 (08:58→20:32)
[2021-10-19] MEDS: Budesonide/Formoterol 160/4.5 1 PUFF INH IH SCH ×2 (09:21→23:01)
[2021-10-19] MEDS: *HR* Rivaroxaban 10 MG TABLET PO SCH (16:10)
[2021-10-20] MEDS: *HR* HYDROcodone/Acet 5/325 mg TABLET PO PRN ×4 (02:31→23:10)
[2021-10-20] MEDS: Albuterol 2.5 MG/3 ML NEBULIZER IH PRN ×2 (02:45→09:09)
[2021-10-20] MEDS: Levothyroxine 25 MCG TABLET PO SCH (06:15)
[2021-10-20] MEDS: Insulin LISPRO 300 UNITS/3 ML VIAL SUBQ SCH ×4 (09:00→20:29)
[2021-10-20] MEDS: DilTIAZem CD (24hr) 240 MG CAP.ER.24H PO SCH (09:01)
[2021-10-20] MEDS: Gabapentin 400 MG CAPSULE PO SCH ×3 (09:01→20:00)
[2021-10-20] MEDS: Aspirin 81 MG TAB.CHEW PO SCH (09:01)
[2021-10-20] MEDS: *HR* Metformin 500 MG TABLET PO SCH ×2 (09:01→16:08)
[2021-10-20] MEDS: Fluticasone Propionate Nasal 50 MCG/SPRAY BOTTLE NS SCH (09:02)
[2021-10-20] MEDS: Furosemide 40 MG TABLET PO SCH (09:02)
[2021-10-20] MEDS: Artificial Tears SOLN 15 ML BOTTLE BOTH EYES SCH ×4 (09:02→20:00)
[2021-10-20] MEDS: Loratadine 10 MG TABLET PO SCH (09:02)
[2021-10-20] MEDS: predniSONE 20 MG TABLET PO SCH (09:02)
[2021-10-20] MEDS: carvediloL 25 MG TABLET PO SCH ×2 (09:02→16:08)
[2021-10-20] MEDS: (Fish Oil 1,000 Mg Softgel) PO SCH (09:03)
[2021-10-20] MEDS: Budesonide/Formoterol 160/4.5 1 PUFF INH IH SCH ×2 (09:10→21:27)
[2021-10-20] MEDS: *HR* Rivaroxaban 10 MG TABLET PO SCH (16:09)
[2021-10-21] MEDS: Levothyroxine 25 MCG TABLET PO SCH (06:23)
[2021-10-21] MEDS: Gabapentin 400 MG CAPSULE PO SCH ×3 (08:02→19:59)
[2021-10-21] MEDS: DilTIAZem CD (24hr) 240 MG CAP.ER.24H PO SCH (08:02)
[2021-10-21] MEDS: *HR* Metformin 500 MG TABLET PO SCH ×2 (08:02→16:08)
[2021-10-21] MEDS: Aspirin 81 MG TAB.CHEW PO SCH (08:02)
[2021-10-21] MEDS: predniSONE 20 MG TABLET PO SCH (08:02)
[2021-10-21] MEDS: Insulin LISPRO 300 UNITS/3 ML VIAL SUBQ SCH ×4 (08:02→20:00)
[2021-10-21] MEDS: carvediloL 25 MG TABLET PO SCH ×2 (08:02→16:08)
[2021-10-21] MEDS: Furosemide 40 MG TABLET PO SCH (08:03)
[2021-10-21] MEDS: Artificial Tears SOLN 15 ML BOTTLE BOTH EYES SCH ×4 (08:03→19:59)
[2021-10-21] MEDS: (Fish Oil 1,000 Mg Softgel) PO SCH (08:03)
[2021-10-21] MEDS: Loratadine 10 MG TABLET PO SCH (08:03)
[2021-10-21] MEDS: Fluticasone Propionate Nasal 50 MCG/SPRAY BOTTLE NS SCH (08:03)
[2021-10-21] MEDS: Budesonide/Formoterol 160/4.5 1 PUFF INH IH SCH ×2 (09:26→21:58)
[2021-10-21] MEDS: *HR* HYDROcodone/Acet 5/325 mg TABLET PO PRN ×2 (10:07→16:12)
[2021-10-21] MEDS: *HR* Rivaroxaban 10 MG TABLET PO SCH (16:08)
[2021-10-22] MEDS: Albuterol 2.5 MG/3 ML NEBULIZER IH PRN ×2 (00:16→18:34)
[2021-10-22] MEDS: *HR* HYDROcodone/Acet 5/325 mg TABLET PO PRN ×3 (01:14→16:37)
[2021-10-22] MEDS: Levothyroxine 25 MCG TABLET PO SCH (05:39)
[2021-10-22] MEDS: Insulin LISPRO 300 UNITS/3 ML VIAL SUBQ SCH ×4 (07:20→21:08)
[2021-10-22] MEDS ORDERED: predniSONE 10 MG TABLET PO SCH (09:00)
[2021-10-22] MEDS: Loratadine 10 MG TABLET PO SCH (09:52)
[2021-10-22] MEDS: DilTIAZem CD (24hr) 240 MG CAP.ER.24H PO SCH (09:52)
[2021-10-22] MEDS: carvediloL 25 MG TABLET PO SCH ×2 (09:52→16:49)
[2021-10-22] MEDS: Gabapentin 400 MG CAPSULE PO SCH ×3 (09:52→20:07)
[2021-10-22] MEDS: Furosemide 40 MG TABLET PO SCH (09:52)
[2021-10-22] MEDS: Aspirin 81 MG TAB.CHEW PO SCH (09:52)
[2021-10-22] MEDS: *HR* Metformin 500 MG TABLET PO SCH ×2 (09:53→16:38)
[2021-10-22] MEDS: (Fish Oil 1,000 Mg Softgel) PO SCH (09:53)
[2021-10-22] MEDS: Fluticasone Propionate Nasal 50 MCG/SPRAY BOTTLE NS SCH (09:57)
[2021-10-22] MEDS: Artificial Tears SOLN 15 ML BOTTLE BOTH EYES SCH ×4 (09:58→20:08)
[2021-10-22] MEDS: Budesonide/Formoterol 160/4.5 1 PUFF INH IH SCH ×3 (11:36→20:20)
[2021-10-22] MEDS: *HR* Rivaroxaban 10 MG TABLET PO SCH (16:38)
[2021-10-22] MEDS: hydrOXYzine pamoate 25 MG CAPSULE PO PRN (21:50)
[2021-10-23] MEDS: *HR* HYDROcodone/Acet 5/325 mg TABLET PO PRN ×3 (05:12→18:14)
[2021-10-23] MEDS: Levothyroxine 25 MCG TABLET PO SCH (05:12)
[2021-10-23] MEDS: Budesonide/Formoterol 160/4.5 1 PUFF INH IH SCH ×2 (08:12→20:06)
[2021-10-23] MEDS: Albuterol 2.5 MG/3 ML NEBULIZER IH PRN (08:13)
[2021-10-23] MEDS: Gabapentin 400 MG CAPSULE PO SCH ×2 (09:06→14:58)
[2021-10-23] MEDS: Loratadine 10 MG TABLET PO SCH (09:07)
[2021-10-23] MEDS: DilTIAZem CD (24hr) 240 MG CAP.ER.24H PO SCH (09:07)
[2021-10-23] MEDS: *HR* Metformin 500 MG TABLET PO SCH ×2 (09:07→17:13)
[2021-10-23] MEDS: Aspirin 81 MG TAB.CHEW PO SCH (09:07)
[2021-10-23] MEDS: carvediloL 25 MG TABLET PO SCH ×2 (09:07→17:13)
[2021-10-23] MEDS: Artificial Tears SOLN 15 ML BOTTLE BOTH EYES SCH ×3 (09:09→17:12)
[2021-10-23] MEDS: Fluticasone Propionate Nasal 50 MCG/SPRAY BOTTLE NS SCH (09:09)
[2021-10-23] MEDS: Insulin LISPRO 300 UNITS/3 ML VIAL SUBQ SCH ×3 (09:09→16:20)
[2021-10-23] MEDS: Furosemide 40 MG TABLET PO SCH (09:09)
[2021-10-23] MEDS: (Fish Oil 1,000 Mg Softgel) PO SCH (09:10)
[2021-10-23] MEDS: *HR* Rivaroxaban 10 MG TABLET PO SCH (17:13)
[2021-10-23 20:00] VITALS: BP 102/68; PULSE 66; TEMP 97.5
[2021-10-23 20:50] VITALS: RESP 18; O2SAT 96
== END 2021-10-23 20:45 | disposition hospice, home (50) | DRG 190 ==
LOC: INPPIK 21:04
PROVIDERS: ADMIT Family Medicine; ATTEND Family Medicine

== ENCOUNTER 2021-12-03 06:08 | Inpatient (IN) ==
[2021-12-03] MEDS ORDERED: Furosemide 40 MG/4 ML VIAL IVP ONE (06:34)
[2021-12-03 07:07] LABS: Basophils % 0.1 %; Eosinophils % 0.2 %; Hematocrit 29.9 % (35.3-44.9); Hemoglobin 8.2 g/dL (11.5-15.4); Immature Granulocytes % 0.4 % (0-4); Lymphocytes % 12.5 %; Mean Corpuscular HGB Conc 27.4 g/dL (31.6-35.5); Mean Corpuscular Volume 87.7 fL (83.0-100.0); Mean Platelet Volume 10.2 fL (9.4-12.4); Monocytes # 0.8 K/mcL (0.0-1.3); Monocytes % 9.5 %; Neutrophils # 6.4 K/mcL (1.6-8.9); Platelet Count 196 K/mcL (140-400); Red Blood Count 3.41 M/mcL (3.82-4.97); Red Cell Distribution Width 15.9 % (11.5-14.5); Segmented Neutrophils % 77.3 %; White Blood Count 8.3 K/mcL (4.3-11.1)
[2021-12-03 07:23] LABS: INR 1.5; Prothrombin Time 16.9 Seconds (9.4-12.1)
[2021-12-03 07:24] LABS: Troponin I < 0.03 ng/mL (< 0.04)
[2021-12-03 07:26] LABS: Activated Partial Thrombo Time 35.2 Seconds (26.0-36.0)
[2021-12-03 07:28] LABS: Alanine Aminotransferase 14 Units/L (7-52); Albumin 3.5 g/dL (3.5-5.7); Albumin/Globulin Ratio 1.2 (1.1-2.2); Alkaline Phosphatase 68 Units/L (34-104); Aspartate Amino Transferase 10 Units/L (13-39); BUN/Creatinine Ratio 27 (6-26); Bilirubin,Total 0.3 mg/dL (0.3-1.0); Blood Urea Nitrogen 25 mg/dL (8-23); Carbon Dioxide 42 mEq/L (23-29); Chloride 93 mEq/L (98-107); Creatine Kinase 64 Units/L (30-223); Glucose 143 mg/dL (70-105); Magnesium 1.4 mg/dL (1.6-2.6); Osmolality,Calculated 299 (280-300); Phosphorous 3.4 mg/dL (2.7-4.5); Potassium 4.3 mEq/L (3.5-5.1); Sodium 141 mEq/L (136-145); Total Protein 6.5 g/dL (6.4-8.9); eGFR For African Americans > 60 (> 60); eGFR For Non-African Americans > 60 (> 60)
[2021-12-03 07:29] LABS: Bilirubin,Urine Negative (Negative); Blood,Urine Negative (Negative); Clarity,Urine Clear (Clear); Color,Urine Yellow (Yellow); Glucose,Urine (UA) Normal (Normal); Ketones,Urine Trace mg/dL (Negative); Leukocyte Esterase,Urine Negative (Negative); Nitrite,Urine Negative (Negative); Protein,Urine Negative (Neg-Trace)
[2021-12-03] MEDS ORDERED: cefTRIAXone 1,000 MG in 0.9 % Sodium Chloride Mini Bag 100 ML IVPB ONE (07:41)
[2021-12-03] MEDS: Nystatin POWDER 30 GM BOTTLE TP SCH ×4 (07:41→22:10)
[2021-12-03 07:49] LABS: Hypochromasia Present (Not Present); Platelet Estimate Normal (Normal)
[2021-12-03 07:50] LABS: Ovalocytes 1+ (Not Present)
[2021-12-03 08:26] LABS: ABG Base Excess 13 mEq/L (-2 to 3); ABG HCO3 40 mEq/L (21-27); ABG Oxygen Saturation 99 % (95-98); ABG PCO2 61 mmHg (35-45); ABG PH 7.42 pH Units (7.32-7.45); ABG PO2 145 mmHg (85-104); ABG TCO2 41 mEq/L (20-26)
[2021-12-03] MEDS ORDERED: Acetaminophen 325 MG TABLET PO PRN (09:03)
[2021-12-03] MEDS ORDERED: Naloxone 0.4 MG/ML INJ IVP PRN (09:03)
[2021-12-03] MEDS ORDERED: Ondansetron 4 MG/2 ML VIAL IVP PRN (09:03)
[2021-12-03] MEDS ORDERED: Mag Hydrox/Al Hydrox/Simeth 30 ML UDC PO PRN (09:03)
[2021-12-03] MEDS ORDERED: Simethicone 80 MG TAB.CHEW PO PRN (09:04)
[2021-12-03] MEDS ORDERED: Sennosides/Docusate Sodium TABLET PO PRN (09:04)
[2021-12-03] MEDS ORDERED: Nystatin POWDER 30 GM BOTTLE TP PRN (09:04)
[2021-12-03] MEDS ORDERED: D5% in Water 1,000 ML IVC PRN (09:09)
[2021-12-03] MEDS ORDERED: Dextrose Gel 15 GM/37.5 ML TUBE PO PRN ×2 (09:09)
[2021-12-03] MEDS ORDERED: *HR* Dextrose 50 % in Water (Syg) 50 ML SYRINGE IVP PRN (09:09)
[2021-12-03] MEDS ORDERED: Ipratropium/Albuterol Neb 3 ML IH PRN (09:10)
[2021-12-03] MEDS: carvediloL 25 MG TABLET PO SCH ×2 (09:11→18:52)
[2021-12-03] MEDS: DilTIAZem CD (24hr) 240 MG CAP.ER.24H PO SCH ×2 (09:12→10:33)
[2021-12-03] MEDS ORDERED: NON-FORMULARY MEDICATION 1 EACH EACH (Omega-3/Dha/Epa/Fish Oil [Fish Oil 1,000 Mg Softgel] PO SCH (09:15)
[2021-12-03] MEDS: Budesonide/Formoterol 160/4.5 1 PUFF INH IH SCH ×2 (09:38→21:36)
[2021-12-03] MEDS: Aspirin 81 MG TAB.CHEW PO SCH (10:47)
[2021-12-03] MEDS: Loratadine 10 MG TABLET PO SCH (10:47)
[2021-12-03] MEDS: *HR* HYDROcodone/Acet 5/325 mg TABLET PO SCH ×2 (10:47→22:08)
[2021-12-03] MEDS: Levothyroxine 25 MCG TABLET PO SCH (10:48)
[2021-12-03] MEDS: Insulin LISPRO 300 UNITS/3 ML VIAL SUBQ SCH ×3 (13:02→22:05)
[2021-12-03] MEDS: Gabapentin 400 MG CAPSULE PO SCH ×2 (15:55→22:08)
[2021-12-03] MEDS ORDERED: *HR* Rivaroxaban 10 MG TABLET PO SCH (17:00)
[2021-12-03] MEDS: *HR* Metoprolol 5 MG/5 ML VIAL IVP PRN (23:36)
[2021-12-04] MEDS: Levothyroxine 25 MCG TABLET PO SCH (06:01)
[2021-12-04 06:15] LABS: Basophils % 0.3 %; Eosinophils # 0.1 K/mcL (0.0-0.6); Eosinophils % 2.2 %; Hemoglobin 8.4 g/dL (11.5-15.4); Immature Granulocytes % 0.3 % (0-4); Lymphocytes # 1.2 K/mcL (0.6-4.6); Lymphocytes % 18.3 %; Mean Corpuscular Hemoglobin 24.6 pg (28.0-33.3); Mean Corpuscular Volume 87.7 fL (83.0-100.0); Mean Platelet Volume 10.2 fL (9.4-12.4); Monocytes # 0.6 K/mcL (0.0-1.3); Monocytes % 9.8 %; Neutrophils # 4.5 K/mcL (1.6-8.9); Platelet Count 214 K/mcL (140-400); Red Blood Count 3.42 M/mcL (3.82-4.97); Segmented Neutrophils % 69.1 %; White Blood Count 6.5 K/mcL (4.3-11.1)
[2021-12-04] MEDS: *HR* Metoprolol 5 MG/5 ML VIAL IVP PRN (06:24)
[2021-12-04] MEDS ORDERED: carvediloL 25 MG TABLET PO SCH (08:00)
[2021-12-04] MEDS: Insulin LISPRO 300 UNITS/3 ML VIAL SUBQ SCH ×4 (08:08→21:28)
[2021-12-04 08:13] LABS: BUN/Creatinine Ratio 24 (6-26); Blood Urea Nitrogen 24 mg/dL (8-23); Calcium 8.8 mg/dL (8.6-10.3); Carbon Dioxide 43 mEq/L (23-29); Chloride 93 mEq/L (98-107); Glucose 134 mg/dL (70-105); Osmolality,Calculated 300 (280-300); Sodium 142 mEq/L (136-145); eGFR For African Americans > 60 (> 60); eGFR For Non-African Americans 56 (> 60)
[2021-12-04] MEDS: *HR* HYDROcodone/Acet 5/325 mg TABLET PO SCH ×2 (08:35→21:15)
[2021-12-04] MEDS: Gabapentin 400 MG CAPSULE PO SCH ×3 (08:35→21:16)
[2021-12-04] MEDS: DilTIAZem CD (24hr) 240 MG CAP.ER.24H PO SCH (08:35)
[2021-12-04] MEDS: Loratadine 10 MG TABLET PO SCH (08:36)
[2021-12-04] MEDS: Nystatin POWDER 30 GM BOTTLE TP SCH ×3 (08:36→21:21)
[2021-12-04] MEDS: Aspirin 81 MG TAB.CHEW PO SCH (08:36)
[2021-12-04 08:42] LABS: Hypochromasia Present (Not Present); Platelet Estimate Normal (Normal)
[2021-12-04] MEDS: Budesonide/Formoterol 160/4.5 1 PUFF INH IH SCH ×2 (09:09→21:42)
[2021-12-04 09:50] LABS: ABG Base Excess 11 mEq/L (-2 to 3); ABG HCO3 39 mEq/L (21-27); ABG Oxygen Saturation 92 % (95-98); ABG PCO2 66 mmHg (35-45); ABG PH 7.37 pH Units (7.32-7.45); ABG PO2 67 mmHg (85-104); ABG TCO2 41 mEq/L (20-26)
[2021-12-04] MEDS: carvediloL 25 MG TABLET PO SCH (17:05)
[2021-12-04] MEDS: *HR* Rivaroxaban 10 MG TABLET PO SCH (17:06)
[2021-12-04] MEDS: Melatonin 3 MG TABLET PO PRN (21:20)
[2021-12-04] MEDS: Furosemide 20 MG/2 ML VIAL IVP SCH (21:21)
[2021-12-05 07:50] LABS: Hematocrit 30.1 % (35.3-44.9); Hemoglobin 8.4 g/dL (11.5-15.4); Mean Corpuscular HGB Conc 27.9 g/dL (31.6-35.5); Mean Corpuscular Hemoglobin 24.1 pg (28.0-33.3); Mean Corpuscular Volume 86.2 fL (83.0-100.0); Mean Platelet Volume 9.7 fL (9.4-12.4); Platelet Count 203 K/mcL (140-400); Red Blood Count 3.49 M/mcL (3.82-4.97); Red Cell Distribution Width 15.7 % (11.5-14.5); White Blood Count 5.1 K/mcL (4.3-11.1)
[2021-12-05] MEDS: Furosemide 20 MG/2 ML VIAL IVP SCH (08:27)
[2021-12-05] MEDS: Gabapentin 400 MG CAPSULE PO SCH ×3 (08:27→22:18)
[2021-12-05] MEDS: Aspirin 81 MG TAB.CHEW PO SCH (08:28)
[2021-12-05] MEDS: carvediloL 25 MG TABLET PO SCH ×2 (08:28→16:07)
[2021-12-05] MEDS: acetaZOLAMIDE 250 MG TABLET PO SCH ×2 (08:28→22:18)
[2021-12-05] MEDS: DilTIAZem CD (24hr) 240 MG CAP.ER.24H PO SCH (08:28)
[2021-12-05] MEDS: *HR* HYDROcodone/Acet 5/325 mg TABLET PO SCH ×2 (08:29→22:18)
[2021-12-05] MEDS: Levothyroxine 25 MCG TABLET PO SCH (08:29)
[2021-12-05] MEDS: Loratadine 10 MG TABLET PO SCH (08:30)
[2021-12-05] MEDS: Nystatin POWDER 30 GM BOTTLE TP SCH ×3 (08:30→22:18)
[2021-12-05] MEDS: Insulin LISPRO 300 UNITS/3 ML VIAL SUBQ SCH ×4 (08:35→22:19)
[2021-12-05 08:45] LABS: BUN/Creatinine Ratio 22 (6-26); Blood Urea Nitrogen 18 mg/dL (8-23); Calcium 8.7 mg/dL (8.6-10.3); Carbon Dioxide 44 mEq/L (23-29); Chloride 95 mEq/L (98-107); Glucose 144 mg/dL (70-105); Magnesium 1.7 mg/dL (1.6-2.6); Osmolality,Calculated 298 (280-300); Potassium 4.2 mEq/L (3.5-5.1); Sodium 142 mEq/L (136-145); eGFR For African Americans > 60 (> 60); eGFR For Non-African Americans > 60 (> 60)
[2021-12-05] MEDS: Budesonide/Formoterol 160/4.5 1 PUFF INH IH SCH ×2 (09:00→21:33)
[2021-12-05] MEDS ORDERED: DilTIAZem CD (24hr) 120 MG CAP.ER.24H PO ONE (09:52)
[2021-12-05] MEDS ORDERED: Furosemide 20 MG/2 ML VIAL IVP ONE (09:53)
[2021-12-05] MEDS: hydrOXYzine pamoate 25 MG CAPSULE PO PRN ×2 (10:41→22:18)
[2021-12-05] MEDS: Furosemide 40 MG/4 ML VIAL IVP SCH (17:08)
[2021-12-05] MEDS: *HR* Rivaroxaban 10 MG TABLET PO SCH (17:08)
[2021-12-05] MEDS: Melatonin 3 MG TABLET PO PRN (22:18)
[2021-12-06 07:39] LABS: Hematocrit 32.4 % (35.3-44.9); Mean Corpuscular HGB Conc 27.8 g/dL (31.6-35.5); Mean Corpuscular Hemoglobin 24.1 pg (28.0-33.3); Mean Corpuscular Volume 86.9 fL (83.0-100.0); Mean Platelet Volume 10.1 fL (9.4-12.4); Platelet Count 250 K/mcL (140-400); Red Blood Count 3.73 M/mcL (3.82-4.97); Red Cell Distribution Width 15.7 % (11.5-14.5); White Blood Count 5.9 K/mcL (4.3-11.1)
[2021-12-06] MEDS: *HR* HYDROcodone/Acet 5/325 mg TABLET PO SCH ×2 (08:35→21:28)
[2021-12-06] MEDS: DilTIAZem CD (24hr) 180 MG CAP.ER.24H PO SCH (08:35)
[2021-12-06] MEDS: Loratadine 10 MG TABLET PO SCH (08:36)
[2021-12-06] MEDS: acetaZOLAMIDE 250 MG TABLET PO SCH ×2 (08:36→21:28)
[2021-12-06] MEDS: Gabapentin 400 MG CAPSULE PO SCH ×3 (08:36→21:28)
[2021-12-06] MEDS: carvediloL 25 MG TABLET PO SCH ×2 (08:36→16:40)
[2021-12-06] MEDS: Aspirin 81 MG TAB.CHEW PO SCH (08:37)
[2021-12-06] MEDS: Levothyroxine 25 MCG TABLET PO SCH (08:37)
[2021-12-06] MEDS: Furosemide 40 MG/4 ML VIAL IVP SCH (08:37)
[2021-12-06] MEDS: Insulin LISPRO 300 UNITS/3 ML VIAL SUBQ SCH ×4 (08:37→21:29)
[2021-12-06] MEDS: Nystatin POWDER 30 GM BOTTLE TP SCH ×3 (08:38→21:29)
[2021-12-06] MEDS: polyethylene glycoL 3350 17 GM POWD.PACK PO SCH (08:45)
[2021-12-06] MEDS: Sennosides/Docusate Sodium TABLET PO SCH ×2 (08:45→21:28)
[2021-12-06 08:50] LABS: BUN/Creatinine Ratio 16 (6-26); Blood Urea Nitrogen 16 mg/dL (8-23); Calcium 8.9 mg/dL (8.6-10.3); Carbon Dioxide 43 mEq/L (23-29); Chloride 96 mEq/L (98-107); Glucose 159 mg/dL (70-105); Osmolality,Calculated 299 (280-300); Potassium 4.1 mEq/L (3.5-5.1); Sodium 142 mEq/L (136-145); eGFR For African Americans > 60 (> 60); eGFR For Non-African Americans 54 (> 60)
[2021-12-06] MEDS: Budesonide/Formoterol 160/4.5 1 PUFF INH IH SCH ×2 (09:13→21:24)
[2021-12-06] MEDS ORDERED: Levalbuterol Neb 1.25 MG/3 ML IH PRN (12:11)
[2021-12-06] MEDS: Furosemide 40 MG TABLET PO SCH (16:39)
[2021-12-06] MEDS: *HR* Rivaroxaban 10 MG TABLET PO SCH (16:39)
[2021-12-06] MEDS: hydrOXYzine pamoate 25 MG CAPSULE PO PRN (16:39)
[2021-12-06] MEDS: Melatonin 3 MG TABLET PO PRN (21:28)
[2021-12-07] MEDS: Budesonide/Formoterol 160/4.5 1 PUFF INH IH SCH (07:30)
[2021-12-07 07:37] VITALS: BP 108/62; PULSE 66; RESP 18; TEMP 98.6; O2SAT 98
[2021-12-07] MEDS ORDERED: Furosemide 40 MG TABLET PO SCH (08:00)
[2021-12-07 08:21] LABS: Hematocrit 30.6 % (35.3-44.9); Hemoglobin 8.2 g/dL (11.5-15.4); Mean Corpuscular HGB Conc 26.8 g/dL (31.6-35.5); Mean Corpuscular Hemoglobin 23.8 pg (28.0-33.3); Mean Platelet Volume 9.6 fL (9.4-12.4); Platelet Count 235 K/mcL (140-400); Red Blood Count 3.44 M/mcL (3.82-4.97); Red Cell Distribution Width 15.7 % (11.5-14.5)
[2021-12-07 08:48] LABS: Calcium 8.5 mg/dL (8.6-10.3)
[2021-12-07] MEDS: carvediloL 25 MG TABLET PO SCH ×2 (09:04→16:46)
[2021-12-07] MEDS: Gabapentin 400 MG CAPSULE PO SCH ×2 (09:04→16:46)
[2021-12-07] MEDS: DilTIAZem CD (24hr) 180 MG CAP.ER.24H PO SCH (09:04)
[2021-12-07] MEDS: Levothyroxine 25 MCG TABLET PO SCH (09:05)
[2021-12-07] MEDS: Furosemide 40 MG TABLET PO SCH ×2 (09:05→16:46)
[2021-12-07] MEDS: Aspirin 81 MG TAB.CHEW PO SCH (09:05)
[2021-12-07] MEDS: acetaZOLAMIDE 250 MG TABLET PO SCH (09:05)
[2021-12-07] MEDS: Loratadine 10 MG TABLET PO SCH (09:05)
[2021-12-07] MEDS: *HR* HYDROcodone/Acet 5/325 mg TABLET PO SCH (09:06)
[2021-12-07] MEDS: Sennosides/Docusate Sodium TABLET PO SCH (09:06)
[2021-12-07] MEDS: polyethylene glycoL 3350 17 GM POWD.PACK PO SCH (09:06)
[2021-12-07] MEDS: Nystatin POWDER 30 GM BOTTLE TP SCH ×2 (09:06→16:47)
[2021-12-07] MEDS: Insulin LISPRO 300 UNITS/3 ML VIAL SUBQ SCH ×3 (09:07→16:47)
[2021-12-07] MEDS: *HR* Rivaroxaban 10 MG TABLET PO SCH (16:47)
== END 2021-12-07 17:08 | disposition other institution (70) | DRG 291 ==
LOC: INPPIK 06:08 → EMEROOPIK 06:08 → INPPIK 09:28
PROVIDERS: ADMIT Family Medicine; ATTEND Family Medicine

== ENCOUNTER 2021-12-07 15:06 | Inpatient (IN) ==
[2021-12-07] MEDS ORDERED: Simethicone 80 MG TAB.CHEW PO PRN (18:53)
[2021-12-07] MEDS ORDERED: Nystatin POWDER 30 GM BOTTLE TP PRN (18:53)
[2021-12-07] MEDS: Albuterol 2.5 MG/3 ML NEBULIZER IH SCH (20:32)
[2021-12-07] MEDS: Budesonide/Formoterol 160/4.5 1 PUFF INH IH SCH (20:34)
[2021-12-07] MEDS: Doxycycline 100 MG CAPSULE PO SCH (20:40)
[2021-12-07] MEDS: Gabapentin 400 MG CAPSULE PO SCH (20:40)
[2021-12-07] MEDS: carvediloL 25 MG TABLET PO SCH ×2 (20:40→20:43)
[2021-12-08] MEDS: Albuterol 2.5 MG/3 ML NEBULIZER IH SCH ×2 (01:36→09:06)
[2021-12-08] MEDS: Levothyroxine 25 MCG TABLET PO SCH (05:36)
[2021-12-08 07:20] LABS: Basophils % 0.3 %; Eosinophils # 0.2 K/mcL (0.0-0.6); Eosinophils % 2.8 %; Hematocrit 30.2 % (35.3-44.9); Hemoglobin 8.4 g/dL (11.5-15.4); Immature Granulocytes % 0.3 % (0-4); Lymphocytes # 1.3 K/mcL (0.6-4.6); Mean Corpuscular HGB Conc 27.8 g/dL (31.6-35.5); Mean Corpuscular Hemoglobin 23.9 pg (28.0-33.3); Mean Corpuscular Volume 85.8 fL (83.0-100.0); Mean Platelet Volume 9.8 fL (9.4-12.4); Monocytes # 0.8 K/mcL (0.0-1.3); Monocytes % 11.3 %; Neutrophils # 4.5 K/mcL (1.6-8.9); Platelet Count 225 K/mcL (140-400); Red Blood Count 3.52 M/mcL (3.82-4.97); Red Cell Distribution Width 15.6 % (11.5-14.5); Segmented Neutrophils % 66.3 %; White Blood Count 6.8 K/mcL (4.3-11.1)
[2021-12-08 07:58] LABS: Calcium 8.4 mg/dL (8.6-10.3); Potassium 3.9 mEq/L (3.5-5.1)
[2021-12-08 08:32] LABS: Hypochromasia Present (Not Present)
[2021-12-08 08:33] LABS: Platelet Estimate Normal (Normal); Stomatocytes 1+ (Not Present)
[2021-12-08] MEDS: Budesonide/Formoterol 160/4.5 1 PUFF INH IH SCH ×2 (09:05→21:17)
[2021-12-08] MEDS: Loratadine 10 MG TABLET PO SCH (09:31)
[2021-12-08] MEDS: DilTIAZem CD (24hr) 180 MG CAP.ER.24H PO SCH (09:32)
[2021-12-08] MEDS: Doxycycline 100 MG CAPSULE PO SCH ×3 (09:32→23:11)
[2021-12-08] MEDS: carvediloL 25 MG TABLET PO SCH ×2 (09:32→21:55)
[2021-12-08] MEDS: Gabapentin 400 MG CAPSULE PO SCH ×3 (09:32→22:04)
[2021-12-08] MEDS: Aspirin 81 MG TAB.CHEW PO SCH (09:32)
[2021-12-08] MEDS: Furosemide 40 MG TABLET PO SCH ×2 (09:33→19:40)
[2021-12-08] MEDS: EPA PO SCH (09:34)
[2021-12-08] MEDS: *HR* Metformin 500 MG TABLET PO SCH ×3 (09:34→17:46)
[2021-12-08] MEDS: FISH OIL PO SCH (09:34)
[2021-12-08] MEDS: OMEGA PO SCH (09:34)
[2021-12-08] MEDS: DHA PO SCH (09:34)
[2021-12-08] MEDS: acetaZOLAMIDE 250 MG TABLET PO SCH ×3 (11:52→23:03)
[2021-12-08] MEDS: *HR* Rivaroxaban 10 MG TABLET PO SCH (17:46)
[2021-12-08] MEDS: hydrOXYzine pamoate 25 MG CAPSULE PO PRN (21:59)
[2021-12-08] MEDS ORDERED: WATER FOR INJ IVP ONE (23:00)
[2021-12-08] MEDS ORDERED: ACETAZOLAMIDE IVP ONE (23:00)
[2021-12-09] MEDS: *HR* HYDROcodone/Acet 5/325 mg TABLET PO PRN ×2 (01:07→20:05)
[2021-12-09] MEDS: Levothyroxine 25 MCG TABLET PO SCH (04:44)
[2021-12-09] MEDS: Budesonide/Formoterol 160/4.5 1 PUFF INH IH SCH ×2 (08:33→20:41)
[2021-12-09 09:08] LABS: Basophils % 0.2 %; Eosinophils # 0.2 K/mcL (0.0-0.6); Eosinophils % 2.8 %; Hematocrit 28.7 % (35.3-44.9); Immature Granulocytes % 0.5 % (0-4); Lymphocytes # 1.4 K/mcL (0.6-4.6); Mean Corpuscular HGB Conc 27.9 g/dL (31.6-35.5); Mean Corpuscular Volume 86.2 fL (83.0-100.0); Mean Platelet Volume 9.3 fL (9.4-12.4); Monocytes # 0.7 K/mcL (0.0-1.3); Monocytes % 11.9 %; Neutrophils # 3.4 K/mcL (1.6-8.9); Platelet Count 211 K/mcL (140-400); Red Blood Count 3.33 M/mcL (3.82-4.97); Red Cell Distribution Width 15.5 % (11.5-14.5); Segmented Neutrophils % 60.6 %; White Blood Count 5.6 K/mcL (4.3-11.1)
[2021-12-09] MEDS: carvediloL 25 MG TABLET PO SCH ×2 (09:13→20:04)
[2021-12-09] MEDS: acetaZOLAMIDE 250 MG TABLET PO SCH ×2 (09:14→20:04)
[2021-12-09] MEDS: Aspirin 81 MG TAB.CHEW PO SCH (09:14)
[2021-12-09] MEDS: Loratadine 10 MG TABLET PO SCH (09:14)
[2021-12-09] MEDS: Doxycycline 100 MG CAPSULE PO SCH ×2 (09:14→20:04)
[2021-12-09] MEDS: Gabapentin 400 MG CAPSULE PO SCH ×3 (09:14→20:05)
[2021-12-09] MEDS: DilTIAZem CD (24hr) 180 MG CAP.ER.24H PO SCH (09:14)
[2021-12-09] MEDS: *HR* Metformin 500 MG TABLET PO SCH ×3 (09:15→16:20)
[2021-12-09] MEDS: FISH OIL PO SCH (09:22)
[2021-12-09] MEDS: OMEGA PO SCH (09:22)
[2021-12-09] MEDS: EPA PO SCH (09:22)
[2021-12-09] MEDS: DHA PO SCH (09:22)
[2021-12-09 09:27] LABS: BUN/Creatinine Ratio 29 (6-26); Blood Urea Nitrogen 26 mg/dL (8-23); Calcium 8.4 mg/dL (8.6-10.3); Carbon Dioxide 36 mEq/L (23-29); Chloride 99 mEq/L (98-107); Glucose 174 mg/dL (70-105); Osmolality,Calculated 299 (280-300); Sodium 140 mEq/L (136-145); eGFR For African Americans > 60 (> 60); eGFR For Non-African Americans > 60 (> 60)
[2021-12-09] MEDS: *HR* Rivaroxaban 10 MG TABLET PO SCH (16:05)
[2021-12-10] MEDS: Levothyroxine 25 MCG TABLET PO SCH (05:49)
[2021-12-10 07:42] LABS: Basophils % 0.3 %; Eosinophils # 0.2 K/mcL (0.0-0.6); Eosinophils % 2.9 %; Hematocrit 28.6 % (35.3-44.9); Immature Granulocytes % 0.3 % (0-4); Lymphocytes # 1.2 K/mcL (0.6-4.6); Lymphocytes % 20.9 %; Mean Corpuscular Hemoglobin 24.2 pg (28.0-33.3); Mean Corpuscular Volume 86.4 fL (83.0-100.0); Monocytes # 0.7 K/mcL (0.0-1.3); Neutrophils # 3.8 K/mcL (1.6-8.9); Platelet Count 194 K/mcL (140-400); Red Blood Count 3.31 M/mcL (3.82-4.97); Red Cell Distribution Width 15.3 % (11.5-14.5); Segmented Neutrophils % 63.6 %; White Blood Count 5.9 K/mcL (4.3-11.1)
[2021-12-10 08:13] LABS: BUN/Creatinine Ratio 28 (6-26); Blood Urea Nitrogen 27 mg/dL (8-23); Calcium 8.3 mg/dL (8.6-10.3); Carbon Dioxide 31 mEq/L (23-29); Chloride 102 mEq/L (98-107); Glucose 146 mg/dL (70-105); Magnesium 1.8 mg/dL (1.6-2.6); Osmolality,Calculated 296 (280-300); Potassium 4.4 mEq/L (3.5-5.1); Sodium 139 mEq/L (136-145); eGFR For African Americans > 60 (> 60); eGFR For Non-African Americans 56 (> 60)
[2021-12-10] MEDS: *HR* Metformin 500 MG TABLET PO SCH ×3 (08:28→16:18)
[2021-12-10] MEDS: Doxycycline 100 MG CAPSULE PO SCH ×2 (08:28→20:59)
[2021-12-10] MEDS: acetaZOLAMIDE 250 MG TABLET PO SCH ×2 (08:28→21:00)
[2021-12-10] MEDS: Loratadine 10 MG TABLET PO SCH (08:28)
[2021-12-10] MEDS: Aspirin 81 MG TAB.CHEW PO SCH (08:29)
[2021-12-10] MEDS: DilTIAZem CD (24hr) 180 MG CAP.ER.24H PO SCH (08:29)
[2021-12-10] MEDS: Gabapentin 400 MG CAPSULE PO SCH ×3 (08:29→20:59)
[2021-12-10] MEDS: DHA PO SCH (08:33)
[2021-12-10] MEDS: OMEGA PO SCH (08:33)
[2021-12-10] MEDS: EPA PO SCH (08:33)
[2021-12-10] MEDS: FISH OIL PO SCH (08:33)
[2021-12-10] MEDS: Budesonide/Formoterol 160/4.5 1 PUFF INH IH SCH ×2 (08:46→21:22)
[2021-12-10 09:50] LABS: Hypochromasia Present (Not Present); Platelet Estimate Normal (Normal)
[2021-12-10] MEDS: *HR* HYDROcodone/Acet 5/325 mg TABLET PO PRN (10:26)
[2021-12-10] MEDS: carvediloL 25 MG TABLET PO SCH ×2 (10:26→20:04)
[2021-12-10] MEDS: *HR* Rivaroxaban 10 MG TABLET PO SCH (16:19)
[2021-12-11] MEDS: *HR* HYDROcodone/Acet 5/325 mg TABLET PO PRN (02:31)
[2021-12-11] MEDS: Levothyroxine 25 MCG TABLET PO SCH (06:49)
[2021-12-11] MEDS: Budesonide/Formoterol 160/4.5 1 PUFF INH IH SCH ×2 (08:47→21:44)
[2021-12-11] MEDS: Aspirin 81 MG TAB.CHEW PO SCH (09:27)
[2021-12-11] MEDS: Gabapentin 400 MG CAPSULE PO SCH ×3 (09:27→20:51)
[2021-12-11] MEDS: Furosemide 40 MG TABLET PO SCH ×2 (09:28→16:44)
[2021-12-11] MEDS: Loratadine 10 MG TABLET PO SCH (09:28)
[2021-12-11] MEDS: DilTIAZem CD (24hr) 180 MG CAP.ER.24H PO SCH (09:28)
[2021-12-11] MEDS: *HR* Metformin 500 MG TABLET PO SCH ×3 (09:28→16:44)
[2021-12-11] MEDS: Doxycycline 100 MG CAPSULE PO SCH (09:28)
[2021-12-11] MEDS: OMEGA PO SCH (09:29)
[2021-12-11] MEDS: EPA PO SCH (09:29)
[2021-12-11] MEDS: FISH OIL PO SCH (09:29)
[2021-12-11] MEDS: DHA PO SCH (09:29)
[2021-12-11] MEDS: carvediloL 25 MG TABLET PO SCH ×2 (14:20→20:51)
[2021-12-11] MEDS: *HR* Rivaroxaban 10 MG TABLET PO SCH (16:43)
[2021-12-12] MEDS: *HR* HYDROcodone/Acet 5/325 mg TABLET PO PRN ×2 (06:12→18:53)
[2021-12-12] MEDS: Levothyroxine 25 MCG TABLET PO SCH (06:13)
[2021-12-12 07:57] LABS: Basophils % 0.4 %; Eosinophils # 0.1 K/mcL (0.0-0.6); Eosinophils % 2.2 %; Hematocrit 30.4 % (35.3-44.9); Hemoglobin 8.4 g/dL (11.5-15.4); Immature Granulocytes % 0.2 % (0-4); Lymphocytes # 0.9 K/mcL (0.6-4.6); Mean Corpuscular HGB Conc 27.6 g/dL (31.6-35.5); Mean Corpuscular Hemoglobin 23.6 pg (28.0-33.3); Mean Corpuscular Volume 85.4 fL (83.0-100.0); Mean Platelet Volume 9.9 fL (9.4-12.4); Monocytes # 0.5 K/mcL (0.0-1.3); Monocytes % 10.5 %; Neutrophils # 3.1 K/mcL (1.6-8.9); Platelet Count 187 K/mcL (140-400); Red Blood Count 3.56 M/mcL (3.82-4.97); Red Cell Distribution Width 15.1 % (11.5-14.5); Segmented Neutrophils % 66.7 %; White Blood Count 4.7 K/mcL (4.3-11.1)
[2021-12-12 08:18] LABS: BUN/Creatinine Ratio 26 (6-26); Blood Urea Nitrogen 25 mg/dL (8-23); Calcium 8.4 mg/dL (8.6-10.3); Carbon Dioxide 33 mEq/L (23-29); Chloride 102 mEq/L (98-107); Glucose 133 mg/dL (70-105); Osmolality,Calculated 298 (280-300); Sodium 141 mEq/L (136-145); eGFR For African Americans > 60 (> 60); eGFR For Non-African Americans 58 (> 60)
[2021-12-12] MEDS: Budesonide/Formoterol 160/4.5 1 PUFF INH IH SCH ×2 (08:47→21:52)
[2021-12-12] MEDS: DilTIAZem CD (24hr) 180 MG CAP.ER.24H PO SCH (09:11)
[2021-12-12] MEDS: Aspirin 81 MG TAB.CHEW PO SCH (09:12)
[2021-12-12] MEDS: *HR* Metformin 500 MG TABLET PO SCH ×3 (09:12→14:36)
[2021-12-12] MEDS: Gabapentin 400 MG CAPSULE PO SCH ×3 (09:13→21:17)
[2021-12-12] MEDS: Furosemide 40 MG TABLET PO SCH ×2 (09:13→16:54)
[2021-12-12] MEDS: Loratadine 10 MG TABLET PO SCH (09:13)
[2021-12-12 09:14] LABS: Anisocytosis 1+ (Not Present); Hypochromasia Present (Not Present); Platelet Estimate Normal (Normal)
[2021-12-12] MEDS: FISH OIL PO SCH (09:14)
[2021-12-12] MEDS: carvediloL 25 MG TABLET PO SCH ×2 (09:14→21:16)
[2021-12-12] MEDS: DHA PO SCH (09:14)
[2021-12-12] MEDS: OMEGA PO SCH (09:14)
[2021-12-12] MEDS: EPA PO SCH (09:14)
[2021-12-12] MEDS: *HR* Rivaroxaban 10 MG TABLET PO SCH (16:54)
[2021-12-13] MEDS: Levothyroxine 25 MCG TABLET PO SCH (06:07)
[2021-12-13] MEDS: Budesonide/Formoterol 160/4.5 1 PUFF INH IH SCH ×2 (08:42→21:47)
[2021-12-13] MEDS ORDERED: *HR* Metoprolol 5 MG/5 ML VIAL IVP ONE (09:33)
[2021-12-13] MEDS ORDERED: carvediloL 6.25 MG TABLET PO ONE (09:50)
[2021-12-13] MEDS: carvediloL 25 MG TABLET PO SCH ×2 (09:57→20:48)
[2021-12-13] MEDS: *HR* Metformin 500 MG TABLET PO SCH ×3 (09:57→18:00)
[2021-12-13] MEDS: Aspirin 81 MG TAB.CHEW PO SCH (09:58)
[2021-12-13] MEDS: DilTIAZem CD (24hr) 180 MG CAP.ER.24H PO SCH (09:58)
[2021-12-13] MEDS: Gabapentin 400 MG CAPSULE PO SCH ×3 (09:58→20:48)
[2021-12-13] MEDS: Loratadine 10 MG TABLET PO SCH (09:58)
[2021-12-13] MEDS: Furosemide 40 MG TABLET PO SCH ×2 (09:58→17:59)
[2021-12-13] MEDS: EPA PO SCH (11:53)
[2021-12-13] MEDS: FISH OIL PO SCH (11:53)
[2021-12-13] MEDS: OMEGA PO SCH (11:53)
[2021-12-13] MEDS: DHA PO SCH (11:53)
[2021-12-13] MEDS: *HR* Rivaroxaban 10 MG TABLET PO SCH (18:00)
[2021-12-14] MEDS: Levothyroxine 25 MCG TABLET PO SCH (05:50)
[2021-12-14] MEDS: *HR* HYDROcodone/Acet 5/325 mg TABLET PO PRN ×2 (05:52→18:44)
[2021-12-14 07:06] LABS: Basophils % 0.3 %; Eosinophils # 0.1 K/mcL (0.0-0.6); Eosinophils % 2.3 %; Hematocrit 30.8 % (35.3-44.9); Hemoglobin 8.7 g/dL (11.5-15.4); Immature Granulocytes % 0.5 % (0-4); Lymphocytes % 16.8 %; Mean Corpuscular HGB Conc 28.2 g/dL (31.6-35.5); Mean Corpuscular Hemoglobin 23.8 pg (28.0-33.3); Mean Corpuscular Volume 84.4 fL (83.0-100.0); Mean Platelet Volume 10.7 fL (9.4-12.4); Monocytes # 0.5 K/mcL (0.0-1.3); Monocytes % 8.5 %; Neutrophils # 4.4 K/mcL (1.6-8.9); Platelet Count 194 K/mcL (140-400); Red Blood Count 3.65 M/mcL (3.82-4.97); Red Cell Distribution Width 15.3 % (11.5-14.5); Segmented Neutrophils % 71.6 %; White Blood Count 6.2 K/mcL (4.3-11.1)
[2021-12-14 07:27] LABS: BUN/Creatinine Ratio 19 (6-26); Blood Urea Nitrogen 15 mg/dL (8-23); Calcium 8.9 mg/dL (8.6-10.3); Carbon Dioxide 35 mEq/L (23-29); Chloride 100 mEq/L (98-107); Glucose 182 mg/dL (70-105); Osmolality,Calculated 299 (280-300); Potassium 3.9 mEq/L (3.5-5.1); Sodium 142 mEq/L (136-145); eGFR For African Americans > 60 (> 60); eGFR For Non-African Americans > 60 (> 60)
[2021-12-14] MEDS: carvediloL 25 MG TABLET PO SCH ×2 (07:45→20:38)
[2021-12-14] MEDS: Loratadine 10 MG TABLET PO SCH (07:46)
[2021-12-14] MEDS: *HR* Metformin 500 MG TABLET PO SCH ×3 (07:46→16:37)
[2021-12-14] MEDS: Furosemide 40 MG TABLET PO SCH ×2 (07:46→16:37)
[2021-12-14] MEDS: Aspirin 81 MG TAB.CHEW PO SCH (07:46)
[2021-12-14] MEDS: Gabapentin 400 MG CAPSULE PO SCH ×3 (07:46→20:38)
[2021-12-14] MEDS: DilTIAZem CD (24hr) 180 MG CAP.ER.24H PO SCH (07:46)
[2021-12-14 08:39] LABS: Anisocytosis 1+ (Not Present); Hypochromasia Present (Not Present)
[2021-12-14 08:40] LABS: Platelet Estimate Normal (Normal)
[2021-12-14] MEDS: Budesonide/Formoterol 160/4.5 1 PUFF INH IH SCH ×2 (09:40→21:32)
[2021-12-14] MEDS: EPA PO SCH (11:47)
[2021-12-14] MEDS: FISH OIL PO SCH (11:47)
[2021-12-14] MEDS: OMEGA PO SCH (11:47)
[2021-12-14] MEDS: DHA PO SCH (11:47)
[2021-12-14] MEDS: *HR* Rivaroxaban 10 MG TABLET PO SCH (16:37)
[2021-12-15] MEDS: *HR* HYDROcodone/Acet 5/325 mg TABLET PO PRN ×2 (04:06→18:00)
[2021-12-15] MEDS: Levothyroxine 25 MCG TABLET PO SCH (06:40)
[2021-12-15] MEDS: Budesonide/Formoterol 160/4.5 1 PUFF INH IH SCH ×2 (08:57→21:50)
[2021-12-15] MEDS: DilTIAZem CD (24hr) 180 MG CAP.ER.24H PO SCH (09:02)
[2021-12-15] MEDS: Gabapentin 400 MG CAPSULE PO SCH ×3 (09:02→20:17)
[2021-12-15] MEDS: Aspirin 81 MG TAB.CHEW PO SCH (09:03)
[2021-12-15] MEDS: *HR* Metformin 500 MG TABLET PO SCH ×3 (09:03→15:41)
[2021-12-15] MEDS: Furosemide 40 MG TABLET PO SCH ×2 (09:03→15:42)
[2021-12-15] MEDS: Loratadine 10 MG TABLET PO SCH (09:03)
[2021-12-15] MEDS: carvediloL 25 MG TABLET PO SCH ×2 (09:03→20:17)
[2021-12-15] MEDS: FISH OIL PO SCH (09:04)
[2021-12-15] MEDS: DHA PO SCH (09:04)
[2021-12-15] MEDS: EPA PO SCH (09:04)
[2021-12-15] MEDS: OMEGA PO SCH (09:04)
[2021-12-15] MEDS: *HR* Rivaroxaban 10 MG TABLET PO SCH (15:41)
[2021-12-15] MEDS: Sennosides/Docusate Sodium TABLET PO PRN (20:17)
[2021-12-16] MEDS: Levothyroxine 25 MCG TABLET PO SCH (05:25)
[2021-12-16] MEDS: *HR* HYDROcodone/Acet 5/325 mg TABLET PO PRN ×2 (06:11→19:17)
[2021-12-16] MEDS: Budesonide/Formoterol 160/4.5 1 PUFF INH IH SCH ×2 (07:57→21:30)
[2021-12-16] MEDS: *HR* Metformin 500 MG TABLET PO SCH ×3 (09:22→16:44)
[2021-12-16] MEDS: DHA PO SCH (09:22)
[2021-12-16] MEDS: FISH OIL PO SCH (09:22)
[2021-12-16] MEDS: OMEGA PO SCH (09:22)
[2021-12-16] MEDS: EPA PO SCH (09:22)
[2021-12-16] MEDS: Gabapentin 400 MG CAPSULE PO SCH ×3 (09:25→20:39)
[2021-12-16] MEDS: Loratadine 10 MG TABLET PO SCH (09:25)
[2021-12-16] MEDS: DilTIAZem CD (24hr) 180 MG CAP.ER.24H PO SCH (09:25)
[2021-12-16] MEDS: Aspirin 81 MG TAB.CHEW PO SCH (09:27)
[2021-12-16] MEDS: Furosemide 40 MG TABLET PO SCH ×2 (09:27→16:46)
[2021-12-16] MEDS: carvediloL 25 MG TABLET PO SCH ×2 (09:43→20:38)
[2021-12-16] MEDS: *HR* Rivaroxaban 10 MG TABLET PO SCH (16:44)
[2021-12-17] MEDS: hydrOXYzine pamoate 25 MG CAPSULE PO PRN ×2 (04:58→20:38)
[2021-12-17] MEDS: Levothyroxine 25 MCG TABLET PO SCH (05:58)
[2021-12-17] MEDS: Loratadine 10 MG TABLET PO SCH (08:55)
[2021-12-17] MEDS: Gabapentin 400 MG CAPSULE PO SCH ×3 (08:55→20:39)
[2021-12-17] MEDS: Sennosides/Docusate Sodium TABLET PO PRN (08:56)
[2021-12-17] MEDS: Furosemide 40 MG TABLET PO SCH ×2 (08:56→15:37)
[2021-12-17] MEDS: *HR* Metformin 500 MG TABLET PO SCH ×3 (08:56→15:40)
[2021-12-17] MEDS: Aspirin 81 MG TAB.CHEW PO SCH (08:56)
[2021-12-17] MEDS: DilTIAZem CD (24hr) 180 MG CAP.ER.24H PO SCH (08:57)
[2021-12-17] MEDS: FISH OIL PO SCH (08:57)
[2021-12-17] MEDS: OMEGA PO SCH (08:57)
[2021-12-17] MEDS: carvediloL 25 MG TABLET PO SCH ×2 (08:57→20:39)
[2021-12-17] MEDS: EPA PO SCH (08:57)
[2021-12-17] MEDS: DHA PO SCH (08:57)
[2021-12-17] MEDS: Budesonide/Formoterol 160/4.5 1 PUFF INH IH SCH ×2 (09:51→21:19)
[2021-12-17] MEDS: *HR* Rivaroxaban 10 MG TABLET PO SCH (15:40)
[2021-12-17] MEDS: *HR* HYDROcodone/Acet 5/325 mg TABLET PO PRN (16:20)
[2021-12-18] MEDS: *HR* HYDROcodone/Acet 5/325 mg TABLET PO PRN ×2 (02:50→14:56)
[2021-12-18] MEDS: Levothyroxine 25 MCG TABLET PO SCH (06:38)
[2021-12-18] MEDS: Aspirin 81 MG TAB.CHEW PO SCH (08:36)
[2021-12-18] MEDS: DilTIAZem CD (24hr) 180 MG CAP.ER.24H PO SCH (08:36)
[2021-12-18] MEDS: Loratadine 10 MG TABLET PO SCH (08:36)
[2021-12-18] MEDS: carvediloL 25 MG TABLET PO SCH ×2 (08:37→20:39)
[2021-12-18] MEDS: Furosemide 40 MG TABLET PO SCH ×2 (08:37→16:35)
[2021-12-18] MEDS: Gabapentin 400 MG CAPSULE PO SCH ×3 (08:39→20:39)
[2021-12-18] MEDS: *HR* Metformin 850 MG TABLET PO SCH ×3 (08:51→16:35)
[2021-12-18] MEDS: Budesonide/Formoterol 160/4.5 1 PUFF INH IH SCH ×2 (10:28→22:00)
[2021-12-18] MEDS: *HR* Rivaroxaban 10 MG TABLET PO SCH (16:35)
[2021-12-19] MEDS: Furosemide 40 MG TABLET PO SCH ×2 (07:32→16:10)
[2021-12-19] MEDS: Levothyroxine 25 MCG TABLET PO SCH (07:32)
[2021-12-19] MEDS: Loratadine 10 MG TABLET PO SCH (07:35)
[2021-12-19] MEDS: Gabapentin 400 MG CAPSULE PO SCH ×3 (07:35→20:00)
[2021-12-19] MEDS: *HR* Metformin 850 MG TABLET PO SCH ×3 (07:36→16:10)
[2021-12-19] MEDS: DilTIAZem CD (24hr) 180 MG CAP.ER.24H PO SCH (07:36)
[2021-12-19] MEDS: Aspirin 81 MG TAB.CHEW PO SCH (07:37)
[2021-12-19] MEDS: carvediloL 25 MG TABLET PO SCH ×2 (07:37→20:00)
[2021-12-19] MEDS: *HR* HYDROcodone/Acet 5/325 mg TABLET PO PRN ×2 (08:05→20:00)
[2021-12-19] MEDS: Budesonide/Formoterol 160/4.5 1 PUFF INH IH SCH ×2 (08:42→21:29)
[2021-12-19] MEDS: *HR* Rivaroxaban 10 MG TABLET PO SCH (16:09)
[2021-12-20] MEDS: Levothyroxine 25 MCG TABLET PO SCH (06:32)
[2021-12-20] MEDS: carvediloL 25 MG TABLET PO SCH ×2 (08:36→20:36)
[2021-12-20] MEDS: *HR* Metformin 850 MG TABLET PO SCH ×3 (08:36→15:20)
[2021-12-20] MEDS: Furosemide 40 MG TABLET PO SCH ×2 (08:37→15:19)
[2021-12-20] MEDS: Aspirin 81 MG TAB.CHEW PO SCH (08:38)
[2021-12-20] MEDS: Gabapentin 400 MG CAPSULE PO SCH ×3 (08:38→20:36)
[2021-12-20] MEDS: Loratadine 10 MG TABLET PO SCH (08:38)
[2021-12-20] MEDS: DilTIAZem CD (24hr) 180 MG CAP.ER.24H PO SCH (08:38)
[2021-12-20] MEDS: Budesonide/Formoterol 160/4.5 1 PUFF INH IH SCH ×2 (09:11→20:55)
[2021-12-20] MEDS: *HR* HYDROcodone/Acet 5/325 mg TABLET PO PRN ×2 (11:36→20:36)
[2021-12-20] MEDS: *HR* Rivaroxaban 10 MG TABLET PO SCH (15:19)
[2021-12-20 20:18] VITALS: PULSE 68
[2021-12-21] MEDS: Levothyroxine 25 MCG TABLET PO SCH (05:57)
[2021-12-21 07:44] VITALS: BP 165/81; TEMP 97.7
[2021-12-21] MEDS: Gabapentin 400 MG CAPSULE PO SCH ×2 (08:09→14:09)
[2021-12-21] MEDS: Aspirin 81 MG TAB.CHEW PO SCH (08:09)
[2021-12-21] MEDS: DilTIAZem CD (24hr) 180 MG CAP.ER.24H PO SCH (08:10)
[2021-12-21] MEDS: Furosemide 40 MG TABLET PO SCH (08:10)
[2021-12-21] MEDS: *HR* Metformin 850 MG TABLET PO SCH ×2 (08:10→11:35)
[2021-12-21] MEDS: Loratadine 10 MG TABLET PO SCH (08:10)
[2021-12-21] MEDS: carvediloL 25 MG TABLET PO SCH (08:11)
[2021-12-21] MEDS: Budesonide/Formoterol 160/4.5 1 PUFF INH IH SCH (09:06)
[2021-12-21 09:09] VITALS: RESP 18; O2SAT 98
[2021-12-21] MEDS: *HR* HYDROcodone/Acet 5/325 mg TABLET PO PRN (10:06)
== END 2021-12-21 14:25 | disposition hospice, home (50) | DRG 291 ==
LOC: INPPIK 17:09
PROVIDERS: ADMIT Family Medicine; ATTEND Family Medicine

== ENCOUNTER 2022-01-06 12:34 | Inpatient (IN) ==
[2022-01-06] MEDS ORDERED: Levalbuterol 1 PUFF INHALER IH PRN (16:55)
[2022-01-06] MEDS ORDERED: Nystatin POWDER 30 GM BOTTLE TP PRN (16:55)
[2022-01-06] MEDS ORDERED: Sennosides/Docusate Sodium TABLET PO PRN (16:55)
[2022-01-06] MEDS: *HR* Metformin 850 MG TABLET PO SCH (17:41)
[2022-01-06] MEDS: carvediloL 25 MG TABLET PO SCH (17:41)
[2022-01-06] MEDS: hydrOXYzine pamoate 25 MG CAPSULE PO PRN (17:42)
[2022-01-06] MEDS: *HR* Rivaroxaban 10 MG TABLET PO SCH (17:42)
[2022-01-06] MEDS: Furosemide 40 MG TABLET PO SCH (17:42)
[2022-01-06] MEDS: Simethicone 80 MG TAB.CHEW PO PRN (18:52)
[2022-01-06] MEDS ORDERED: D5% in Water 1,000 ML IVC PRN (20:08)
[2022-01-06] MEDS ORDERED: Dextrose Gel 15 GM/37.5 ML TUBE PO PRN ×2 (20:08)
[2022-01-06] MEDS ORDERED: *HR* Dextrose 50 % in Water (Syg) 50 ML SYRINGE IVP PRN (20:08)
[2022-01-06] MEDS: Budesonide/Formoterol 160/4.5 1 PUFF INH IH SCH (21:19)
[2022-01-06] MEDS: Levalbuterol Neb 1.25 MG/3 ML IH SCH (21:19)
[2022-01-06] MEDS: Gabapentin 400 MG CAPSULE PO SCH (21:20)
[2022-01-06] MEDS: DilTIAZem CD (24hr) 180 MG CAP.ER.24H PO SCH (21:20)
[2022-01-06] MEDS: Insulin LISPRO 300 UNITS/3 ML VIAL SUBQ SCH (21:21)
[2022-01-07] MEDS: Levalbuterol Neb 1.25 MG/3 ML IH SCH ×4 (04:06→21:33)
[2022-01-07] MEDS: Levothyroxine 25 MCG TABLET PO SCH (06:14)
[2022-01-07 07:10] LABS: Eosinophils % 0.1 %; Hematocrit 29.8 % (35.3-44.9); Hemoglobin 8.7 g/dL (11.5-15.4); Immature Granulocytes % 0.5 % (0-4); Lymphocytes % 9.4 %; Mean Corpuscular HGB Conc 29.2 g/dL (31.6-35.5); Mean Corpuscular Volume 78.6 fL (83.0-100.0); Mean Platelet Volume 10.4 fL (9.4-12.4); Monocytes # 0.7 K/mcL (0.0-1.3); Monocytes % 6.4 %; Neutrophils # 9.1 K/mcL (1.6-8.9); Platelet Count 215 K/mcL (140-400); Red Blood Count 3.79 M/mcL (3.82-4.97); Red Cell Distribution Width 14.4 % (11.5-14.5); Segmented Neutrophils % 83.6 %; White Blood Count 10.9 K/mcL (4.3-11.1)
[2022-01-07 08:02] LABS: Calcium 8.7 mg/dL (8.6-10.3); Potassium 3.4 mEq/L (3.5-5.1)
[2022-01-07] MEDS: Insulin LISPRO 300 UNITS/3 ML VIAL SUBQ SCH ×4 (08:12→21:03)
[2022-01-07] MEDS: Furosemide 40 MG TABLET PO SCH ×2 (08:13→17:14)
[2022-01-07] MEDS: predniSONE 20 MG TABLET PO SCH (08:13)
[2022-01-07] MEDS: Aspirin 81 MG TAB.CHEW PO SCH (08:13)
[2022-01-07] MEDS: Gabapentin 400 MG CAPSULE PO SCH ×3 (08:13→21:00)
[2022-01-07] MEDS: *HR* Metformin 850 MG TABLET PO SCH ×3 (08:13→17:13)
[2022-01-07] MEDS: carvediloL 25 MG TABLET PO SCH ×2 (08:13→17:13)
[2022-01-07] MEDS: Loratadine 10 MG TABLET PO SCH (08:14)
[2022-01-07] MEDS: DilTIAZem CD (24hr) 180 MG CAP.ER.24H PO SCH ×2 (08:14→21:00)
[2022-01-07] MEDS ORDERED: NON-FORMULARY MEDICATION 1 EACH EACH (Omega-3/Dha/Epa/Fish Oil [Fish Oil 1,000 Mg Softgel] PO SCH (09:00)
[2022-01-07] MEDS: Budesonide/Formoterol 160/4.5 1 PUFF INH IH SCH ×2 (09:14→21:33)
[2022-01-07] MEDS: *HR* HYDROcodone/Acet 5/325 mg TABLET PO PRN (12:39)
[2022-01-07] MEDS: *HR* Rivaroxaban 10 MG TABLET PO SCH (17:14)
[2022-01-07] MEDS: hydrOXYzine pamoate 25 MG CAPSULE PO PRN (21:00)
[2022-01-07] MEDS: acetaZOLAMIDE 250 MG TABLET PO SCH (21:01)
[2022-01-07] MEDS: Simethicone 80 MG TAB.CHEW PO PRN (23:16)
[2022-01-08] MEDS: Levalbuterol Neb 1.25 MG/3 ML IH SCH ×4 (04:25→21:54)
[2022-01-08] MEDS: Levothyroxine 25 MCG TABLET PO SCH (05:36)
[2022-01-08 06:21] LABS: Basophils % 0.1 %; Eosinophils % 0.4 %; Hematocrit 30.7 % (35.3-44.9); Hemoglobin 8.7 g/dL (11.5-15.4); Immature Granulocytes % 0.7 % (0-4); Lymphocytes # 1.4 K/mcL (0.6-4.6); Mean Corpuscular HGB Conc 28.3 g/dL (31.6-35.5); Mean Corpuscular Hemoglobin 22.7 pg (28.0-33.3); Mean Corpuscular Volume 80.2 fL (83.0-100.0); Mean Platelet Volume 10.8 fL (9.4-12.4); Monocytes # 0.6 K/mcL (0.0-1.3); Monocytes % 6.5 %; Neutrophils # 7.3 K/mcL (1.6-8.9); Platelet Count 219 K/mcL (140-400); Red Blood Count 3.83 M/mcL (3.82-4.97); Red Cell Distribution Width 14.6 % (11.5-14.5); Segmented Neutrophils % 77.3 %; White Blood Count 9.4 K/mcL (4.3-11.1)
[2022-01-08 06:54] LABS: Calcium 8.9 mg/dL (8.6-10.3); Magnesium 1.6 mg/dL (1.6-2.6); Potassium 3.4 mEq/L (3.5-5.1)
[2022-01-08 07:24] LABS: Hypochromasia Present (Not Present)
[2022-01-08 07:25] LABS: Platelet Estimate Normal (Normal)
[2022-01-08 08:52] LABS: % Iron Saturation 3 % (15-50); Iron 14 mcg/dL (50-170); Transferrin 332 mg/dL (203-362)
[2022-01-08 09:17] LABS: Folate 10.8 ng/mL (3.0-16.0)
[2022-01-08] MEDS: Budesonide/Formoterol 160/4.5 1 PUFF INH IH SCH ×2 (09:36→21:54)
[2022-01-08] MEDS: predniSONE 20 MG TABLET PO SCH (09:55)
[2022-01-08] MEDS: DilTIAZem CD (24hr) 180 MG CAP.ER.24H PO SCH ×2 (09:55→19:54)
[2022-01-08] MEDS: Gabapentin 400 MG CAPSULE PO SCH ×3 (09:55→19:54)
[2022-01-08] MEDS: *HR* Metformin 850 MG TABLET PO SCH ×3 (09:55→17:46)
[2022-01-08] MEDS: acetaZOLAMIDE 250 MG TABLET PO SCH ×2 (09:55→19:55)
[2022-01-08] MEDS: Aspirin 81 MG TAB.CHEW PO SCH (09:56)
[2022-01-08] MEDS: Loratadine 10 MG TABLET PO SCH (09:56)
[2022-01-08] MEDS: *HR* HYDROcodone/Acet 5/325 mg TABLET PO PRN ×2 (09:56→22:08)
[2022-01-08] MEDS: carvediloL 25 MG TABLET PO SCH ×2 (09:56→16:45)
[2022-01-08] MEDS: Insulin LISPRO 300 UNITS/3 ML VIAL SUBQ SCH ×4 (09:59→19:56)
[2022-01-08] MEDS: Iron Sucrose Complex 200 MG in 0.9 % Sodium Chloride 100 ML IVPB SCH (10:00)
[2022-01-08] MEDS: *HR* Rivaroxaban 10 MG TABLET PO SCH (17:45)
[2022-01-08] MEDS: hydrOXYzine pamoate 25 MG CAPSULE PO PRN (19:55)
[2022-01-09] MEDS: Levalbuterol Neb 1.25 MG/3 ML IH SCH ×4 (04:20→22:31)
[2022-01-09] MEDS: Levothyroxine 25 MCG TABLET PO SCH (06:05)
[2022-01-09] MEDS: Budesonide/Formoterol 160/4.5 1 PUFF INH IH SCH ×2 (08:08→22:31)
[2022-01-09] MEDS: *HR* Metformin 850 MG TABLET PO SCH ×3 (08:16→15:48)
[2022-01-09] MEDS: predniSONE 20 MG TABLET PO SCH (08:16)
[2022-01-09] MEDS: Gabapentin 400 MG CAPSULE PO SCH ×3 (08:16→21:19)
[2022-01-09] MEDS: acetaZOLAMIDE 250 MG TABLET PO SCH ×2 (08:16→21:20)
[2022-01-09] MEDS: DilTIAZem CD (24hr) 180 MG CAP.ER.24H PO SCH ×2 (08:16→21:19)
[2022-01-09] MEDS: Aspirin 81 MG TAB.CHEW PO SCH (08:17)
[2022-01-09] MEDS: Loratadine 10 MG TABLET PO SCH (08:17)
[2022-01-09] MEDS: carvediloL 25 MG TABLET PO SCH ×2 (08:17→15:49)
[2022-01-09] MEDS: Insulin LISPRO 300 UNITS/3 ML VIAL SUBQ SCH ×4 (08:18→21:20)
[2022-01-09] MEDS: *HR* HYDROcodone/Acet 5/325 mg TABLET PO PRN ×2 (08:29→21:21)
[2022-01-09] MEDS: Iron Sucrose Complex 200 MG in 0.9 % Sodium Chloride 100 ML IVPB SCH (10:58)
[2022-01-09] MEDS: *HR* Rivaroxaban 10 MG TABLET PO SCH (15:48)
[2022-01-09] MEDS: hydrOXYzine pamoate 25 MG CAPSULE PO PRN (21:21)
[2022-01-10] MEDS: Levalbuterol Neb 1.25 MG/3 ML IH SCH ×4 (03:22→22:47)
[2022-01-10] MEDS: Levothyroxine 25 MCG TABLET PO SCH (06:49)
[2022-01-10 08:00] LABS: Basophils % 0.2 %; Eosinophils # 0.2 K/mcL (0.0-0.6); Eosinophils % 1.4 %; Hematocrit 30.4 % (35.3-44.9); Hemoglobin 8.5 g/dL (11.5-15.4); Immature Granulocytes % 1.1 % (0-4); Lymphocytes # 1.3 K/mcL (0.6-4.6); Lymphocytes % 10.2 %; Mean Corpuscular Hemoglobin 23.1 pg (28.0-33.3); Mean Corpuscular Volume 82.6 fL (83.0-100.0); Mean Platelet Volume 10.6 fL (9.4-12.4); Monocytes # 0.6 K/mcL (0.0-1.3); Neutrophils # 10.1 K/mcL (1.6-8.9); Platelet Count 210 K/mcL (140-400); Red Blood Count 3.68 M/mcL (3.82-4.97); Red Cell Distribution Width 14.9 % (11.5-14.5); Segmented Neutrophils % 82.1 %; White Blood Count 12.3 K/mcL (4.3-11.1)
[2022-01-10 08:18] LABS: Calcium 9.3 mg/dL (8.6-10.3); Magnesium 1.7 mg/dL (1.6-2.6); Potassium 4.4 mEq/L (3.5-5.1)
[2022-01-10 08:23] LABS: Anisocytosis 1+ (Not Present); Hypochromasia Present (Not Present); Platelet Estimate Normal (Normal)
[2022-01-10] MEDS: Budesonide/Formoterol 160/4.5 1 PUFF INH IH SCH ×2 (08:25→22:47)
[2022-01-10] MEDS: Insulin LISPRO 300 UNITS/3 ML VIAL SUBQ SCH ×4 (08:40→21:00)
[2022-01-10] MEDS: DilTIAZem CD (24hr) 180 MG CAP.ER.24H PO SCH ×2 (09:06→21:00)
[2022-01-10] MEDS: carvediloL 25 MG TABLET PO SCH ×2 (09:06→17:15)
[2022-01-10] MEDS: Gabapentin 400 MG CAPSULE PO SCH ×3 (09:06→20:59)
[2022-01-10] MEDS: *HR* Metformin 850 MG TABLET PO SCH ×3 (09:06→17:15)
[2022-01-10] MEDS: Loratadine 10 MG TABLET PO SCH (09:06)
[2022-01-10] MEDS: predniSONE 20 MG TABLET PO SCH (09:06)
[2022-01-10] MEDS: Furosemide 40 MG TABLET PO SCH ×2 (09:06→17:15)
[2022-01-10] MEDS: *HR* HYDROcodone/Acet 5/325 mg TABLET PO PRN (09:07)
[2022-01-10] MEDS: Aspirin 81 MG TAB.CHEW PO SCH (09:07)
[2022-01-10] MEDS: Iron Sucrose Complex 200 MG in 0.9 % Sodium Chloride 100 ML IVPB SCH (09:07)
[2022-01-10] MEDS: Simethicone 80 MG TAB.CHEW PO PRN ×2 (12:22→20:59)
[2022-01-10] MEDS: hydrOXYzine pamoate 25 MG CAPSULE PO PRN (17:15)
[2022-01-10] MEDS: *HR* Rivaroxaban 10 MG TABLET PO SCH (17:15)
[2022-01-11] MEDS: Levalbuterol Neb 1.25 MG/3 ML IH SCH ×4 (04:33→22:23)
[2022-01-11] MEDS: Levothyroxine 25 MCG TABLET PO SCH (05:42)
[2022-01-11] MEDS: Insulin LISPRO 300 UNITS/3 ML VIAL SUBQ SCH ×4 (07:23→20:16)
[2022-01-11] MEDS: DilTIAZem CD (24hr) 180 MG CAP.ER.24H PO SCH ×2 (08:22→20:14)
[2022-01-11] MEDS: Aspirin 81 MG TAB.CHEW PO SCH (08:22)
[2022-01-11] MEDS: Gabapentin 400 MG CAPSULE PO SCH ×3 (08:22→20:14)
[2022-01-11] MEDS: predniSONE 20 MG TABLET PO SCH (08:22)
[2022-01-11] MEDS: *HR* Metformin 850 MG TABLET PO SCH ×3 (08:22→20:15)
[2022-01-11] MEDS: carvediloL 25 MG TABLET PO SCH ×2 (08:23→20:14)
[2022-01-11] MEDS: Loratadine 10 MG TABLET PO SCH (08:23)
[2022-01-11] MEDS: Furosemide 40 MG TABLET PO SCH ×2 (08:23→20:15)
[2022-01-11] MEDS: Budesonide/Formoterol 160/4.5 1 PUFF INH IH SCH ×2 (08:45→22:22)
[2022-01-11] MEDS ORDERED: Azithromycin 250 MG TABLET PO SCH (10:45)
[2022-01-11] MEDS ORDERED: Cyanocobalamin (B-12) 1,000 MCG/ML VIAL IM ONE (13:35)
[2022-01-11] MEDS ORDERED: *HR* HYDROcodone/Acet 5/325 mg TABLET PO ONE (13:39)
[2022-01-11] MEDS ORDERED: Cyanocobalamin (B-12) 1,000 MCG/ML VIAL ONE (15:04)
[2022-01-11] MEDS: hydrOXYzine pamoate 25 MG CAPSULE PO PRN (15:17)
[2022-01-11] MEDS ORDERED: Piperacillin/Tazobactam 3.375 GM in 0.9 % Sodium Chloride Mini Bag 100 ML IVPB SCH (16:00)
[2022-01-11] MEDS: Simethicone 80 MG TAB.CHEW PO PRN (20:13)
[2022-01-11] MEDS: *HR* Rivaroxaban 10 MG TABLET PO SCH (20:14)
[2022-01-11] MEDS: *HR* HYDROcodone/Acet 5/325 mg TABLET PO PRN (20:14)
[2022-01-12] MEDS: Levalbuterol Neb 1.25 MG/3 ML IH SCH ×4 (03:16→21:40)
[2022-01-12 03:49] LABS: Basophils % 0.1 %; Eosinophils % 0.2 %; Hematocrit 30.7 % (35.3-44.9); Hemoglobin 8.7 g/dL (11.5-15.4); Immature Granulocytes % 1.3 % (0-4); Lymphocytes # 0.5 K/mcL (0.6-4.6); Mean Corpuscular HGB Conc 28.3 g/dL (31.6-35.5); Mean Platelet Volume 11.6 fL (9.4-12.4); Monocytes # 0.2 K/mcL (0.0-1.3); Monocytes % 1.4 %; Neutrophils # 12.5 K/mcL (1.6-8.9); Platelet Count 218 K/mcL (140-400); Red Blood Count 3.79 M/mcL (3.82-4.97); Red Cell Distribution Width 15.3 % (11.5-14.5); White Blood Count 13.4 K/mcL (4.3-11.1)
[2022-01-12] MEDS: Levothyroxine 25 MCG TABLET PO SCH (06:08)
[2022-01-12 07:11] LABS: Basophils % 0.3 %; Eosinophils # 0.1 K/mcL (0.0-0.6); Eosinophils % 1.3 %; Hematocrit 28.4 % (35.3-44.9); Immature Granulocytes % 1.7 % (0-4); Lymphocytes # 1.4 K/mcL (0.6-4.6); Lymphocytes % 16.2 %; Mean Corpuscular HGB Conc 28.2 g/dL (31.6-35.5); Mean Corpuscular Hemoglobin 22.9 pg (28.0-33.3); Mean Corpuscular Volume 81.1 fL (83.0-100.0); Mean Platelet Volume 10.7 fL (9.4-12.4); Monocytes # 0.5 K/mcL (0.0-1.3); Monocytes % 5.7 %; Neutrophils # 6.4 K/mcL (1.6-8.9); Platelet Count 184 K/mcL (140-400); Red Cell Distribution Width 15.5 % (11.5-14.5); Segmented Neutrophils % 74.8 %; White Blood Count 8.6 K/mcL (4.3-11.1)
[2022-01-12] MEDS: Budesonide/Formoterol 160/4.5 1 PUFF INH IH SCH ×2 (07:59→21:40)
[2022-01-12 08:07] LABS: Calcium 8.8 mg/dL (8.6-10.3); Potassium 3.7 mEq/L (3.5-5.1)
[2022-01-12] MEDS: Insulin LISPRO 300 UNITS/3 ML VIAL SUBQ SCH ×3 (08:18→23:03)
[2022-01-12] MEDS: Aspirin 81 MG TAB.CHEW PO SCH (08:19)
[2022-01-12] MEDS: *HR* Metformin 850 MG TABLET PO SCH ×3 (08:19→18:34)
[2022-01-12] MEDS: Cyanocobalamin (B-12) 1,000 MCG TABLET PO SCH (08:19)
[2022-01-12] MEDS: Loratadine 10 MG TABLET PO SCH (08:19)
[2022-01-12] MEDS: Gabapentin 400 MG CAPSULE PO SCH ×3 (08:19→18:34)
[2022-01-12] MEDS: Furosemide 40 MG TABLET PO SCH ×2 (08:20→18:34)
[2022-01-12] MEDS: DilTIAZem CD (24hr) 180 MG CAP.ER.24H PO SCH ×2 (08:20→23:00)
[2022-01-12] MEDS: carvediloL 25 MG TABLET PO SCH ×2 (08:20→18:34)
[2022-01-12] MEDS ORDERED: Iron Sucrose Complex 200 MG in 0.9 % Sodium Chloride 100 ML IVPB ONE (09:00)
[2022-01-12 09:06] LABS: Platelet Estimate Normal (Normal)
[2022-01-12] MEDS: Simethicone 80 MG TAB.CHEW PO PRN (10:39)
[2022-01-12] MEDS: *HR* HYDROcodone/Acet 5/325 mg TABLET PO PRN (14:47)
[2022-01-12] MEDS: hydrOXYzine pamoate 25 MG CAPSULE PO PRN (14:48)
[2022-01-12] MEDS: *HR* Rivaroxaban 10 MG TABLET PO SCH (18:34)
[2022-01-13] MEDS: Gabapentin 400 MG CAPSULE PO SCH ×3 (02:06→21:49)
[2022-01-13] MEDS: Simethicone 80 MG TAB.CHEW PO PRN ×2 (02:07→17:46)
[2022-01-13] MEDS: *HR* HYDROcodone/Acet 5/325 mg TABLET PO PRN ×2 (02:07→14:07)
[2022-01-13] MEDS: Levalbuterol Neb 1.25 MG/3 ML IH SCH ×4 (04:17→22:01)
[2022-01-13] MEDS: Levothyroxine 25 MCG TABLET PO SCH (06:20)
[2022-01-13] MEDS: DilTIAZem CD (24hr) 180 MG CAP.ER.24H PO SCH ×2 (07:54→21:49)
[2022-01-13] MEDS: Aspirin 81 MG TAB.CHEW PO SCH (07:54)
[2022-01-13] MEDS: Furosemide 40 MG TABLET PO SCH ×2 (07:55→17:08)
[2022-01-13] MEDS: *HR* Metformin 850 MG TABLET PO SCH ×3 (07:55→17:37)
[2022-01-13] MEDS: Loratadine 10 MG TABLET PO SCH (07:56)
[2022-01-13] MEDS: Cyanocobalamin (B-12) 1,000 MCG TABLET PO SCH (07:56)
[2022-01-13] MEDS: carvediloL 25 MG TABLET PO SCH ×2 (07:56→16:21)
[2022-01-13] MEDS: Insulin LISPRO 300 UNITS/3 ML VIAL SUBQ SCH ×5 (08:07→21:50)
[2022-01-13] MEDS: Budesonide/Formoterol 160/4.5 1 PUFF INH IH SCH ×2 (09:23→22:01)
[2022-01-13] MEDS: hydrOXYzine pamoate 25 MG CAPSULE PO PRN ×2 (10:37→22:03)
[2022-01-13] MEDS ORDERED: carvediloL 6.25 MG TABLET PO ONE (17:15)
[2022-01-13] MEDS: *HR* Rivaroxaban 10 MG TABLET PO SCH (17:35)
[2022-01-14] MEDS: Levalbuterol Neb 1.25 MG/3 ML IH SCH ×4 (04:23→21:22)
[2022-01-14] MEDS: Budesonide/Formoterol 160/4.5 1 PUFF INH IH SCH ×2 (09:30→21:21)
[2022-01-14] MEDS: Levothyroxine 25 MCG TABLET PO SCH (10:59)
[2022-01-14] MEDS: Insulin LISPRO 300 UNITS/3 ML VIAL SUBQ SCH ×4 (10:59→20:54)
[2022-01-14] MEDS: Loratadine 10 MG TABLET PO SCH (10:59)
[2022-01-14] MEDS: *HR* Metformin 850 MG TABLET PO SCH ×3 (11:00→17:00)
[2022-01-14] MEDS: DilTIAZem CD (24hr) 180 MG CAP.ER.24H PO SCH (11:00)
[2022-01-14] MEDS: Furosemide 40 MG TABLET PO SCH ×2 (11:00→17:00)
[2022-01-14] MEDS: carvediloL 25 MG TABLET PO SCH ×2 (11:00→17:01)
[2022-01-14] MEDS: Cyanocobalamin (B-12) 1,000 MCG TABLET PO SCH (11:01)
[2022-01-14] MEDS: Gabapentin 400 MG CAPSULE PO SCH ×3 (11:01→20:53)
[2022-01-14] MEDS: Aspirin 81 MG TAB.CHEW PO SCH (11:01)
[2022-01-14] MEDS: Simethicone 80 MG TAB.CHEW PO PRN ×2 (11:22→20:53)
[2022-01-14] MEDS ORDERED: Benzocaine 20% 12 APPL GEL..GRAM. TP PRN (13:43)
[2022-01-14] MEDS: *HR* Rivaroxaban 10 MG TABLET PO SCH (17:00)
[2022-01-14] MEDS: *HR* HYDROcodone/Acet 5/325 mg TABLET PO PRN (20:53)
[2022-01-15] MEDS: DilTIAZem CD (24hr) 180 MG CAP.ER.24H PO SCH ×3 (02:13→20:33)
[2022-01-15] MEDS: Levalbuterol Neb 1.25 MG/3 ML IH SCH ×4 (04:08→22:15)
[2022-01-15] MEDS: Levothyroxine 25 MCG TABLET PO SCH (06:07)
[2022-01-15] MEDS: Budesonide/Formoterol 160/4.5 1 PUFF INH IH SCH ×2 (09:21→22:14)
[2022-01-15] MEDS: Loratadine 10 MG TABLET PO SCH (09:26)
[2022-01-15] MEDS: Cyanocobalamin (B-12) 1,000 MCG TABLET PO SCH (09:27)
[2022-01-15] MEDS: Gabapentin 400 MG CAPSULE PO SCH ×3 (09:27→20:32)
[2022-01-15] MEDS: Aspirin 81 MG TAB.CHEW PO SCH (09:27)
[2022-01-15] MEDS: carvediloL 25 MG TABLET PO SCH ×2 (09:27→16:36)
[2022-01-15] MEDS: Furosemide 40 MG TABLET PO SCH ×2 (09:27→16:36)
[2022-01-15] MEDS: *HR* Metformin 850 MG TABLET PO SCH ×3 (09:28→16:36)
[2022-01-15] MEDS: Insulin LISPRO 300 UNITS/3 ML VIAL SUBQ SCH ×4 (09:30→20:34)
[2022-01-15] MEDS: *HR* HYDROcodone/Acet 5/325 mg TABLET PO PRN ×2 (09:38→21:39)
[2022-01-15] MEDS: Simethicone 80 MG TAB.CHEW PO PRN ×2 (12:35→20:32)
[2022-01-15] MEDS: *HR* Rivaroxaban 10 MG TABLET PO SCH (16:35)
[2022-01-16] MEDS: Levalbuterol Neb 1.25 MG/3 ML IH SCH ×4 (03:28→21:32)
[2022-01-16] MEDS: Levothyroxine 25 MCG TABLET PO SCH (08:08)
[2022-01-16] MEDS: Budesonide/Formoterol 160/4.5 1 PUFF INH IH SCH ×2 (08:53→21:32)
[2022-01-16] MEDS: Loratadine 10 MG TABLET PO SCH (09:01)
[2022-01-16] MEDS: Cyanocobalamin (B-12) 1,000 MCG TABLET PO SCH (09:01)
[2022-01-16] MEDS: Aspirin 81 MG TAB.CHEW PO SCH (09:02)
[2022-01-16] MEDS: Gabapentin 400 MG CAPSULE PO SCH ×3 (09:02→21:34)
[2022-01-16] MEDS: *HR* Metformin 850 MG TABLET PO SCH ×3 (09:02→16:17)
[2022-01-16] MEDS: DilTIAZem CD (24hr) 180 MG CAP.ER.24H PO SCH ×2 (09:02→21:34)
[2022-01-16] MEDS: Insulin LISPRO 300 UNITS/3 ML VIAL SUBQ SCH ×4 (09:03→21:36)
[2022-01-16] MEDS: carvediloL 25 MG TABLET PO SCH ×2 (09:03→16:17)
[2022-01-16] MEDS: Furosemide 40 MG TABLET PO SCH ×2 (09:03→16:17)
[2022-01-16] MEDS: *HR* HYDROcodone/Acet 5/325 mg TABLET PO PRN (10:04)
[2022-01-16] MEDS: Simethicone 80 MG TAB.CHEW PO PRN ×2 (12:49→21:41)
[2022-01-16] MEDS: hydrOXYzine pamoate 25 MG CAPSULE PO PRN (13:38)
[2022-01-16] MEDS: *HR* Rivaroxaban 10 MG TABLET PO SCH (16:17)
[2022-01-17] MEDS: Levalbuterol Neb 1.25 MG/3 ML IH SCH ×4 (04:25→21:00)
[2022-01-17] MEDS: Aspirin 81 MG TAB.CHEW PO SCH (08:09)
[2022-01-17] MEDS: Levothyroxine 25 MCG TABLET PO SCH (08:09)
[2022-01-17] MEDS: Gabapentin 400 MG CAPSULE PO SCH ×3 (08:10→22:31)
[2022-01-17] MEDS: *HR* Metformin 850 MG TABLET PO SCH ×3 (08:10→16:04)
[2022-01-17] MEDS: Loratadine 10 MG TABLET PO SCH (08:10)
[2022-01-17] MEDS: DilTIAZem CD (24hr) 180 MG CAP.ER.24H PO SCH (08:10)
[2022-01-17] MEDS: Furosemide 40 MG TABLET PO SCH (08:11)
[2022-01-17] MEDS: Cyanocobalamin (B-12) 1,000 MCG TABLET PO SCH (08:11)
[2022-01-17] MEDS: Insulin LISPRO 300 UNITS/3 ML VIAL SUBQ SCH ×4 (08:12→22:30)
[2022-01-17] MEDS: carvediloL 25 MG TABLET PO SCH ×2 (08:22→16:05)
[2022-01-17 08:37] LABS: Hematocrit 27.3 % (35.3-44.9); Hemoglobin 7.6 g/dL (11.5-15.4); Mean Corpuscular HGB Conc 27.8 g/dL (31.6-35.5); Mean Corpuscular Hemoglobin 23.8 pg (28.0-33.3); Mean Corpuscular Volume 85.6 fL (83.0-100.0); Platelet Count 130 K/mcL (140-400); Red Blood Count 3.19 M/mcL (3.82-4.97); White Blood Count 6.1 K/mcL (4.3-11.1)
[2022-01-17 09:25] LABS: Calcium 8.3 mg/dL (8.6-10.3); Potassium 4.7 mEq/L (3.5-5.1)
[2022-01-17] MEDS: Budesonide/Formoterol 160/4.5 1 PUFF INH IH SCH ×2 (09:25→21:00)
[2022-01-17] MEDS: *HR* HYDROcodone/Acet 5/325 mg TABLET PO PRN (13:20)
[2022-01-17] MEDS ORDERED: 0.9 % Sodium Chloride 1,000 ML IVC SCH (15:45)
[2022-01-17] MEDS: *HR* Rivaroxaban 10 MG TABLET PO SCH (16:05)
[2022-01-17] MEDS ORDERED: Ringers Solution, Lactated 1,000 ML IVC SCH (21:30)
[2022-01-18] MEDS ORDERED: Ringers Solution, Lactated 500 ML IVC ONE (02:33)
[2022-01-18 03:28] LABS: Basophils % 0.2 %; Eosinophils # 0.2 K/mcL (0.0-0.6); Eosinophils % 2.6 %; Hematocrit 26.3 % (35.3-44.9); Hemoglobin 7.3 g/dL (11.5-15.4); Immature Granulocytes % 0.6 % (0-4); Lymphocytes # 1.2 K/mcL (0.6-4.6); Lymphocytes % 18.7 %; Mean Corpuscular HGB Conc 27.8 g/dL (31.6-35.5); Mean Corpuscular Hemoglobin 24.1 pg (28.0-33.3); Mean Corpuscular Volume 86.8 fL (83.0-100.0); Mean Platelet Volume 10.6 fL (9.4-12.4); Monocytes # 0.5 K/mcL (0.0-1.3); Monocytes % 7.8 %; Neutrophils # 4.6 K/mcL (1.6-8.9); Platelet Count 118 K/mcL (140-400); Red Blood Count 3.03 M/mcL (3.82-4.97); Red Cell Distribution Width 18.3 % (11.5-14.5); Segmented Neutrophils % 70.1 %; White Blood Count 6.6 K/mcL (4.3-11.1)
[2022-01-18 03:40] LABS: Albumin/Globulin Ratio 1.3 (1.1-2.2); Bilirubin,Total 0.3 mg/dL (0.3-1.0); Globulin 2.3 g/dL (2.4-3.5); Potassium 5.5 mEq/L (3.5-5.1); Total Protein 5.3 g/dL (6.4-8.9)
[2022-01-18] MEDS: Levalbuterol Neb 1.25 MG/3 ML IH SCH ×4 (03:48→21:04)
[2022-01-18 03:52] LABS: Microcytosis Present (Not Present)
[2022-01-18 03:54] LABS: Anisocytosis 1+ (Not Present); Basophilic Stippling 1+ (Not Present)
[2022-01-18 03:55] LABS: Hypochromasia Present (Not Present); Poikilocytosis 1+ (Not Present)
[2022-01-18] MEDS: DilTIAZem CD (24hr) 180 MG CAP.ER.24H PO SCH ×2 (04:26→10:25)
[2022-01-18] MEDS ORDERED: Albumin Human 5% 12.5 GM/250 ML IV.SOLN IVPB ONE (04:43)
[2022-01-18] MEDS: Levothyroxine 25 MCG TABLET PO SCH (06:28)
[2022-01-18] MEDS: Insulin LISPRO 300 UNITS/3 ML VIAL SUBQ SCH ×4 (07:52→21:41)
[2022-01-18] MEDS: *HR* Metformin 850 MG TABLET PO SCH (08:11)
[2022-01-18] MEDS: Budesonide/Formoterol 160/4.5 1 PUFF INH IH SCH ×2 (09:07→21:04)
[2022-01-18] MEDS: Loratadine 10 MG TABLET PO SCH (10:23)
[2022-01-18] MEDS: Gabapentin 400 MG CAPSULE PO SCH ×3 (10:23→21:40)
[2022-01-18] MEDS: Aspirin 81 MG TAB.CHEW PO SCH (10:23)
[2022-01-18] MEDS: Cyanocobalamin (B-12) 1,000 MCG TABLET PO SCH (10:24)
[2022-01-18] MEDS ORDERED: Furosemide 20 MG/2 ML VIAL IVP ONE ×2 (13:30→16:45)
[2022-01-18] MEDS ORDERED: Albumin 25% 25gram/100mL 25 GM/100 ML IV.SOLN IVPB ONE (13:31)
[2022-01-18] MEDS: *HR* Rivaroxaban 10 MG TABLET PO SCH (16:09)
[2022-01-18] MEDS: carvediloL 6.25 MG TABLET PO SCH (16:12)
[2022-01-18] MEDS ORDERED: 0.9 % Sodium Chloride 250 ML IVC SCH (21:15)
[2022-01-19] MEDS: Levalbuterol Neb 1.25 MG/3 ML IH SCH ×4 (04:07→21:06)
[2022-01-19 07:21] LABS: Basophils % 0.3 %; Eosinophils # 0.1 K/mcL (0.0-0.6); Eosinophils % 2.3 %; Hematocrit 29.1 % (35.3-44.9); Hemoglobin 8.4 g/dL (11.5-15.4); Immature Granulocytes % 0.5 % (0-4); Lymphocytes # 0.7 K/mcL (0.6-4.6); Lymphocytes % 17.9 %; Mean Corpuscular HGB Conc 28.9 g/dL (31.6-35.5); Mean Corpuscular Hemoglobin 24.8 pg (28.0-33.3); Mean Corpuscular Volume 85.8 fL (83.0-100.0); Mean Platelet Volume 10.9 fL (9.4-12.4); Monocytes # 0.4 K/mcL (0.0-1.3); Monocytes % 9.6 %; Neutrophils # 2.7 K/mcL (1.6-8.9); Platelet Count 105 K/mcL (140-400); Red Blood Count 3.39 M/mcL (3.82-4.97); Red Cell Distribution Width 17.5 % (11.5-14.5); Segmented Neutrophils % 69.4 %; White Blood Count 3.9 K/mcL (4.3-11.1)
[2022-01-19 07:31] LABS: Calcium 8.3 mg/dL (8.6-10.3); Magnesium 1.2 mg/dL (1.6-2.6); Potassium 4.6 mEq/L (3.5-5.1)
[2022-01-19] MEDS: Insulin LISPRO 300 UNITS/3 ML VIAL SUBQ SCH ×4 (07:45→22:07)
[2022-01-19] MEDS: Loratadine 10 MG TABLET PO SCH (09:04)
[2022-01-19] MEDS: Gabapentin 400 MG CAPSULE PO SCH ×3 (09:04→22:06)
[2022-01-19] MEDS: DilTIAZem CD (24hr) 180 MG CAP.ER.24H PO SCH (09:05)
[2022-01-19] MEDS: Aspirin 81 MG TAB.CHEW PO SCH (09:05)
[2022-01-19] MEDS: Levothyroxine 25 MCG TABLET PO SCH (09:05)
[2022-01-19] MEDS: carvediloL 6.25 MG TABLET PO SCH ×2 (09:05→16:09)
[2022-01-19] MEDS: Cyanocobalamin (B-12) 1,000 MCG TABLET PO SCH (09:06)
[2022-01-19] MEDS: Budesonide/Formoterol 160/4.5 1 PUFF INH IH SCH ×2 (09:23→21:06)
[2022-01-19 09:58] LABS: Anisocytosis 1+ (Not Present); Hypochromasia Present (Not Present)
[2022-01-19 09:59] LABS: Platelet Estimate Slight Decrease (Normal)
[2022-01-19] MEDS: *HR* Rivaroxaban 10 MG TABLET PO SCH (16:09)
[2022-01-19] MEDS: Simethicone 80 MG TAB.CHEW PO PRN (16:14)
[2022-01-20] MEDS: Levalbuterol Neb 1.25 MG/3 ML IH SCH ×4 (04:38→20:24)
[2022-01-20] MEDS: Insulin LISPRO 300 UNITS/3 ML VIAL SUBQ SCH ×4 (07:55→21:00)
[2022-01-20] MEDS: DilTIAZem CD (24hr) 180 MG CAP.ER.24H PO SCH (08:04)
[2022-01-20] MEDS: Cyanocobalamin (B-12) 1,000 MCG TABLET PO SCH (08:04)
[2022-01-20] MEDS: Gabapentin 400 MG CAPSULE PO SCH ×2 (08:04→16:28)
[2022-01-20] MEDS: Loratadine 10 MG TABLET PO SCH (08:04)
[2022-01-20] MEDS: Aspirin 81 MG TAB.CHEW PO SCH (08:04)
[2022-01-20] MEDS: carvediloL 6.25 MG TABLET PO SCH ×2 (08:04→16:28)
[2022-01-20 08:49] LABS: Basophils % 0.2 %; Eosinophils # 0.1 K/mcL (0.0-0.6); Eosinophils % 2.2 %; Hematocrit 31.4 % (35.3-44.9); Immature Granulocytes % 0.4 % (0-4); Lymphocytes # 0.8 K/mcL (0.6-4.6); Lymphocytes % 17.1 %; Mean Corpuscular HGB Conc 28.7 g/dL (31.6-35.5); Mean Corpuscular Hemoglobin 24.7 pg (28.0-33.3); Mean Platelet Volume 10.5 fL (9.4-12.4); Monocytes # 0.5 K/mcL (0.0-1.3); Monocytes % 10.6 %; Neutrophils # 3.2 K/mcL (1.6-8.9); Platelet Count 108 K/mcL (140-400); Red Blood Count 3.65 M/mcL (3.82-4.97); Red Cell Distribution Width 18.3 % (11.5-14.5); Segmented Neutrophils % 69.5 %; White Blood Count 4.6 K/mcL (4.3-11.1)
[2022-01-20] MEDS: Budesonide/Formoterol 160/4.5 1 PUFF INH IH SCH ×2 (08:58→20:24)
[2022-01-20 09:05] LABS: BUN/Creatinine Ratio 30 (6-26); Blood Urea Nitrogen 20 mg/dL (8-23); Calcium 8.9 mg/dL (8.6-10.3); Carbon Dioxide 38 mEq/L (23-29); Chloride 99 mEq/L (98-107); Glucose 161 mg/dL (70-105); Osmolality,Calculated 300 (280-300); Potassium 4.4 mEq/L (3.5-5.1); Sodium 142 mEq/L (136-145)
[2022-01-20 09:27] LABS: Anisocytosis 1+ (Not Present); Hypochromasia Present (Not Present); Platelet Estimate Slight Decrease (Normal)
[2022-01-20] MEDS: Levothyroxine 25 MCG TABLET PO SCH (09:57)
[2022-01-20 13:26] LABS: Influenza A PCR Negative (Negative); Influenza B PCR Negative (Negative); Resp. Syncytial Virus PCR Negative (Negative)
[2022-01-20 13:27] LABS: SARS-CoV-2 by PCR (In House) Negative (Negative)
[2022-01-20] MEDS: *HR* Rivaroxaban 10 MG TABLET PO SCH (16:28)
[2022-01-20] MEDS: Furosemide 40 MG TABLET PO SCH (16:29)
[2022-01-21] MEDS: Gabapentin 400 MG CAPSULE PO SCH ×4 (00:47→21:34)
[2022-01-21] MEDS: Levalbuterol Neb 1.25 MG/3 ML IH SCH ×4 (03:29→21:51)
[2022-01-21] MEDS: Insulin LISPRO 300 UNITS/3 ML VIAL SUBQ SCH ×4 (07:45→21:38)
[2022-01-21] MEDS: DilTIAZem CD (24hr) 180 MG CAP.ER.24H PO SCH (08:36)
[2022-01-21] MEDS: Loratadine 10 MG TABLET PO SCH (08:36)
[2022-01-21] MEDS: Furosemide 40 MG TABLET PO SCH (08:37)
[2022-01-21] MEDS: Cyanocobalamin (B-12) 1,000 MCG TABLET PO SCH (08:38)
[2022-01-21] MEDS: Aspirin 81 MG TAB.CHEW PO SCH (08:38)
[2022-01-21] MEDS: hydrOXYzine pamoate 25 MG CAPSULE PO PRN ×2 (08:38→13:57)
[2022-01-21] MEDS: carvediloL 6.25 MG TABLET PO SCH (08:38)
[2022-01-21] MEDS: Levothyroxine 25 MCG TABLET PO SCH (08:44)
[2022-01-21] MEDS ORDERED: carvediloL 6.25 MG TABLET PO ONE (09:25)
[2022-01-21 10:14] LABS: Basophils % 0.5 %; Eosinophils # 0.1 K/mcL (0.0-0.6); Hematocrit 30.4 % (35.3-44.9); Hemoglobin 8.9 g/dL (11.5-15.4); Immature Granulocytes % 0.8 % (0-4); Lymphocytes # 0.7 K/mcL (0.6-4.6); Lymphocytes % 18.1 %; Mean Corpuscular HGB Conc 29.3 g/dL (31.6-35.5); Mean Corpuscular Hemoglobin 24.5 pg (28.0-33.3); Mean Corpuscular Volume 83.7 fL (83.0-100.0); Mean Platelet Volume 10.6 fL (9.4-12.4); Monocytes # 0.4 K/mcL (0.0-1.3); Monocytes % 9.6 %; Neutrophils # 2.5 K/mcL (1.6-8.9); Platelet Count 105 K/mcL (140-400); Red Blood Count 3.63 M/mcL (3.82-4.97); Red Cell Distribution Width 17.9 % (11.5-14.5); White Blood Count 3.7 K/mcL (4.3-11.1)
[2022-01-21 10:26] LABS: BUN/Creatinine Ratio 22 (6-26); Blood Urea Nitrogen 14 mg/dL (8-23); Calcium 8.6 mg/dL (8.6-10.3); Carbon Dioxide 35 mEq/L (23-29); Chloride 98 mEq/L (98-107); Glucose 194 mg/dL (70-105); Osmolality,Calculated 296 (280-300); Sodium 140 mEq/L (136-145)
[2022-01-21] MEDS: Budesonide/Formoterol 160/4.5 1 PUFF INH IH SCH ×2 (10:56→21:51)
[2022-01-21] MEDS ORDERED: Furosemide 40 MG/4 ML VIAL IVP ONE (12:58)
[2022-01-21] MEDS: *HR* Rivaroxaban 10 MG TABLET PO SCH ×2 (17:08→17:53)
[2022-01-21] MEDS: carvediloL 25 MG TABLET PO SCH (17:09)
[2022-01-21] MEDS ORDERED: Furosemide 40 MG/4 ML VIAL IVP SCH (21:00)
[2022-01-21] MEDS: Simethicone 80 MG TAB.CHEW PO PRN (21:34)
[2022-01-22] MEDS: Levalbuterol Neb 1.25 MG/3 ML IH SCH ×4 (04:26→21:38)
[2022-01-22] MEDS: Levothyroxine 25 MCG TABLET PO SCH (05:48)
[2022-01-22] MEDS: Gabapentin 400 MG CAPSULE PO SCH ×3 (07:39→21:58)
[2022-01-22] MEDS: Cyanocobalamin (B-12) 1,000 MCG TABLET PO SCH (07:40)
[2022-01-22] MEDS: Loratadine 10 MG TABLET PO SCH (07:40)
[2022-01-22] MEDS: carvediloL 25 MG TABLET PO SCH ×2 (07:40→16:25)
[2022-01-22] MEDS: Insulin LISPRO 300 UNITS/3 ML VIAL SUBQ SCH ×4 (07:41→21:58)
[2022-01-22] MEDS: Aspirin 81 MG TAB.CHEW PO SCH (07:41)
[2022-01-22] MEDS: Furosemide 40 MG TABLET PO SCH ×2 (08:31→16:26)
[2022-01-22] MEDS: Budesonide/Formoterol 160/4.5 1 PUFF INH IH SCH ×2 (10:19→21:38)
[2022-01-22] MEDS: *HR* Rivaroxaban 10 MG TABLET PO SCH (16:26)
[2022-01-23] MEDS: Levalbuterol Neb 1.25 MG/3 ML IH SCH ×4 (04:39→22:14)
[2022-01-23] MEDS: Gabapentin 400 MG CAPSULE PO SCH ×3 (08:41→20:16)
[2022-01-23] MEDS: Cyanocobalamin (B-12) 1,000 MCG TABLET PO SCH (08:41)
[2022-01-23] MEDS: Aspirin 81 MG TAB.CHEW PO SCH (08:42)
[2022-01-23] MEDS: Levothyroxine 25 MCG TABLET PO SCH (08:43)
[2022-01-23] MEDS: Insulin LISPRO 300 UNITS/3 ML VIAL SUBQ SCH ×4 (08:44→20:18)
[2022-01-23] MEDS: Loratadine 10 MG TABLET PO SCH (08:44)
[2022-01-23] MEDS: Furosemide 40 MG TABLET PO SCH ×2 (08:44→17:01)
[2022-01-23] MEDS: carvediloL 6.25 MG TABLET PO SCH ×2 (08:52→17:02)
[2022-01-23] MEDS: Budesonide/Formoterol 160/4.5 1 PUFF INH IH SCH ×2 (11:10→22:14)
[2022-01-23] MEDS: Simethicone 80 MG TAB.CHEW PO PRN (17:01)
[2022-01-23] MEDS: *HR* Rivaroxaban 10 MG TABLET PO SCH (17:02)
[2022-01-23] MEDS: hydrOXYzine pamoate 25 MG CAPSULE PO PRN (20:16)
[2022-01-24] MEDS: Levalbuterol Neb 1.25 MG/3 ML IH SCH ×3 (03:24→14:43)
[2022-01-24] MEDS: Insulin LISPRO 300 UNITS/3 ML VIAL SUBQ SCH ×2 (08:32→12:10)
[2022-01-24] MEDS: Aspirin 81 MG TAB.CHEW PO SCH (08:33)
[2022-01-24] MEDS: Cyanocobalamin (B-12) 1,000 MCG TABLET PO SCH (08:34)
[2022-01-24] MEDS: Furosemide 40 MG TABLET PO SCH (08:35)
[2022-01-24] MEDS: Levothyroxine 25 MCG TABLET PO SCH (08:35)
[2022-01-24] MEDS: Gabapentin 400 MG CAPSULE PO SCH ×2 (08:36→15:11)
[2022-01-24] MEDS: carvediloL 6.25 MG TABLET PO SCH (08:36)
[2022-01-24] MEDS: Loratadine 10 MG TABLET PO SCH (08:36)
[2022-01-24] MEDS: Budesonide/Formoterol 160/4.5 1 PUFF INH IH SCH (09:05)
[2022-01-24 13:02] LABS: Influenza A PCR Negative (Negative); Influenza B PCR Negative (Negative); Resp. Syncytial Virus PCR Negative (Negative)
[2022-01-24 13:04] LABS: SARS-CoV-2 by PCR (In House) Negative (Negative)
[2022-01-24 15:07] VITALS: RESP 16; TEMP 97.9; O2SAT 93
[2022-01-24 15:48] VITALS: BP 133/82; PULSE 71
== END 2022-01-24 16:00 | DRG 189 ==
LOC: INPPIK 16:50 → SUATTDRO 16:50
PROVIDERS: ADMIT Internal Medicine; ATTEND Nurse Practitioner